=== PATIENT | male | born 1950 | race Caucasian/White ===

== ENCOUNTER 2024-10-22 14:25 | Outpatient (REF) | payer MEDICARE, SELFPAY ==
--- OUTSIDE RECORDS SUMMARY | 2024-10-22 14:36 | XMS_ITS | Clinical Summary ---
Author Organization [facility] Address [address] [place] [address] Care Team Providers Care Cath Lab Radiological Technologist Name Role Phone Sophia Monroe MD Primary Care Provider [phone] Nahum Benavides MD Unavailable Cuba Claire MD Unavailable [phone] Alan Harris MD Unavailable [phone] Jessica Nelson MD Unavailable [phone] Allergies Active Allergy Reactions Criticality Noted Date Comments Bee Venom Anaphylaxis,Swelling High 12/03/2020 FACIAL SWELLING, LOCALIZED SWELLING LOCALIZED Metoprolol Hives Medium 11/14/2020 Medications atenolol (TENORMIN) 25 MG tablet Take 1 tablet (25 mg total) by mouth daily. Active atorvastatin (LIPITOR) 80 MG tablet Take 1 tablet (80 mg total) by mouth nightly. Active Cholecalciferol (Vitamin D) 50 MCG (2000 UT) Cap Take by mouth. Active fenofibrate (TRICOR) 48 MG tablet Take 1 tablet (48 mg total) by mouth. Active fluticasone (FloNASE) 50 mcg/spray nasal spray See Instructions, SPRAY 1 SPRAY INTO BOTH NARES EVERY DAY, # 16 mL, 0 Refills, Maintenance, 03/11/23 15:04:00 EDT, [facility], 60, SPRAY 1 SPRAY INTO BOTH NARES EVERY DAY, 173, cm, 03/11/23 11:11:00 EDT, Height, 112, kg, 02/16/23 17:30:00 EDT, . 3 Active Multiple Vitamin (Multivitamin Adult) Tab Take 1 tablet by mouth daily. Active OMEprazole (PriLOSEC) 20 MG capsule Take 1 capsule (20 mg total) by mouth daily. Active Aubagio 14 MG Tab Take 14 mg by mouth daily. 4 Active EPINEPHrine 0.3 mg/0.3 mL IJ auto-injectionInd ications:Bee sting allergy Inject 0.3 mL (0.3 mg total) into the thigh once as needed for allergic reaction. Then, call 911. 2 each 4 Active aspirin 81 MG chewable tablet Chew 1 tablet (81 mg total) daily. Active benzonatate (TESSALON) 100 MG capsuleIndication s:Acute cough Take 1 capsule (100 mg total) by mouth 3 (three) times a day as needed for cough. 30 capsule 4 Active clotrimazole-beta methasone (LOTRISONE) creamIndications: Rash Apply topically 2 (two) times a day. To left thigh and abdomen for up to 14 days 45 g 4 Active finasteride (PROSCAR) 5 MG tablet Take 1 tablet (5 mg total) by mouth daily. Active oxybutynin (DITROPAN-XL) 10 MG 24 hr tablet Take 1 tablet (10 mg total) by mouth nightly. 4 Active Gemtesa 75 MG tablet Take 1 tablet (75 mg total) by mouth daily. 4 Active FLUoxetine (PROzac) 40 MG capsuleIndication s:Anxiety TAKE 1 CAPSULE BY MOUTH EVERY DAY 90 capsule 2 5 Active SUPPLY DME MISCIndications:O SA (obstructive sleep apnea) ResMed AirSense 11 with modem only (no substitute, brand medically necessary) auto 5-15 cmH2O, EPR 3 multimedia specialist, heated humidification , heated tubing, AirFit N30 or patient preference, FiNC data link to be active for indefinite use, please provide all supplies as eligible based on coverage (or on demand if patient preference), NASIR 99 1 each 5 Active amLODIPine (NORVASC) 10 MG tabletIndications :Primary hypertension TAKE 1 TABLET BY MOUTH EVERY DAY 90 tablet 5 Active Active Problems Problem Noted Date Diagnosed Date Moderate obstructive sleep apnea 07/23/2024 Avascular necrosis of bone of right hip 05/22/20 24 BPH (benign prostatic hyperplasia) 05/22/2024 Cervical spondylosis 05/22/2024 Chronic kidney disease, stage 3 05/22/2024 Chronic sinusitis 05/22/2024 Elevated PSA 05/22/2024 GERD (gastroesophageal reflux disease) Impaired fasting glucose 05/22/2024 Lumbar radiculopathy 05/22/2024 Nocturia 05/22/2024 S/P total hip arthroplasty 05/22/2024 Sigmoid diverticulosis 05/22/2024 Hypertension 01/17/2024 Anxiety 01/17/2024 Depression 01/17/2024 MS (multiple sclerosis) 01/17/2024 Hyperlipidemia 01/17/2024 Class 3 severe obesity with serious comorbidity and body mass index (BMI) of 40.0 to 44.9 in adult 01/17/2024 Coronary arteriosclerosis 10/24/2022 Osteoarthritis of left hip 07/08/2022 Spinal stenosis of lumbar re gion without neurogenic claudication 10/03/2020 Arthritis of right hip 09/25/2020 DDD (degenerative disc disease), lumbar 09/26/19 Lumbar back pain with radicu lopathy affecting right lower extremity 09/25/2020 Chronic right shoulder pain 04/22/2017 Encounters Date Type Department Care Team Description 10/22/2024 Scanned Document [facility] [address] [place] [address] Urology, Scan 08/31/[address] [address] Sophia Monroe MD 08/23/[address] [phone] Sophia Monroe MD Primary hypertension 08/22/2024 Scanned Document [facility]monary [address] [address] Kelsi Bonner MD from Last 3 Months Immunizations Immunization Administration Dates Next Due Pneumococcal Conjugate 13-Valent 07/20/2019 Pneumococcal Polysaccharide 23-Valent 10/09/2020 Family History Medical History Relation Name Comments Heart disease Father Prostate cancer Father 85 or older Breast cancer Sister 1 Aliza Lupus Sister 1 Aliza Multiple sclerosis Sister 2 Rosanna Relation Name Status Comments Father Mother Sister 1 Aliza Alive Sister 2 Rosanna Alive Social History Tobacco Use Types Packs/Day Years Used Date Smoking Tobacco: Never Smokeless Tobacco: Never Tobacco Cessation:Counseling Given: Not Answered Alcohol Use Standard Drinks/Week Comments Not Currently 0 (1 standard drink = 0.6 oz pur e alcohol) PHQ-2 Answer Date Recorded PHQ-2 Total Score 1 01/16/2024 Sex and Gender Information Value Date Recorded Sex Assigned at Male 05/21/2024 11:03 AM EST Legal Sex Male 11:37 AM EDT Gender Identity Choose not to disclose 11:03 AM EST Sexual Orientation Choose not to disclose 2023 11:03 AM EST Last Filed Vital Signs Vital Sign Reading Time Taken Comments Blood Pressure 122/72 07/09/2024 8:12 AM EST Pulse 55 07/09/2024 8:12 AM EST Temperature 36.2 ??C (97.2 ??F) 07/09/2024 8:12 AM ES T Respiratory Rate 17 07/09/2024 8:12 AM EST Oxygen Saturation 99% 07/09/2024 8:12 AM EST Inhaled Oxygen Concentration - - Weight 114 kg (252 lb 6.4 oz) 07/09/2024 8:12 AM EST Height 167.6 cm (5' 6 ) 07/09/2024 8:12 AM EST Body Mass Index 40.74 07/09/2024 8:12 AM EST Plan of Treatment Upcoming Encounters Date Type Department Care Team (Late st Contact Info) Description 11/14/2024 11:30 AM EDT Office Visit [facility] [place] [address] [place] [phone] Kelsi Bonner MD [address] [place], [place] [address] [place], [place] [phone] 01/03/2025 10:00 AM EDT Office Visit [address] [place] [phone] Sophia Monroe MD [address] [place] [address] Health Maintenance Due Date Last Done Comments Hepatitis C Virus Screening 1950 Annual Wellness Visit 1969 Physical 1969 DTaP/Tdap/Td Vaccines (1 - Tdap) 1970 Colonoscopy 1996 Zoster (Shingles) Vaccine (1 of 2) 2001 RSV Vaccine 60 years and older and Patients (1 - Risk 60-74 years 1-dose series) 2011 DXA Bone Density (Females,Ages 65 and older) 2016 COVID-19 Vaccine ( season) 2024 03/31/2023, 02/26/2022, 09/17/2021, Additional history exists Influenza Vaccine 01/11/2025 03/31/2023, , 03/10/2021, Additional history exists Pneumococcal Vaccines 50+ Completed 10/09/2020, 12/2019 Hepatitis B Vaccines Aged Out No long er eligible based on patient's age to complete this topic Insurance MEDICARE PART A & B [facility] Care Teams Cath Lab Radiological Technologist Relationship Specialty Start Date End Date Sophia Monroe MD [address] [place] [address] PCP - General Internal Medicine 01/16/24 Nahum Benavides MD [address] [place] [address] [address] [place] [address] Neurology 01/17/24 Cuba Claire MD 100 [facility] [address] [place] [address] Referring Provider 01/17/24 Alan Harris MD [address] [address] Referring Provider Surgery, Orthopedic 01/17/24 Jessica Nelson MD [address] [facility] [place] [address] Cardiovascular Disease 04/03/24
--- OUTSIDE RECORDS SUMMARY | 2024-10-22 14:36 | XMS_ITS | Data Portability ---
Author Organization [place] [facility] [place] Address [address] [place] [address] Care Team Providers Care Senior Counsel Commercial Name Role Phone [facility] Primary Care Provide r [facility] Referring Provider Assessment No assessment recorded. Plan of Treatment Reminders Order Date Submit Date Provider Last Modified By Organization Details Last Modified Time Details Appointments None record ed. Lab None record ed. Referral None record ed. Procedures None record ed. Surgeries None record ed. Imaging XR, hip, unilat eral, 2 or 3 view 023 09/29/19 [email or web address], [address], [place], [address], 3 17:13:15 Medication Orders None record ed. Patient TargetsNo targets recorded. Patient InstructionsNo instructions recorded. Reason for Referral None Reported. Results Created Date Observation Date Name Description Value Unit Range Abnormal Flag Note LastModifiedBy Organization Detail LastModifiedTime 11/06/19 23 11/05/2022 CT, pelvi s, w/o contr ast No observ ation record ed. [email or web address] ([facility]) [address] , [place], [address], 11/05/2022 15:58:29 Result Notes None recorded. Procedures Surgical History None recorded. Imaging Results Imaging Date Name Status LastModified by Organiz ation Details LastModified Time 11/05/2022 CT, pelvis, w/o contrast completed [email or web address] ([facility]) [address], [place], [address], 11/05/2022 15:58:29 Procedure Notes None recorded. Medical Equipment None Reported. Allergies Allergen ID Allergen Name Allergen Category Reaction Reaction Severity Criticality Documentation Date Start Date Code Code System Note Provider Name and Address Organization Details Recorded Time 1241 metoprolo l Not available Not available Not available Not available 09/10/2022 6918 RxNorm Sotero Wheat null, [place] - [facility] 3 08:36:41 1242 honey bee venom medicatio n Not available Not available Not available 09/10/2022 17734 7 RxNorm Sotero [place] null, [place] - [facility] 3 08:37:29 Medications Name Sig Start Date Stop Date Status Note LastModified by Organization Details LastModified Time fluoxetine 40 mg capsule TAKE 1 CAPSULE BY MOUTH DAILY active Not Available Not Available Not Available amoxicillin 500 mg capsule TAKE 1 CAPSULE EVERY 6 HOURS UNTIL FINISHED active Not Available Not Available No t Available neomycin-abimael ymyxin-hydro judy 3.5 mg/mL-10,000 unit/mL-1 % ear solution INSTILL 5 DROPS INTO THE LEFT EAR TWICE A DAY active Not Available Not Available No t Available atorvastatin 80 mg tablet TAKE 1 TABLET BY MOUTH EVERYDAY AT BEDTIME active Not Available Not Available No t Available oxybutynin chloride ER 10 mg tablet,exten ded release 24 hr TAKE 1 TABLET BY MOUTH EVERY DAY active Not Available Not Available No t Available azithromycin 250 mg tablet TAKE 2 TABLETS BY MOUTH TODAY, THEN TAKE 1 TABLET DAILY FOR 4 DAYS active Not Available Not Available No t Available lisinopril 20 mg tablet TAKE 1 TABLET BY MOUTH EVERY DAY active Not Available Not Available No t Available atenolol 25 mg tablet TAKE 1 TABLET BY MOUTH EVERY DAY active Not Available Not Available No t Available amlodipine 5 mg tablet TAKE 1 TABLET BY MOUTH EVERY DAY active Not Available Not Available No t Available ciprofloxaci n 500 mg tablet TAKE 1 TABLET BY MOUTH EVERY 12 HOURS FOR 7 DAYS active Not Available Not Available N ot Available aspirin 81 mg tablet,delay ed release active Not Available Not Available N ot Available sildenafil 100 mg tablet TAKE 1/2 TO 1 TABLET BY MOUTH 1/2 HOUR BEFORE SEXUAL ACTIVITY. TAKE WITH FOOD active Not Available Not Available No t Available ondansetron 8 mg disintegrati ng tablet active Not Available Not Available No t Available cefadroxil 500 mg capsule active Not Available Not Available Not Available meloxicam 7.5 mg tablet active Not Available Not Available Not Available methocarbamo l 750 mg tablet active Not Available Not Available Not Available benzonatate 100 mg capsule TAKE 1 CAPSULE BY MOUTH THREE TIMES A DAY FOR 5 DAYS active Not Available Not Available N ot Available lisinopril 10 mg tablet TAKE 1 TABLET BY MOUTH DAILY active Not Available Not Available Not Available clotrimazole 1 % topical solution PLACE 2 DROPS IN THE LEFT EAR CANAL 2 TIMES A DAY 14 DAYS active Not Available Not Available No t Available hydrochlorot hiazide 12.5 mg capsule TAKE 1 CAPSULE BY MOUTH EVERY DAY active Not Available Not Available No t Available epinephrine 0.3 mg/0.3 mL injection, auto-injecto r INJECT 1 PEN INTRAMUSCUL REBECA NEEDED FOR LIFE-THREAT ENING ALLERGIC REACTION. REPEAT IF NECESSARY. active Not Available Not Available N ot Available levofloxacin 750 mg tablet TAKE 1 TABLET BY MOUTH EVERY DAY FOR 5 DAYS active Not Available Not Available No t Available methylpredni solone 4 mg tablets in a dose pack TAKE DIRECTED ON PACKAGE FOR 6 DAYS active Not Available Not Available No t Available albuterol sulfate HFA 90 mcg/actuatio n aerosol inhaler INHALE 2 PUFFS EVERY 4 HOURS active Not Available Not Available No t Available cefdinir 300 mg capsule TAKE 1 CAPSULE BY MOUTH TWICE A DAY active Not Available Not Available No t Available fluticasone propionate 50 mcg/actuatio n nasal spray,suspen kirill SPRAY 1 SPRAY INTO BOTH NARES EVERY DAY active Not Available Not Available No t Available amoxicillin 500 mg-potassium clavulanate 125 mg tablet TAKE 1 TABLET BY MOUTH EVERY 8 HOURS FOR 10 DAYS active Not Available Not Available No t Available oxycodone 5 mg tablet PLEASE SEE ATTACHED FOR DETAILED DIRECTIONS active Not Available Not Available N ot Available fenofibrate nanocrystall ized 48 mg tablet TAKE 1 TABLET BY MOUTH EVERY DAY active Not Available Not Available No t Available Aubagio 14 mg tablet active Not Available Not Available No t Available Stimulant Laxative Plus 8.6 mg-50 mg tablet active Not Available Not Available Not Available Paxlovid 300 mg (150 mg x 2)-100 mg tablets in a dose pack ALL 3 TABLETS TAKEN TOGETHER TWICE DAILY FOR 5 DAYS, WITH OR WITHOUT FOOD active Not Available Not Available No t Available Vitals Date Recorded Body height Provider Name an d Address Organization Details Last Updated DateTime 09/28/[address] - [facility] 09/28/2022 16:28:43 Date Recorded Body weight Body mass index (BMI) Body height Provider Name and Address Organization Details Last Updated DateTime 09/10/2022 85991.32 g 32.5 kg/m2 175.[address] - [facility] 09/10/2022 08:37:48 Social History None recorded. Functional Status None recorded. Mental Status None recorded. Family History Nothing Reported. Medical History No medical history recorded. Past Encounters Encounter ID Performer Location Encounter Start Date Encounter Closed Date Diagnosis/Indication Diagnosis SNOMED-CT Code Diagnosis ICD10 Code Diagnosis Note [id number] KOMAL COLBERT PA-C [place] [id number] 09/10/2022 08:20:12 09/10/2022 08:57:43 Postoperative care 571021050 Z48.89 History of total replacement of left hip joint 9745069364 689875 Z96.642 [id number] Louie Benítez MD [address] [phone] 09/28/2022 15:57:28 09/28/2022 17:10:16 History of left hip replacement 8811667608 094357 Z96.642 Dislocatio n of hip joint prosthesis 715480091 Z96.649 [id number] Louie Benítez MD [place] [id number] 11/09/2022 14:42:55 11/09/2022 15:17:26 Dislocation of hip joint prosthesis 079274179 Z96.649 Health Concerns Section Related Observation LastModified by Organization Detai ls LastModified Time None Recorded Concern Status LastModified by Organization Details LastModified Time None Recorded Advance Directives Directive None Recorded Payers Encounter Date Sequence Insurance Name Policy Number Policy Sung Covered Member ID Sung Member ID Guarantor Name 09/10/2022 1 [place]GS Hernesto Toro [id number] Hernesto Toro 09/10/2022 2 [place] [id number] Hernesto Toro [id number] Hernesto Toro 09/28/2022 1 [place]: RANDELL Toro [id number] Hernesto Toro 09/28/2022 2 [place] [facility] [id number] Hernesto Toro [id number] Hernesto Toro 11/09/2022 1 [place]: RANDELL Toro [id number] 4 Hernesto Toro 11/09/2022 2 [place] [facility] [id number] Hernesto Toro [id number] Hernesto Toro Notes Date Note Type Note Provider Name and Address Organization Details Recorded Time 09/10/2022 text/html HPI: Patient is here for a 9 week follow-up from a revision LEELEE. Patient reports no symptoms. He is very pleased with his progress. He is returned back to almost all previous activities. He has realistic expectations. Physical Exam:Patient is well nourished, well- developed, in no acute distress, with appropriate mood and affect. The patient is AAOx3. The patient demonstrates good hip motion and strength. The incision is well healing. Assessment/Plan: The patient is functioning well 9 weeks from total hip arthroplasty. He has a home exercise program and has done well with physical therapy. Return for follow-up in 1 months with x-rays at that time. KOMAL COLBERT PA-C [address], [place], [address], [place] [facility] 09/11/2022 12:19:43 09/28/2022 text/html HPI: Patient is here for follow-up for his left hip. He underwent revision surgery with on July 08, 2022 for recurrent subluxations. His index surgery was in fall [address] Schwartz and then he had a revision surgery by for fracture dislocation.. He was recovering very well from his most recent surgery in June 2022 without any subluxations. Unfortunately over the weekend on September 26, while sleeping he had a anterior dislocation. He went to the [facility] emergency department and this was closed reduced. He was discharged home. He has been using a knee immobilizer. He reports minimal symptoms now. Just some soreness and some IT band tightness. He does not report any change in symptoms prior to the dislocation. Physical Exam:Patient is well nourished, well- developed, in no acute distress, with appropriate mood and affect. The patient is AAOx3. The patient demonstrates good hip motion and strength. The incision is well-healed on the left side. No subluxation with range of motion of the hip. Assessment/Plan: Patient is just under 3 months from left revision total hip replacement for subluxations, now with a dislocation on September 26, that was closed reduced in the emergency department. I discussed with him the potential outcomes. I discussed with him that the most likely time for dislocation is within the first 3 months from surgery. I discussed with him that there is a significant portion of patients, who only have 1 dislocation following surgery. As muscle strengthen and tighten, the chance of dislocation reduces. there is also a chance that he does have another dislocation. If that occurs 1 or 2 more times, we would have to consider revision surgery. We will monitor him. He will maintain anterior hip precautions. I am recommending a course of physical therapy with hip conditioning program. He will follow-up with me in 3 months with x-rays at that time. Louie Benítez MD [address], [place], [address], [place] - [facility] 09/29/2022 05:37:00 11/09/2022 text/html Bill is coming i n for follow-up for his left hip. Unfortunately had another dislocation event which happened mid October. [place]. He was in a sitting position. Radiographs at outside facility showed an anterior dislocation. This was closed reduced in the emergency department. We discussed this over the phone. I decided get a CT scan, given that he had dual mobility components. He got the CT scan last week. It did not show any implant related issues,, including any issues with the mobility components. He feels some pain in the lateral thigh. He feels some discomfort with walking. This was not present in his first 3 months following his revision surgery. I discussed with him that this is likely from his recent dislocations causing muscular pain around it. For now we will continue to watch his recovery, with included anterior hip precautions which we went over again. If we were to go back for revision surgery, options are femoral stem revision surgery versus placement of constrained liner. Femoral revision would be a fairly extensive surgery given his readapt stem. Our preference would likely be constrained liner. He will follow-up with me in 3 months at the latest with reevaluation at that time. Louie Benítez MD [address], [place], [address], [place] [facility] 11/09/2022 17:05:24
--- OUTSIDE RECORDS SUMMARY | 2024-10-22 14:36 | XMS_ITS | Encounter Summary ---
Author Organization [facility] Address [address] [place] [address] Care Team Providers Care Aircraft Ordnance Technician Name Role Phone Sophia Monroe MD Primary Care Provider Nahum Benavides MD Unavailable Cuba Claire MD Unavailable Alan Harris MD Unavailable [phone] Jessica Nelson MD Unavailable [phone] Encounter Details Date Type Department Care Team (Late st Contact Info) Description 03/02/2024 Scanned Document [facility] [address] [place] [address] Urology, Scan Social History Tobacco Use Types Packs/Day Years Used Date Smoking Tobacco: Never Smokeless Tobacco: Never Alcohol Use Standard Drinks/Week Comments Not Currently [...] not to disclose 2023 11:03 AM EST documented as of this encounter Plan of Treatment Upcoming Encounters Date Type Department Care Team (Late st Contact Info) Description 11/14/2024 11:30 AM EDT Office Visit [facility] [address] [place] [address] Kelsi Bonner MD [address] [place] [address] 01/03/2025 10:00 AM EDT Office Visit [facility] [address] [facility] [address] [place] [address] Sophia Monroe MD [address] [facility] [place] [address] documented as of this encounter Visit Diagnoses Not on filedocumented in this encounter Care Teams Aircraft Ordnance Technician Relationship Specialty Start Date End Date Sophia Monroe MD [address] [facility] [place] [address] PCP - General Internal Medicine 01/16/24 Nahum Benavides MD [address] [place] [address] [address] [place] [address] Neurology 01/17/24 Cuba Claire MD 100 [facility] [address] [place] [address] Referring Provider 01/17/24 Alan Harris MD [address] [address] Referring Provider Surgery, Orthopedic 01/17/24 Jessica Nelson MD [address] [place] [address] [address] [place] [address] Cardiovascular Disease 04/03/24 documented as of this encounter
--- OUTSIDE RECORDS SUMMARY | 2024-10-22 14:36 | XMS_ITS | Encounter Summary ---
Author Organization Formerly [facility] Address [address] [place] [id number] Care Team Providers Care Assistant Pastry Chef Name Role Phone Sophia Monroe MD Primary Care Provider Nahum Benavides MD Unavailable [place] Claire MD Unavailable Alan Harris MD Unavailable [phone] Jessica Nelson MD Unavailable [phone] Encounter Details Date Type Department Care Team (Late st Contact Info) Description 10/22/2024 Scanned Document [facility] [address] [place] [address] Urology, Scan Social History Tobacco Use Types [...] Description 11/14/2024 11:30 AM EDT Office Visit [facility] [address] [place] [address] Kelsi Bonner MD [address] [place] [address] 01/03/2025 10:00 AM EDT Office Visit [facility] [place] [address] [facility] [address] [place] [address] Sophia Monroe MD 100 [facility] [place] [address] documented as of this encounter Visit Diagnoses Not on filedocumented in this encounter Care Teams Assistant Pastry Chef Relationship Specialty Start Date End Date Sophia Monroe MD [address] [facility] [place] [address] PCP - General Internal Medicine 01/16/24 Nahum Benavides MD [address] [place] [address] [address] [place] [address] Neurology 01/17/24 Cuba Claire MD 100 [facility] [address] [place] [address] Referring Provider 01/17/24 Alan Harris MD [address] [address] Referring Provider Surgery, Orthopedic 01/17/24 Jessica Nelson MD [address] [place] [address] [place] [address] Cardiovascular Disease 04/03/24 documented as of this encounter
--- OUTSIDE RECORDS SUMMARY | 2024-10-22 14:36 | XMS_ITS | Encounter Summary ---
Author Organization Formerly [facility] Address [address] [place] [address] Care Team Providers Care Candy Mixer Name Role Phone Sophia Monroe MD Primary Care Provider Nahum Benavides MD Unavailable Cuba Claire MD Unavailable [phone] Alan Harris MD Unavailable [phone] Jessica Nelson MD Unavailable [phone] Encounter Details Date Type Department Care Team (Late st Contact Info) Description 05/01/2024 Scanned Document [address] [phone] Primary Care, Scan Social History Tobacco Use Types Packs/Day [...] Description 11/14/2024 11:30 AM EDT Office Visit [facility] [address] [place] [address] Kelsi Bonner MD [address] [place] [address] [place] [address] 01/03/2025 10:00 AM EDT Office Visit [facility] 100 [facility] [address] [place] [address] Sophia Monroe MD [address] [place] [address] documented as of this encounter Visit Diagnoses Not on filedocumented in this encounter Care Teams Candy Mixer Relationship Specialty Start Date End Date Sophia Monroe MD [address] [place] [address] PCP - General Internal Medicine 01/16/24 Nahum Benavides MD [address] [place] [address] [address] [place] [address] Neurology 01/17/24 Cuba Claire MD 100 [facility] [address] [place] [address] Referring Provider 01/17/24 Alan Harris MD [address] [address] Referring Provider Surgery, Orthopedic 01/17/24 Jessica Nelson MD [address] [place] [address] [address] [place] [address] Cardiovascular Disease 04/03/24 documented as of this encounter
--- OUTSIDE RECORDS SUMMARY | 2024-10-22 14:36 | XMS_ITS | Data Portability ---
Author Organization [facility], [facility] - INPATIENT Address [address] [place] [address] Care Team Providers Care Senior Structural Engineer Name Role Phone GIUSEPPE OWUSU Primary Care Provider Assessment Encounter Date Assessment Date Assessment LastModified by Organization Details LastModified Time 04/20/2023 04/20/2023 Imaging: Radiographs obtained in the office on 04/20/2023 including AP pelvis and left frog-leg lateral were reviewed. These demonstrate well-seated bilateral total hip arthroplasties in appropriate alignment without evidence of fracture or lucency. There is no change when compared to films from 03/23/2023. Assessment: 8 weeks status post left revision LEELEE overall doing very well. Plan: The findings were reviewed with the patient and his . Discussed that at this point he can discontinue use of the knee immobilizer. He can also discontinue abductor precautions. Discussed that I would like him to use pain as his guide as he resumes fairly normal day-to-day activity. We will hold off on formal physical therapy at this time as I do not want him to overdo it. We discussed appropriate activity level for the stage of the recovery. We will plan to follow-up in the office in another 4 weeks for reevaluation and possibly referral to outpatient physical therapy. The patient is in agreement with this plan and all questions were answered. [email or web address] Not available 04/20/2023 14:31:19 05/18/2023 05/18/2023 Imaging: Radiographs obtained in the office on 05/18/2023 including AP pelvis and left frog-leg lateral were reviewed. These demonstrate well-seated bilateral total hip arthroplasties in appropriate alignment without evidence of fracture or lucency. There is no change when compared to films from 04/20/2023. Assessment: 12 weeks status post left revision LEELEE overall doing very well. Plan: The findings were reviewed with the patient and his . Discussed that he is overall doing very well. At this point it would be reasonable to move forward with outpatient physical therapy to slowly work on ROM and strengthening, restrictions discussed. We will plan to have him follow up with Dr. Harris in 4-6 weeks for reevaluation. The patient is in agreement with this plan. All questions were answered. [email or web address] Not available 06/14/2023 07:22:14 06/22/2023 06/22/2023 ASSESSMENT: Mr. Toro, a 73-year-old male, is showing signs of improvement four months post-surgery. His balance is returning, and he reports no feelings of instability or pain during therapy. His gait still shows a slight sway, likely due to muscle weakness around the left hip. Radiographs reveal that two out of three anchors are in their correct positions, and the hip joint appears fixed. PLAN: - Continue with current therapy focusing on balance and stability. - Hold off on strengthening exercises such as leg presses for now due to ongoing healing. - Reassess the patient's progress in two to three months. - Encourage the patient to continue physiologic activities like walking. [email or web address] Not available 06/22/2023 12:57:52 09/21/2023 09/21/2023 ASSESSMENT: Mr. Toro, a 73-year-old male, is doing well seven months post-hip surgery. He reports feeling good and is interested in increasing his activity level. He experiences some limitations due to his hip, especially if he overdoes it, but denies any significant weakness. Radiographs of the hip show stable anchors and indicate that the muscle has essentially healed to the bone. He is able to walk without a significant limp and can squat down without any feeling of instability. He occasionally experiences a little bit of instability when trying to balance, especially if he has been busy all day. He is interested in starting to play golf and wants to know if he can start climbing a ladder. He also inquires about stretching exercises he can do. He reports that he dislocated his finger while playing basketball with his grandkids about three to four weeks ago. PLAN: -Patient can start playing golf, starting with the cdl b driver in the car and high number irons with easy swings -Patient can start climbing a ladder -Patient can stretch to loosen up the body, but should take it easy for stretches around the hip -Patient should listen to his body and slow down or back off if he feels tired or if it hurts -Patient should continue to work on his walking, focusing on keeping his head straight -Patient should take amoxicillin one hour before dental work for two years -Follow-up visit scheduled for around two years [email or web address] Not available 09/21/2023 13:37:06 09/26/2024 09/26/2024 ASSESSMENT: - Left hip pain, likely muscular in origin. 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 PLAN: We discussed the importance of shutting down the inflammatory process. Hernesto was prescribed Celebrex, a prescription-stre ngth anti-inflammatory , to be taken consistently for a minimum of two weeks, with a 30-day supply provided. He was advised not to take ibuprofen while on Celebrex. If there is no improvement in two to four weeks, he should contact the office for further evaluation, potentially including a CAT scan to assess bony fragments. Hernesto was advised to find a balance between his previous activity level and his current one, avoiding overexertion. He was encouraged to use a recumbent bike with very low resistance to keep the hip moving without causing additional strain. Ice and heat therapy were recommended, with heat to be used before activities and ice afterward. He was advised to avoid active flexion exercises and to use the lightest resistance bands for any exercises involving the hip abductors. Bodyweight squats were deemed acceptable as long as they did not cause pain. [email or web address] Not available 09/26/2024 12:54:20 Plan of Treatment Reminders Order Date Submit Date Provider Last Modified By Organization Details Last Modified Time Details Appointments None recorded. Lab None recorded. Referral physical therapist referral 2022 023 [facility], [address] [facility], [place], [address], 15:28:53 Procedures None recorded. Surgeries None recorded. Imaging None recorded. Medication Orders celecoxib 200 mg capsule 2024 025 [id number], [address] [place], [address], 5 13:19:24 amoxicillin 500 mg capsule 2023 024 [id number], [address] [place], [address], 4 13:30:35 Patient TargetsNo targets recorded. Patient InstructionsNo instructions recorded. 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, rectus proximal tendon repair and abductor repair Referring Physician: Stephanie Roque, Physician Swimmer, Encounter Date: 05/18/2023 Results Created Date Observation Date Name Description Value Unit Range Abnormal Flag Note LastModifiedBy Organization Detail LastModifiedTime 06/22/19 24 06/22/2023 xr hip left 2-3vw _W or wo pelvi s Fin al Report EXAM#: [id number] PROCED URE: DXR 0174 XR HIP LEFT 2-3vw_ w or wo Pelvis Jun 22 2023 12:27P M CLINIC [facility] INDICA TION: pain in left hip Compar alie: 2022 - FINDIN GS: Left hip total arthro plasty is in standa rd alignm ent withou t hardwa re compli cation s. Contra latera l total hip arthro plasty is presen t. NUMBER OF IMAGES : 3 Report ed by : MARISOL RIOS M.D. On: Jun 22 2023 2:56P Signed by: MARISOL RIOS M.D. On: Jun 22 2023 2:56P [email or web address] [facility] [address] [facility], [place], [address], 06/22/2023 15:35:02 09/21/19 24 09/21/2023 xr hip left 2-3vw _W or wo pelvi s Fin al Report EXAM#: [id number] PROCED URE: DXR 0174 XR HIP LEFT 2-3vw_ w or wo Pelvis Sep 21 2023 1:15PM CLINIC AL INDICA TION: PAIN IN LEFT HIP INDICA TION: PAIN IN LEFT HIP Findin gs: There is a left hip arthro plasty in place. There is no eviden ce of hardwa re compli cation or malali gnment . No change in alignm ent from . Incide ntal right THR.. Sacroi liac joints are within normal limits . No osseou s lesion is identi fied and no soft tissue abnorm ality is seen. NUMBER OF IMAGES : 2 Report ed by : YULIET BAEZA M.D. On: Sep 21 2023 1:37P Signed by: YULIET BAEZA M.D. On: Sep 21 2023 1:37P [email or web address] [facility] [address] [facility], [place], [address], 09/21/2023 15:23:48 09/27/19 25 09/26/2024 xr hip 2-3 vw left Sweta [employer] Pt Name : MASSIEL TORO AM 1 - Date: 1949 Sex: M Locati on : [facility] DXRAD Visit: [id number] Admit Date: 2024 Date of Servic e: 2024 Exam : XR HIP 2-3 VW LEFT Status : Final Order MD : XOCHILT ROQUE Tel#:( [phone] CC Provid er:, ------ ------ ------ ------ ------ ------ ------ ------ ------ ------ ------ ------ ------ - Compar alie: and FINDIN GS: Left hip total arthro plasty is in standa rd alignm ent withou t hardwa re compli cation s. An anchor overly ing the inferi or medial aspect of the greate r trocha nter is locate d in the soft tissue s on the obliqu e view with hetero topic ossifi cation nearby . As before , 2 cercla ge wires encirc le the proxim al femur and anothe r anchor overli es the supero latera l acetab ulum. Contra latera l total hip arthro plasty is presen t. REPORT SIGNED BY: MARISOL RIOS 12:14: 02 Workst ation: [id number] [email or web address] [facility] - Rad [address] [facility], [place], [address], 09/26/2024 15:57:15 Result Notes None recorded. Procedures Surgical History Date Name Laterality Status Provider Name and Address Organization Details Recorded Time 02/23/20 23 Orthopaedic Surgery completed Mina Ramirez MA [facility] 04/20/2023 13:10:46 07/08/19 23 Orthopaedic Surgery completed Mina Ramirez MA [facility] 04/20/2023 13:10:38 04/09/20 21 Orthopaedic Surgery completed Mina Ramirez MA [facility] 04/20/2023 13:10:26 04/02/20 21 Other completed Mina Ramirez [facility] 04/20/2023 13:10:06 12/12/19 21 Orthopaedic Surgery completed Mina Ramirez [facility] 04/20/2023 13:10:52 06/13/19 15 Orthopaedic Surgery completed Marichuy Dye MA [facility] 11/17/2022 12:04:00 06/13/19 14 placement of stent in pulmonary artery completed Marichuy Dye MA [facility] 11/17/2022 12:03:42 cholecystectomy completed Marichuy Dye MA [facility] 11/17/2022 12:04:14 Imaging Results Imaging Date Name Status LastModified by Organiz ation Details LastModified Time 06/22/2023 xr hip left 2-3vw_W or wo pelvis completed [email or web address] [facility] [address] [facility], [place], [address], 06/22/2023 15:35:02 09/21/2023 xr hip left 2-3vw_W or wo pelvis completed [email or web address] [facility] [address] [facility], [place], [address], 09/21/2023 15:23:48 09/26/2024 xr hip 2-3 vw left completed [email or web address] [facility] - Rad [address] [facility], [place], [address], 09/26/2024 15:57:15 Procedure Notes None recorded. Medical Equipment None Reported. Allergies Allergen ID Allergen Name Allergen Category Reaction Reaction Severity Criticality Documentation Date Start Date Code Code System Note Provider Name and Address Organization Details Recorded Time 250345 metoprolo l Not available Not available Not available Not available 11/17/2022 6918 RxNorm Marichuy jaime [facility] 3 12:00:18 505317 honey bee venom medicatio n Not available Not available Not available 11/17/2022 67035 7 RxNorm Marichuy jaime [facility] 3 12:00:24 Medications Name Sig Start Date Stop Date Status Note LastModified by Organization Details LastModified Time celecoxib 200 mg capsule Take 1 capsule every day by oral route. 2024 active Not Available Not Available Not Avai lable amoxicillin 500 mg capsule 4 tablets 1 hour prior to dental work; for 2 years 2023 active Not Available Not Available Not Avai lable atorvastatin 80 mg tablet Take 1 tablet every day by oral route. active Not Available Not Available No t Available atenolol 25 mg tablet Take 1 tablet every day by oral route. active Not Available Not Available No t Available amlodipine 5 mg tablet Take 1 tablet every day by oral route. active Not Available Not Available No t Available omeprazole 20 mg capsule,delaye d release Take 1 capsule every day by oral route. active Not Available Not Available No t Available aspirin 81 mg chewable tablet Chew 1 tablet every day by oral route. active Not Available Not Available No t Available fluoxetine 20 mg capsule Take 1 capsule every day by oral route. active Not Available Not Available No t Available fenofibrate micronized 48 mg tablet Take 1 tablet every day by oral route. active Not Available Not Available No t Available Vitamin D active Not Available Not Sheri ilable Not Available multivitamin active Not Available Not Available Not Available Aubagio 14 mg tablet Take 1 tablet every day by oral route. active Not Available Not Available No t Available Vitals Date Recorded Body height Body mass index (BMI) Body weight Provider Name and Address Organization Details Last Updated DateTime 04/20/2023 170.18 cm 37.6 kg/m2 658594.17 g [facility] 04/20/2023 13:09:38 Date Recorded Body height Body mass index (BMI) Body weight Provider Name and Address Organization Details Last Updated DateTime 05/18/2023 170.18 cm 37.6 kg/m2 533981.17 g [facility] 05/18/2023 13:58:04 Date Recorded Body height Provider Name an d Address Organization Details Last Updated DateTime 06/22/2023 170.18 cm [facility] 06/22/2023 12:29:16 Date Recorded Body height Body mass index (BMI) Body weight Provider Name and Address Organization Details Last Updated DateTime 09/21/2023 170.18 cm 37.6 kg/m2 759596.17 g Harmony Herrera [facility] 09/21/2023 13:08:15 Social History None recorded. Functional Status Question Answer Note LastModified by Organizat ion Details LastModified Time What is your level of alcohol consumption? None [email or web address] Information not available 11/17/2022 Do you or have you ever used smokeless tobacco? Never used smokeless tobacco [email or web address] Information not available 11/17/2022 Are you currently employed? No [email or web address] Information not available 11/17/2022 What is your occupation? Retired Information not available 11/17/2022 Do you or have you ever used e-cigarettes or vape? Never used electronic cigarettes [email or web address] Information not available 11/17/2022 Mental Status None recorded. Family History Relationship Description Onset Age of this Age Resolved Age Notes LastModified by Organization Details LastModified Time Father No current problems or disability [email or web address] Not available 12:02:57 Mother No current problems or disability [email or web address] Not available 12:02:57 Medical History Condition Response Heart Problems Y High Blood Pressure Y Any Other Significant Medical Issues Y Angina, Heart Failure or Attack Y Past Encounters Encounter ID Performer Location Encounter Start Date Encounter Closed Date Diagnosis/Indication Diagnosis SNOMED-CT Code Diagnosis ICD10 Code Diagnosis Note [id number] CHAYO HARRIS MD [facility] am Office [address] [place] [address] 11/17/2022 10:28:04 11/17/2022 12:37:58 Instability of left hip joint 182437327 M25.823 [id number] CHAYO HARRIS MD [facility] am Office [address] [place] [address] 12/01/2022 09:55:04 12/08/2022 12:23:15 [id number] MAYELA OCONNELL [facility] am Office [address] [place] [address] 03/23/2023 09:17:21 03/23/2023 12:31:58 Instability of left hip joint 229905376 M25.926 [id number] MAYELA OCONNELL [facility] am Office [address] [place] [address] 04/20/2023 12:37:15 04/20/2023 14:41:00 Instability of left hip joint 643548829 M25.119 [id number] MAYELA OCONNELL [facility] am Office [address] [place] [address] 05/18/2023 12:30:16 05/20/2023 12:40:06 Instability of left hip joint 518039174 M25.894 [id number] CHAYO HARRIS MD [facility] am Office [address] [place] [address] 06/22/2023 11:29:21 06/22/2023 17:11:46 Recurrent dislocation of hip 778530533 M24.321 [id number] CHAYO HARRIS MD [facility] am Office [address] [place] [address] 09/21/2023 11:45:03 09/21/2023 13:39:54 Instability of left hip joint 834304858 M25.411 [id number] MAYELA Oconnell [place] [facility] [address] [facility],[address] [address] 09/26/2024 11:59:28 09/26/2024 13:53:20 Pain of left hip joint 5161289174 46256 M25.552 Health Concerns Section Related Observation LastModified by Organization Detai ls LastModified Time None Recorded Concern Status LastModified by Organization Details LastModified Time None Recorded Advance Directives Directive None Recorded Payers Insurance Date Sequence Insurance Name Policy Number Policy Sung Covered Member ID Sung Member ID Guarantor Name 09/21/2024 1 [place] [employer] Hernesto Toro [id number] Hernesto Toro 09/21/2024 2 [place] [id number] Hernesto Toro [id number] Hernesto Toro 09/23/2024 [employer] - SPECIALITY CLAIMS (MEDICARE DME REGION A) Hernesto Toro [id number] Hernesto Toro Notes Date Note Type Note Provider Name and Address Organization Details Recorded Time 04/20/2023 text/html Bill presents to day for follow-up regarding his left hip. He is status post left LEELEE revision on 02/22/2023. He is overall doing very well. He has been ambulating at full weightbearing with a walker and knee immobilizer. He was working with in-home PT focusing on knee range of motion. Reports minimal pain. MAYELA OCONNELL [address] [place] [address], [phone], [facility] 04/20/2023 14:47:05 05/18/2023 text/html Bill presents to day for follow-up regarding his left hip. He is status post left LEELEE revision on 02/22/2023. He is overall doing very well. Reports minimal pain. He has ambulating at full WB and modifying his activities. Overall pleased with his progress. MAYELA OCONNELL [address] [place] [address], [phone], [facility] 06/14/2023 07:22:18 06/22/2023 text/html Mr. Toro is a 73-year-old male who presents to the clinic for a follow-up visit after his hip surgery. The patient reports that he has been feeling pretty good and has been using his hip more, attributing any discomfort to muscle soreness. He denies any feelings of instability but mentions that his balance has just started to come back after being off for a while. He also mentions having an inner ear problem that might be contributing to his balance issues. The patient has been in therapy where they have been working on his balance and stability. He reports no pain during therapy sessions. The patient had three surgeries before the current one, and he mentions that he could feel his hip dislocate and then pop back in himself before the current surgery. CHAYO HARRIS MD [address] [place] [address], [phone], [facility] 06/24/2023 13:39:27 09/21/2023 text/html Mr. Toro is a 73-year-old male who presents to the clinic for a follow-up visit. He reports feeling good and does not have any issues. He mentions that he sometimes feels limitations due to his hip, especially if he overdoes it, resulting in soreness. He denies any weakness and is interested in starting to work out to build strength back in his hip. He has been doing the exercises provided by therapy and has not been to the gym. He reports that he can squat down without any feeling of instability. He occasionally experiences a little bit of instability when trying to balance, especially if he has been busy all day. He reports feeling tired but does not feel like he is going to fall over. He is interested in starting to play golf and wants to know if he can start climbing a ladder. He also inquires about stretching exercises he can do. He mentions that he dislocated his finger while playing basketball with his grandkids about three to four weeks ago. CHAYO HARRIS MD [address] [place] [address], [phone], [facility] 09/28/2023 08:24:54 09/26/2024 text/html Hernesto Toro i s a 74-year-old male who presents for a follow-up regarding his left hip. He was doing well after a L LEELEE revision in February 2023 but recently started experiencing significant pain. He initially thought the pain was muscular. He tried riding a recumbent bike, which did not help. The pain is noticeable when walking, especially when turning to the left or right, and when lifting the leg. The pain is located down the front of the thigh. It also hurts when lying in bed and moving the leg in certain ways. Sitting for any length of time and then getting up also causes significant pain. The pain started after he increased his activity level, including doing lawn work, fixing a fence, moving furniture, and moving the recumbent bike up a flight of stairs. He does not have trouble laying on the affected side at night. He sometimes experiences weakness in the leg, particularly when going up and down stairs. He takes ibuprofen, which helps when taken, but he usually only takes it at night. MAYELA Oconnell [address] [place] [address], [phone], [facility] 10/16/2024 13:22:08
--- OUTSIDE RECORDS SUMMARY | 2024-10-22 14:36 | XMS_ITS | Encounter Summary ---
Author Organization [facility] Address [address] [place] [address] Care Team Providers Care Magazine Publisher Name Role Phone Sophia Monroe MD Primary Care Provider Nahum Benavides MD Unavailable Cuba Claire MD Unavailable [phone] Alan Harris MD Unavailable [phone] Jessica Nelson MD Unavailable [phone] Encounter Details Date Type Department Care Team (Late st Contact Info) Description 01/25/[address] [phone] Sophia Monroe MD [address] [place] [address] [id number] Social History Tobacco Use Types Packs/Day Years [...] AM EST documented as of this encounter Miscellaneous Notes * Telephone Encounter - Cherrie Joshi MA - 01/25/2024 3:34 PM EDT Pt aware of chest xray documented in this encounter Plan of Treatment Upcoming Encounters Date Type Department Care Team (Late st Contact Info) Description 11/14/2024 11:30 AM EDT Office Visit [facility] [place] [address] [place] [address] Kelsi Bonner MD [address] [facility] [address] [place] [address] 01/03/2025 10:00 AM EDT Office Visit [facility] [address] [facility] [address] [place] [phone] Sophia Monroe MD [address] [place] [address] documented as of this encounter Visit Diagnoses Not on filedocumented in this encounter Care Teams Magazine Publisher Relationship Specialty Start Date End Date Sophia Monroe MD [address] [place] [address] PCP - General Internal Medicine 01/16/24 Nahum Benavides MD [address] [place] [address] [address] [place] [address] Neurology 01/17/24 Cuba Claire MD [address] [facility] [address] [place] [address] Referring Provider 01/17/24 Alan Harris MD [address] [place] [address] [address] Referring Provider Surgery, Orthopedic 01/17/24 Jessica Nelson MD [address] [place] [address] [place] [address] Cardiovascular Disease 04/03/24 documented as of this encounter
--- OUTSIDE RECORDS SUMMARY | 2024-10-22 14:36 | XMS_ITS ---
Author Name [facility] Organization Unknown Results Test Name/Text Value Interpretation Date Range Source Lipase SerPl-cCnc 80U/L Above high normal [id number] 7 - 60 [facility] Chloride SerPl-sCnc 104mmol/L Normal [id number] 98 - 11 0 [facility] Globulin Ser Calc-mCnc 2g/dL(calc) Normal [id number] 1.9 - 3.7 [facility] Prot SerPl-mCnc 6.3g/dL Normal [id number] 6.1 - 8.1 [facility] Calcium SerPl-mCnc 9.4mg/dL Normal [id number] 8.6 - 10 .3 [facility] BUN SerPl-mCnc 24mg/dL Normal [id number] 7 - 25 [facility] eGFRcr SerPlBld CKD-EPI 2020 52mL/min/1.73m2 Below low normal [id number] - [facility] Creat SerPl-mCnc 1.42mg/dL Above high normal [id number] 0. 7 - 1.28 [facility] Albumin SerPl-mCnc 4.3g/dL Normal [id number] 3.6 - 5. 1 [facility] Sodium SerPl-sCnc 141mmol/L Normal [id number] 135 - 146 [facility] Glucose SerPl-mCnc 83mg/dL Normal [id number] 65 - 139 [facility] ALT SerPl-cCnc 17U/L Normal [id number] 9 - 46 [facility] Bilirub SerPl-mCnc 0.4mg/dL Normal [id number] 0.2 - 1. 2 [facility] ALP SerPl-cCnc 59U/L Normal [id number] 35 - 144 [facility] AST SerPl-cCnc 25U/L Normal [id number] 10 - 35 [facility] CO2 SerPl-sCnc 26mmol/L Normal [id number] 20 - 32 [facility] BUN/Creat SerPl 17(calc) Normal [id number] 6 - 22 Q [facility] Potassium SerPl-sCnc 4.4mmol/L Normal [id number] 3.5 - 5.3 [facility] Albumin/Glob SerPl 2.2(calc) Normal [id number] 1 - 2.5 [facility] Platelet # Bld Auto 229Thousand/uL Normal [id number] 14 0 - 400 [facility] MCHC RBC Auto-mCnc 32.6g/dL Normal [id number] 32 - 36 [facility] RBC # Bld Auto 4.99Million/uL Normal [id number] 4.2 - 5 .8 [facility] MCH RBC Qn Auto 28.1pg Normal [id number] 27 - 33 Q [facility] PMV Bld Alvin-Neto 11.2fL Normal [id number] 7.5 - 12 .5 [facility] RDW RBC Auto-Rto 12.6% Normal [id number] 11 - 15 [facility] WBC # Bld Auto 8.2Thousand/uL Normal [id number] 3.8 - 1 0.8 [facility] Hgb Bld-mCnc 14g/dL Normal [id number] 13.2 - 17.1 QU EST MCV RBC Auto 86.2fL Normal [id number] 80 - 100 [facility] T Hct VFr Bld Auto 43% Normal [id number] 38.5 - 50 [facility] History of Medication Use Medication Directions Dispensed Refills Start Date End Date Stat us SUPPLY DME MISC [employer]Med AirSense 11 with modem only (no substitute, brand medically necessary) auto 5-15 cmH2O, EPR 3 time stamp assembler, heated humidification, heated tubing, AirFit N30 or patient preference, [employer] data link to be active for indefinite use, please provide all supplies as eligible based on coverage (or on 07/23/2024 active FLUoxetine (PROzac) 40 MG capsule TAKE 1 CAPSULE BY MOUTH EVERY DAY 06/19/2024 active Gemtesa 75 MG tablet Take 1 tablet (75 m g total) by mouth daily. 03/23/2024 active amLODIPine (NORVASC) 10 MG tablet Take 1 tablet (10 mg total) by mouth daily. 02/20/2024 active benzonatate (TESSALON) 100 MG capsule Take 1 capsule (100 mg total) by mouth 3 (three) times a day as needed for cough. 02/10/2024 active clotrimazole-betameth asone (LOTRISONE) cream Apply topically 2 (two) times a day. To left thigh and abdomen for up to 14 days 02/10/2024 active Aubagio 14 MG Tab Take 14 mg by mouth daily. 06/22/2023 active fluticasone (FloNASE) 50 mcg/spray nasal spray See Instructions, SPRAY 1 SPRAY INTO BOTH NARES EVERY DAY, # 16 mL, 0 Refills, Maintenance, 03/11/23 15:04:00 EDT, [id number], 60, SPRAY 1 SPRAY INTO BOTH NARES EVERY DAY, 173, cm, 03/11/23 11:11:00 EDT, Height, 112, kg, 02/16/23 17:30:00 EDT, . 03/11/2023 active albuterol sulfate HFA 90 mcg/actuation aerosol inhaler INHALE 2 PUFFS EVERY 4 HOURS active aspirin 81 mg tablet,delayed release active azithromycin 250 mg tablet TAKE 2 TABLETS BY MOUTH TODAY, THEN TAKE 1 TABLET DAILY FOR 4 DAYS active benzonatate 100 mg capsule TAKE 1 CAPSULE BY MOUTH THREE TIMES A DAY FOR 5 DAYS active epinephrine 0.3 mg/0.3 mL injection, auto-injector INJECT 1 PEN INTRAMUSCULARLY NEEDED FOR LIFE-THREATENING ALLERGIC REACTION. REPEAT IF NECESSARY. active lisinopril 20 mg tablet TAKE 1 TABLET BY MOUTH EVERY DAY active ondansetron 8 mg disintegrating tablet act chandrakant oxybutynin chloride ER 10 mg tablet,extended release 24 hr TAKE 1 TABLET BY MOUTH EVERY DAY active oxycodone 5 mg tablet ac tive sildenafil 100 mg tablet TAKE 1/2 TO 1 TABLET BY MOUTH 1/2 HOUR BEFORE SEXUAL ACTIVITY. TAKE WITH FOOD active atorvastatin (LIPITOR) 80 MG tablet Take 1 tablet (80 mg total) by mouth nightly. active Cholecalciferol (Vitamin D) 50 MCG (2000 UT) Cap Take by mouth. active finasteride (PROSCAR) 5 MG tablet Take 1 tablet (5 mg total) by mouth daily. active Allergies Allergen Reaction Severity Comment Documented Date Source Statu s BEE VENOM PROTEIN (HONEY BEE) ENS_AONECT Problems Problem Status Onset Date Problem Type Date of Resoluti on Source MS (multiple sclerosis) active 2024-01-17 [facility] GERD (gastroesophageal reflux disease) active 2024-05-22 [facility]Act [facility] Lumbar radiculopathy active 2024-05-22 [facility] Cervical spondylosis active 2024-05-22 ProblemAct [facility] Spinal stenosis of lumbar region without neurogenic claudication active 2020-10-03 ProblemAct [facility] Hyperlipidemia active 2024-01-[address] Depression active 2024-01-17 [facility]Act [facility] Arthritis of right hip active 2020-09-25 ProblemAct [facility] Osteoarthritis of left hip active 2022-07-08 ProblemAct [facility] Chronic kidney disease, stage 3 active 2024-05-22 [facility]Act [facility] Coronary arteriosclerosis active 2022-10-24 [facility] DDD (degenerative disc disease), lumbar active 2020-09-25 [facility]Act [facility] S/P total hip arthroplasty active 2024-05-22 [facility]Act [facility] Avascular necrosis of bone of right hip active 2024-05-22 [facility] BPH (benign prostatic hyperplasia) active 2024-05-22 [facility] Elevated PSA active 2024-05-22 [facility]Act [facility] Hypertension active 2024-01-17 ProblemAct [facility] Anxiety active 2024-01-17 ProblemAct [facility] Chronic sinusitis active 2024-05-22 ProblemAct [facility] Sigmoid diverticulosis active 2024-05-22 ProblemAct [facility] Class 3 severe obesity with serious comorbidity and body mass index (BMI) of 40.0 to 44.9 in adult active 2024-01-17 [facility]Act [facility] Chronic right shoulder pain active 2017-04-22 ProblemAct [facility] Impaired fasting glucose active 2024-05-22 ProblemAct [facility] Nocturia active 2024-05-22 ProblemAct [facility] Immunizations Vaccine Date Source Lot Number Status Pneumococcal Polysaccharide 23-Valent 10/09/2020 [facility] [id number] completed Pneumococcal Conjugate 13-Valent 07/20/2019 [facility] [id number] completed Encounters Encounter Type Encounter Reason Primary Diagnosis Location Date Ambulatory Obstructive sleep apnea (adult) (pediatric) Obstructive sleep apnea (adult) (pediatric) [facility] 07/09/2024 Ambulatory Essential (primary) hypertension Essential (primary) hypertension [facility] 07/09/2024 Ambulatory Other symptoms and signs involving the nervous system Other symptoms and signs involving the nervous system [facility] 05/22/2024 Ambulatory Essential (primary) hypertension Essential (primary) hypertension [facility] 04/02/2024 Ambulatory Essential (primary) hypertension Essential (primary) hypertension [facility] 02/20/2024 Ambulatory Acute cough Acute cough [facility] 02/10/2024 Ambulatory Acute cough Acute cough [facility] 01/23/2024 Ambulatory Prediabetes Prediabetes [facility] 01/16/2024 Ambulatory [facility] 12/10/2022 [facility] 12/10/2022 [facility] 11/04/2022 Ambulatory [facility] 09/10/2022 Care Team Organization Name Specialty Phone Email Start Date End Da te [facility] 01/17/2024 025 [facility] 01/16/2024 [facility] NO PCP Primary Care 10/17/2023
--- OUTSIDE RECORDS SUMMARY | 2024-10-22 14:36 | XMS_ITS | Encounter Summary ---
Author Organization [facility] Address [address] [place] [address] Care Team Providers Care Floor Framer Name Role Phone Sophia Monroe MD Primary Care Provider Nahum Benavides MD Unavailable Cuba Claire MD Unavailable [phone] Alan Harris MD Unavailable [phone] Jessica Nelson MD Unavailable [phone] Encounter Details Date Type Department Care Team (Late st Contact Info) Description 01/20/2024 Scanned Document [facility] [address] [place] [address] Urology, Scan Social History Tobacco Use Types [...] Description 11/14/2024 11:30 AM EDT Office Visit [facility] [address] [place] [address] Kelsi Bonner MD [address] [place] [address] 01/03/2025 10:00 AM EDT Office Visit [facility] [place] 100 [facility] [address] [place] [address] Sophia Monroe MD 100 [facility] [place] [address] documented as of this encounter Visit Diagnoses Not on filedocumented in this encounter Care Teams Floor Framer Relationship Specialty Start Date End Date Sophia Monroe MD 100 [facility] [place] [address] PCP - General Internal Medicine 01/16/24 Nahum Benavides MD [address] [place] [address] [address] [place] [address] Neurology 01/17/24 Cuba Claire MD 100 [facility] [address] [place] [address] Referring Provider 01/17/24 Alan Harris MD [address] [address] Referring Provider Surgery, Orthopedic 01/17/24 Jessica Nelson MD [address] [place] [address] [address] [place] [address] Cardiovascular Disease 04/03/24 documented as of this encounter
--- OUTSIDE RECORDS SUMMARY | 2024-10-22 14:36 | XMS_ITS | Encounter Summary ---
Author Organization [facility] Address [address] [place] [address] Care Team Providers Care Arc Trimmer Name Role Phone Sophia Monroe MD Primary Care Provider Nahum Benavides MD Unavailable Cuba Claire MD Unavailable [phone] Alan Harris MD Unavailable [phone] Jessica Nelson MD Unavailable [phone] Encounter Details Date Type Department Care Team (Late st Contact Info) Description 07/23/2024 Scanned Document [facility] [place] [address] [phone] Kelsi Bonner MD [address] [address] Social History Tobacco Use Types Packs/Day Years [...] Description 11/14/2024 11:30 AM EDT Office Visit [facility] [place] [address] [place] [address] Kelsi Bonner MD 85 [facility] [place] [facility] [address] [place] [address] 01/03/2025 10:00 AM EDT Office Visit [facility] 100 [facility] 101 [place] [address] Sophia Monroe MD 100 [place] [address] documented as of this encounter Visit Diagnoses Not on filedocumented in this encounter Care Teams Arc Trimmer Relationship Specialty Start Date End Date Sophia Monroe MD 100 [place] [address] PCP - General Internal Medicine 01/16/24 Nahum Benavides MD [address] [place] [address] [address] [place] [address] Neurology 01/17/24 Cuba Claire MD 100 [facility] 120 [place] [address] Referring Provider 01/17/24 Alan Harris MD [address] [place] [address] Referring Provider Surgery, Orthopedic 01/17/24 Jessica Nelson MD [address] [place] [address] [place] [address] Cardiovascular Disease 04/03/24 documented as of this encounter
--- OUTSIDE RECORDS SUMMARY | 2024-10-22 14:36 | XMS_ITS | Encounter Summary ---
Author Organization [facility] Address [address] [place] [address] Care Team Providers Care Trans Router Name Role Phone Sophia Monroe MD Primary Care Provider Nahum Benavides MD Unavailable Cuba Claire MD Unavailable [phone] Alan Harris MD Unavailable [phone] Jessica Nelson MD Unavailable [phone] Encounter Details Date Type Department Care Team (Late st Contact Info) Description 08/22/2024 Scanned Document [facility] [place] [address] [phone] Kelsi Bonner MD [address] [address] Social History Tobacco Use Types Packs/Day Years [...] Description 11/14/2024 11:30 AM EDT Office Visit [facility] [place] [address] [place] [address] Kelsi Bonner MD 85 [facility] 9[address] [place] [address] 01/03/2025 10:00 AM EDT Office Visit [facility] 100 [facility] 101 [place] [address] Sophia Monroe MD 100 [place] [address] documented as of this encounter Visit Diagnoses Not on filedocumented in this encounter Care Teams Trans Router Relationship Specialty Start Date End Date Sophia Monroe MD 100 [place] [address] PCP - General Internal Medicine 01/16/24 Nahum Benavides MD [address] [place] [address] [address] [place] [address] Neurology 01/17/24 Cuba Claire MD 100 [facility] 120 [place] [address] Referring Provider 01/17/24 Alan Harris MD [address] [place] [address] Referring Provider Surgery, Orthopedic 01/17/24 Jessica Nelson MD [address] [place] [address] [address] [place] [address] Cardiovascular Disease 04/03/24 documented as of this encounter
== END 2024-10-22 14:26 | disposition home or self-care (01) ==
LOC: CF 14:25
DX: Z13.89 Encounter for screening for other disorder (principal)

== ENCOUNTER 2024-11-02 08:18 | Outpatient (REF) | payer MEDICARE, SELFPAY ==
--- NOTE | ~2024-11-02 | XR_ITS ---
EXAMINATION: XR ELBOW 3 VIEWS RIGHT HISTORY: M25.529 - Pain in unspecified elbow COMPARISON: Comparison is made with an outside study from [facility] dated 10/19/2024. FINDINGS: Three views of the right elbow are submitted. Osseous mineralization is normal. Again seen is a comminuted depressed fracture of the radial head. No additional fracture is seen. There is no dislocation. Rounded calcifications at the lateral aspect of the distal humerus may be ligamentous in nature. The joint spaces are preserved. There is a persistent joint effusion. XR/XR elbow RT min 3V IMPRESSION: Comminuted depressed fracture of the radial head without significant change. Electronically signed by: Alvarado Jon MD 11/02/2024 09:42 AM EDT
== END 2024-11-02 08:19 | disposition home or self-care (01) ==
LOC: HO.HOSX 08:18
PROVIDERS: Visit Provider Physician Assistant
DX: M25.521 Pain in right elbow (principal); S52.121A Displaced fracture of head of right radius, initial encounter for closed fracture
CPT/HCPCS: 73080; 99202

== ENCOUNTER 2024-11-02 08:43 | Outpatient (AMB) | payer MEDICARE, SELFPAY ==
--- OUTSIDE RECORDS SUMMARY | 2024-11-02 08:57 | XMS_ITS | Encounter Summary ---
Author Organization [facility] Address [address] [place] [address] Care Team Providers Care Teachers' Aide Name Role Phone Sophia Monroe MD Primary Care Provider Nahum Benavides MD Unavailable Cuba Claire MD Unavailable [phone] Alan Harris MD Unavailable [phone] Jessica Nelson MD Unavailable [phone] Encounter Details Date Type Department Care Team (Late st Contact Info) Description 05/01/2024 Scanned Document [address] [phone] Primary Care, Scan Social History Tobacco Use [...] Description 11/14/2024 11:30 AM EDT Office Visit [facility] [address] [place] [address] Kelsi Bonner MD [address] [place] [address] [place] [address] 01/03/2025 10:00 AM EDT Office Visit [facility] 100 [facility] [address] [place] [address] Sophia Monroe MD 100 [place] [address] documented as of this encounter Visit Diagnoses Not on filedocumented in this encounter Care Teams Teachers' Aide Relationship Specialty Start Date End Date Sophia Monroe MD 100 [place] [address] PCP - General Internal Medicine 01/16/24 Nahum Benavides MD [address] [place] [address] [address] [place] [address] Neurology 01/17/24 Cuba Claire MD 100 [facility] [address] [place] [address] Referring Provider 01/17/24 Alan Harris MD [address] [address] Referring Provider Surgery, Orthopedic 01/17/24 Jessica Nelson MD [address] [place] [address] [place] [address] Cardiovascular Disease 04/03/24 documented as of this encounter
--- NOTE | 2024-11-02 09:16 | MHC.OFFVIS ---
Vital Signs 11/02/24 09:27 Height 5 ft 7 in Weight 240 lb BMI 37.6 Handedness Right Intake Visit Reasons: FC- Right radial head fx DOI 10/19/24 Intake Note: Hernesto is a 74 year old right hand dominant male who presents today for a evaluation of his right elbow fx, DOI 10/19/24. Patient reports he tripped over a box in the garage, causing him to fall on to his elbow. He states that his pain is stable in the sling, however with movement his pain increases. Patient states that he has a sensation that his elbow is coming place. He finds is painful when he is pronation and supination. His pain does radiate up to his bicep. Denies numbness and tingling. Patient has tried taking Tylenol with mild relief. Allergies metoprolol Allergy (Verified 11/02/24 09:22) Hives bee sting Allergy (Uncoded 11/02/24 09:22) Swelling HPI HPI FC- Right radial head fx DOI 10/19/24: Details: Mr. Toro is a 74-year-old right-hand dominant male who presents to the office today for evaluation of a right radial head fracture that he sustained on 10/19/2024 when he tripped over a box in his garage. He landed directly onto the elbow over the olecranon. He reported to the emergency department where x-rays were obtained and he was found to have a right radial head fracture. He was placed into a sling and instructed to follow up with orthopedics outpatient for further evaluation and treatment. When the patient presents to the office today he reports that he does have pain with motion especially with pronation and supination of the forearm. He denies any numbness or tingling. He has been taking Tylenol with mild relief. [facility] Social History (Updated 11/02/24 @ 09:27 by Desmond Mcclelland) Alcohol intake: never Patient Tobacco Use Status: Never used Tobacco Current occupational status: retired Current occupation: right hand dominant Review of Systems Const All systems reviewed & are unremarkable except as noted in HPI and below Physical Exam Vital Signs: BMI result Body Mass Index 37.6 Const General: cooperative, healthy appearing and no acute distress Resp Effort & Inspection: normal respiratory effort and able to speak in complete sentences Extrem Other: Right elbow lacking roughly 20 degrees of full extension. Able to perform pronation supination passively with pain and no evidence of mechanical blockage. Sensation intact. Assessment & Plan Assessment & Plan (1) Right radial head fracture: Code(s): S52.121A - Displaced fracture of head of right radius, initial encounter for closed fracture Category: Medical Plan Mr. Toro is a 74-year-old right-hand dominant male who presents to the office today for evaluation of a right radial head fracture that he sustained on 10/19/2024 when he tripped over a box in his garage. He landed directly onto the elbow over the olecranon. He reported to the emergency department where x-rays were obtained and he was found to have a right radial head fracture. He was placed into a sling and instructed to follow up with orthopedics outpatient for further evaluation and treatment. When the patient presents to the office today he reports that he does have pain with motion especially with pronation and supination of the forearm. He denies any numbness or tingling. He has been taking Tylenol with mild relief. On the office today Dr. Acevedo was available to see the patient with me in a collaborative treatment plan was created. The patient was educated that he should not be performing any heavy lifting activities. Bfako-vs-nwgevj exercises were demonstrated to the patient by Dr. Acevedo in the office today for gentle flexion, extension, pronation supination. He should perform these exercises at home. He will follow up in 4 weeks with repeat x-rays, sooner if needed. X-rays of the right elbow which were obtained while in the office today and were reviewed by me, Elayne Marcos PA-C, revealed comminuted depressed radial head fracture. Orders: Orders XR elbow RT min 3V Today M25.529 - Pain in unspecified elbow Coding Level of Care Code New Pt Level 4 (48477) Diagnoses Right radial head fracture S52.121A
[2024-11-02 09:27] VITALS: BMI 37.6
== END 2024-11-02 09:56 | disposition home or self-care (01) ==
LOC: HO.HOS 08:43
PROVIDERS: PCP Internal Medicine; Visit Provider Physician Assistant
DX: S52.121A Displaced fracture of head of right radius, initial encounter for closed fracture (principal)
CPT/HCPCS: 99203

== ENCOUNTER → 2024-11-02 08:49 | Outpatient (BNV) | payer MEDICARE, SELFPAY | PROVIDERS: Visit Provider Radiology Diagnostic Radiology | DX: M84.433A Pathological fracture, right radius, initial encounter for fracture (principal) | CPT/HCPCS: 73080 ==

== ENCOUNTER 2024-11-30 08:37 | Outpatient (REF) | payer MEDICARE, SELFPAY ==
--- NOTE | ~2024-11-30 | XR_ITS ---
EXAMINATION: XR ELBOW, RIGHT CLINICAL INFORMATION: M25.529 - Pain in unspecified elbow COMPARISON: November 02, 2024 demonstrated comminuted radial head fracture. TECHNIQUE: AP, lateral, and oblique views of the right elbow. FINDINGS: Persistent lucency and deformity of the radial aspect of the radial head. No acute cortical disruption. No gross joint effusion. No lytic or blastic lesions. XR/XR elbow RT min 3V IMPRESSION: Nonunion displaced fracture, radial head Electronically signed by: Jorge Traore MD 11/30/2024 10:46 AM EDT
--- OUTSIDE RECORDS SUMMARY | 2024-12-03 08:53 | XMS_ITS | Encounter Summary ---
Author Organization [facility] Address [address] [place] [address] Care Team Providers Care Pit Clerk Name Role Phone Sophia Monroe MD Primary Care Provider Nahum Benavides MD Unavailable uCba Claire MD Unavailable [phone] Alan Harris MD Unavailable [phone] Jessica Nelson MD Unavailable [phone] Sophia Monroe MD Unavailable [phone] Encounter Details Date Type Department Care Team (Late st Contact Info) Description 05/01/2024 Scanned Document [address] [phone] Primary Care, Scan Social History [...] Description 01/03/2025 10:00 AM EDT Office Visit [address] [phone] Sophia Monroe MD [address] [place] [address] documented as of this encounter Visit Diagnoses Not on filedocumented in this encounter Care Teams Pit Clerk Relationship Specialty Start Date End Date Sophia Monroe MD [address] [place] [address] PCP - General Internal Medicine 01/16/24 Sophia Monroe MD [address] [place] [address] PCP - MSSP Attributed 06/13/24 Nahum Benavides MD [address] [place] [address] [address] [place] [address] Neurology 01/17/24 Cuba Claire MD 100 [facility] 120 [place] [address] Referring Provider 01/17/24 Alan Harris MD [address] [address] Referring Provider Surgery, Orthopedic 01/17/24 Jessica Nelson MD [address] [place] [address] Second Floor [facility] [place] [address] Cardiovascular Disease 04/03/24 documented as of this encounter
== END 2024-11-30 08:38 | disposition home or self-care (01) ==
LOC: HO.HOSX 08:37
PROVIDERS: Visit Provider Physician Assistant
DX: S52.121A Displaced fracture of head of right radius, initial encounter for closed fracture (principal)
CPT/HCPCS: 73080; 99212

== ENCOUNTER 2024-11-30 10:32 | Outpatient (AMB) | payer MEDICARE, SELFPAY ==
--- NOTE | 2024-11-30 10:40 | A.OFFVIS_ITS ---
Vital Signs 11/30/24 10:42 Height 5 ft 7 in Weight 240 lb BMI 37.6 Intake Visit Reasons: OV- Right radial head fx DOI 10/19/24-W/XR Intake Note: Hernesto is a 74 year old right hand dominant male who presents today for a follow up of his right radial head fx, DOI 10/19/24. At his last visit range of motion exercises were demonstrated to the patient by Dr. Acevedo in the office for gentle flexion, extension, pronation supination. Patient reports he is feeling better and he did some at home exercies. Allergies metoprolol Allergy (Verified 11/30/24 10:42) Hives bee sting Allergy (Uncoded 11/02/24 09:22) Swelling HPI HPI OV- Right radial head fx DOI 10/19/24-W/XR: Details: Mr. Muna castrejon is a 74-year-old right-hand dominant male who presents to the office today for routine follow-up status post right radial head fracture that occurred on 10/19/2024. Patient states overall he is doing very well. It does appear that he has been perhaps overdoing it with activities. He reports no pain at this time. [facility] Social History Alcohol intake: never Patient Tobacco Use Status: Never used Tobacco Current occupational status: retired Current occupation: right hand dominant Review of Systems Const All systems reviewed & are unremarkable except as noted in HPI and below Physical Exam Vital Signs: BMI result Body Mass Index 37.6 Const General: cooperative, healthy appearing and no acute distress Resp Effort & Inspection: normal respiratory effort and able to speak in complete sentences Extrem Other: Right elbow lacking roughly 10 degrees of full extension. Able to perform pronation supination to end range with no pain and no evidence of mechanical blockage. Sensation intact. Assessment & Plan Assessment & Plan (1) Right radial head fracture: Code(s): S52.121A - Displaced fracture of head of right radius, initial encounter for closed fracture Category: Medical Plan Mr. Muna castrejon is a 74-year-old right-hand dominant male who presents to the office today for routine follow-up status post right radial head fracture that occurred on 10/19/2024. Patient states overall he is doing very well. It does appear that he has been perhaps overdoing it with activities. He reports no pain at this time. While in the office today, I would like to have a bit more healing present on the x-rays. I believe the patient is likely overdoing it with activities slowing the progress of healing. I discussed with the patient no lifting pushing pulling more than a coffee cup or a cell phone. He will continue these restrictions for the next 4 weeks. I would like to see him back in the office with repeat x-rays in 4 weeks, sooner if needed. X-rays of the right elbow which were obtained while in the office today and were reviewed by me, Elayne Marcos PA-C, revealed radial head fracture. Orders: Orders XR elbow RT min 3V Today M25.529 - Pain in unspecified elbow Coding Level of Care Code Global (87942) Diagnoses Right radial head fracture S52.121A
[2024-11-30 10:42] VITALS: BMI 37.6
--- OUTSIDE RECORDS SUMMARY | 2024-11-30 10:56 | XMS_ITS | Encounter Summary ---
Author Organization [facility] Address [address] [place] [address] Care Team Providers Care Signal And Communications Maintainer Name Role Phone Sophia Monroe MD Primary Care Provider Nahum Benavides MD Unavailable Cuba Claire MD Unavailable [phone] Alan Harris MD Unavailable [phone] Jessica Nelson MD Unavailable [phone] Sophia Monroe MD Unavailable [phone] Encounter Details Date Type Department Care Team (Late st Contact Info) Description 05/01/2024 Scanned Document [address] [phone] Primary Care, Scan Social History Tobacco Use [...] Care Team (Late st Contact Info) Description 01/03/2025 10:00 AM EDT Office Visit [address] [phone] Sophia Monroe MD [address] [place] [address] documented as of this encounter Visit Diagnoses Not on filedocumented in this encounter Care Teams Signal And Communications Maintainer Relationship Specialty Start Date End Date Sophia Monroe MD [address] [place] [address] PCP - General Internal Medicine 01/16/24 Sophia Monroe MD [address] [place] [address] PCP - MSSP Attributed 06/13/24 Nahum Benavides MD [address] [place] [address] [address] [place] [address] Neurology 01/17/24 Cuba Claire MD 100 [facility] 120 [place] [address] Referring Provider 01/17/24 Alan Harris MD [address] [address] Referring Provider Surgery, Orthopedic 01/17/24 Jessica Nelson MD [address] [place] [address] Second Floor [facility] [place] [address] Cardiovascular Disease 04/03/24 documented as of this encounter
== END 2024-11-30 10:54 | disposition home or self-care (01) ==
LOC: HO.HOS 10:32
PROVIDERS: PCP Internal Medicine; Visit Provider Physician Assistant
DX: S52.121A Displaced fracture of head of right radius, initial encounter for closed fracture (principal)
CPT/HCPCS: 99213

== ENCOUNTER → 2024-11-30 10:33 | Outpatient (BNV) | payer MEDICARE, SELFPAY | PROVIDERS: Visit Provider Radiology Diagnostic Radiology | DX: S52.121K Displaced fracture of head of right radius, subsequent encounter for closed fracture with nonunion (principal) | CPT/HCPCS: 73080 ==

== ENCOUNTER 2024-12-25 08:31 | Outpatient (AMB) | payer MEDICARE, SELFPAY ==
[2024-12-25 08:36] VITALS: BMI 37.6
--- NOTE | 2024-12-25 08:36 | MHC.OFFVIS ---
Vital Signs 12/25/24 08:36 Height 5 ft 7 in Weight 240 lb BMI 37.6 Intake Visit Reasons: OV- Right radial head fx DOI 10/19/24-W/XR Intake Note: Hernesto is a 74 year old right hand dominant male who presents today for a follow up s/p Right Radial Head Fracture 10/19/24. At his last visit we discussed that he is likely overdoing it with activities and reviewed that he is to do no lifting, pushing, or pulling of anything heavier than a cellphone. Patient reports he is doing well. He states no pain at the moment and it feels better. Allergies metoprolol Allergy (Verified 12/25/24 08:36) Hives bee sting Allergy (Uncoded 12/25/24 08:36) Swelling HPI HPI OV- Right radial head fx DOI 10/19/24-W/XR: Details: Mr. Toro is a 74-year-old right-hand dominant male who presents to the office today for follow-up on a right radial head fracture that he sustained on 10/19/2024. At his last visit the patient was demonstrated exercises to work on range of motion by Dr. Acevedo. He also instructed the patient that he was perhaps performing too much activity. Patient has been performing the home exercises. He denies any pain at today's visit. Occasionally he will feel a small twinge in the area but overall is doing very well. [facility] Social History Alcohol intake: never Patient Tobacco Use Status: Never used Tobacco Current occupational status: retired Current occupation: right hand dominant Review of Systems Const All systems reviewed & are unremarkable except as noted in HPI and below Physical Exam Vital Signs: BMI result Body Mass Index 37.6 Const General: cooperative, healthy appearing and no acute distress Resp Effort & Inspection: normal respiratory effort and able to speak in complete sentences Extrem Other: Right elbow lacking roughly 10 degrees of full extension. Able to perform full flexion. Able to perform pronation supination to end range with no pain and no evidence of mechanical blockage. Sensation intact. Assessment & Plan Assessment & Plan (1) Right radial head fracture: Code(s): S52.121A - Displaced fracture of head of right radius, initial encounter for closed fracture Category: Medical Plan Mr. Toro is a 74-year-old right-hand dominant male who presents to the office today for follow-up on a right radial head fracture that he sustained on 10/19/2024. At his last visit the patient was demonstrated exercises to work on range of motion by Dr. Acevedo. He also instructed the patient that he was perhaps performing too much activity. Patient has been performing the home exercises. He denies any pain at today's visit. Occasionally he will feel a small twinge in the area but overall is doing very well. While in the office today, we discussed that he can start to begin resuming normal activities to tolerance. I did caution the patient that if he should have any pain during activities he needs to stop. I also recommended that the patient begin resuming normal activities slowly and then progressively increase based off of pain. Although the patient is not experiencing any pain on today's visit or difficulties with motion other than the expected lack of 10 degrees extension I did caution the patient on his return to activities as he has overdone it in the past. Should the patient have continued pain or difficulty with right elbow function he will follow up with orthopedics otherwise he will follow up PRN. X-rays of the right elbow which were obtained while in the office today and were reviewed by me, Elayne Marcos PA-C, revealed healed displaced radial head fracture. Orders: Orders XR elbow RT min 3V Today M25.529 - Pain in unspecified elbow Coding Level of Care Code Global (57386) Diagnoses Right radial head fracture S52.121A
--- OUTSIDE RECORDS SUMMARY | 2024-12-25 08:36 | XMS_ITS | Clinical Summary ---
Author Organization [facility] Address [address] [place] [address] Care Team Providers Care Real Estate Professional Name Role Phone Marilu Quesada Primary Care Provider [phone] Surgical History Surgery Date Site/Laterality Comments CHOLECYSTECTOMY PROCEDURE:CHOLECYSTECTOMY SHOULDER SURGERY Right PROCEDURE:SHOULDER SURGERY;COMMENT:2015 CARDIAC CATHETERIZATION 2013 PROCEDURE:CARDIAC CATHETERIZATION COLONOSCOPY PROCEDURE:COLONOSCOPY TOTAL HIP ARTHROPLASTY 12/11/2020 Right PROCEDURE:TOTAL HIP ARTHROPLASTY;COMMENT:Procedur e: REPLACEMENT TOTAL HIP; Surgeon: Gerson Schwartz MD; Location: [facility] ([facility]); Service: Orthopedics; Laterality: Right; TOTAL HIP ARTHROPLASTY 04/02/2021 Left PROCEDURE:TOTAL HIP ARTHROPLASTY;COMMENT:Procedur e: REPLACEMENT TOTAL HIP; Surgeon: Gerson Schwartz MD; Location: [facility] ([facility]); Service: Orthopedics; Laterality: Left; REVISION TOTAL HIP CUP AND/O R STEM 04/11/2021 Left PROCEDURE:REVISION TOTAL HIP CUP AND/OR STEM;COMMENT:Procedure: REVISION TOTAL HIP COMPONENTS - PREIPROSTHETIC FRACTURE; Surgeon: Louie Benítez MD; Location: [facility] ([facility]); Service: Orthopedics; Laterality: Left; TONSILLECTOMY PROCEDURE:TONSILLECTOMY;COMME NT:as a child REVISION TOTAL HIP CUP AND/O R STEM 07/08/2022 Left PROCEDURE:REVISION TOTAL HIP CUP AND/OR STEM;COMMENT:Procedure: REVISION TOTAL HIP COMPONENTS; Surgeon: Louie Benítez MD; Location: [facility] ([facility]); Service: Orthopedics; Laterality: Left; Medical History Medical History Date Comments Arterial stent thrombosis ([facility] V24) 2013 DX:Arterial stent thrombosis (HCC);COMMENT:[facility] no stent thrombosis after this procedure Hypertension DX:Hypertension Lyme disease DX:Lyme disease Coronary artery disease DX:Coron sri artery disease;COMMENT:2013 Multiple sclerosis ([facility] V24, [facility] V28) DX:Multiple sclerosis (HCC) Gastroesophageal reflux dise ase without esophagitis DX:Gastroesophageal reflux d isease without esophagitis Hyperlipidemia DX:Hyperlipidemi a Osteoarthritis DX:Osteoarthriti s BPH (benign prostatic hyperplasia) DX:BPH (benign prostatic hyperplasia) Depression DX:Depression Visual impairment DX:Visual impa irment;COMMENT:reading 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;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 Family History Medical History Relation Name Comments Heart attack Father Heart failure Father Hypertension Father Arthritis Mother Lupus Sister 2 X1 Multiple sclerosis Sister 2 X1 Relation Name Status Comments Father (Age 91) HEART FAIL URE Mother (Age 95) NATURAL- S /P FALL ?STAPH INFECTION Sister 2 Alive Social History Tobacco Use Types Packs/Day Years Used Date Smoking Tobacco: Never Smokeless Tobacco: Never Alcohol Use Standard Drinks/Week Comments No 0 (1 standard drink = 0.6 oz pur e alcohol) Sex and Gender Information Value Date Recorded Sex Assigned at Not on file Legal Sex Male 1:54 AM EST Gender Identity Not on file Sexual Orientation Not on file Obstetrics History Last Filed Vital Signs Vital Sign Reading Time Taken Comments Blood Pressure 170/100 06/16/2022 9:46 AM EST Lef t arm Pulse 66 06/16/2022 9:11 AM EST Temperature - - Respiratory Rate - - Oxygen Saturation - - Inhaled Oxygen Concentration - - Weight 110 kg (242 lb) 06/16/2022 9:11 AM EST Height 168.4 cm (5' 6.3 ) 06/16/2022 9:11 AM EST Body Mass Index 38.71 06/16/2022 9:11 AM EST Plan of Treatment Health Maintenance Due Date Last Done Comments DTaP,Tdap,and Td Vaccines (1 - Tdap) 1970 Pneumococcal Vaccine: 50+ Years (1 of 1 - PCV) 2001 Zoster Vaccines (1 of 2) 2001 RSV Immunization Adult Patients (1 - Risk 60-74 years 1-dose series) 2011 Abdominal Aortic Aneurysm (AAA) Screen 05/16/2022 Cholesterol Screening (Lipid Panel) 05/16/2022 Colorectal Cancer Screening: Colonoscopy 05/16/2022 Depression Screening 05/16/2022 Falls Risk Assessment 05/16/2022 Hepatitis C Screening 05/16/2022 Social Influencers of Health Screening 05/16/2022 COVID-19 Vaccine ( season) 2024 02/26/2022, 09/17/2021, 10/08/2020, Additional history exists Influenza Vaccine (#1) 2025 HIB Vaccines Aged Out No longer eligi ble based on patient's age to complete this topic HPV Vaccines Aged Out No longer eligi ble based on patient's age to complete this topic Hepatitis A Vaccines Aged Out No long er eligible based on patient's age to complete this topic Hepatitis B Vaccines Aged Out No long er eligible based on patient's age to complete this topic IPV Vaccines Aged Out No longer eligi ble based on patient's age to complete this topic MMR Vaccines Aged Out No longer eligi ble based on patient's age to complete this topic Meningococcal ACWY Vaccine Aged Out N o longer eligible based on patient's age to complete this topic Meningococcal B Vaccine Aged Out No l onger eligible based on patient's age to complete this topic RSV Immunization Patients Under 20 months Aged Out No longer eligible based on patient's age to complete this topic Varicella Vaccines Aged Out No longer eligible based on patient's age to complete this topic Medical Devices Implanted Type Area Cutting And Boning Supervisor Device Identifier Shelf Expiration Date Model / Serial / Lot Lp Hex Screw 6.5x30mm Stry-Howm [id number] Implanted:Qty: 1 on 12/11/2020 by Gerson Schwartz MD Right: Hip [employer] 05/27/2025 6606-1743 / / [id number] Tritanium Cluster Hole Shell 58mm Stry-How [id number] Implanted:Qty: 1 on 12/11/2020 by Gerson Schwartz MD Right: Hip [employer] 07/09/2025 702-04-58F / / [id number] Lp Hex Screw 6.5x25mm Stry-How [id number] 58 Implanted:Qty: 1 on 12/11/2020 by Gerson Schwartz MD Right: Hip [employer] 08/29/2025 3517-8611 / / [id number] Lp Hex Screw 6.5x25mm Stry-Howm [id number] 58 Implanted:Qty: 1 on 12/11/2020 by Gerson Schwartz MD Right: Hip [employer] 08/29/2025 9194-1626 / / [id number] Hip Insrt Poly X3 10deg 36mm Stry-Howm [id number] 348 Implanted:Qty: 1 on 12/11/2020 by Gerson Schwartz MD Right: Hip [employer] 03/25/2025 623-10-36F / / [id number] Stem Hip Neck Angle 127 Degree Accolade Ii Sz6 - [id number] Implanted:Qty: 1 on 12/11/2020 by Gerson Schwartz MD Right: Hip [employer] 10/20/20259140-6260 / / [id number] Hip Head Delta Biolox 36mm -5 Stry-Howm [id number] 190 Implanted:Qty: 1 on 12/11/2020 by Gerson Schwartz MD Right: Hip [employer] 09/19/2025 6570-0-036 / / [id number] Lp Hex Screw 6.5x20mm Stry-Howm [id number] 57 Implanted:Qty: 1 on 04/02/2021 by Gerson Schwartz MD Left: Hip [employer] [id number] 10/15/2025 0292-9750 / / [id number] Hip Stem Accolade Ii Sz6 Stry-Howm [id number] 19 Implanted:Qty: 1 on 04/02/2021 by Gerson Schwartz MD Left: Hip [employer] [id number] 01/15/20266311-0584 / / [id number] Tritanium Cluster Hole Shell 56mm Stry-Howm [id number] Implanted:Qty: 1 on 04/02/2021 by Gerson Schwartz MD Left: Hip [employer] [id number] 11/20/2025 702-04-56F / / [id number] Lp Hex Screw 6.5x30mm Stry-How [id number] 78 Implanted:Qty: 1 on 04/02/2021 by Gerson Schwartz MD Left: Hip [employer] [id number] 11/03/2025 3686-2926 / / [id number] Hip Cabl Coblt Chrm 2mm W Clmp Smn-Orth 03 Implanted:Qty: 1 on 04/11/2021 by Louie Benítez MD Left: Hip [employer] 09/30/20306520-9118 / / [id number] Hip Cabl Coblt Chrm 2mm W Clmp Smn-Orth 03 Implanted:Qty: 1 on 04/11/2021 by Louie Benítez MD Left: Hip [employer] 05/15/2030 3596-4929 / / [id number] Hip Cabl Coblt Chrm 2mm W Clmp Smn-Orth 03 Implanted:Qty: 1 on 04/11/2021 by Louie Benítez MD Left: Hip [employer] 01/03/20314443-0812 / / [id number] Hip Cabl Coblt Chrm 2mm W Clmp Smn-Orth 03 Implanted:Qty: 1 on 04/11/2021 by Louie Benítez MD Left: Hip [employer] 01/03/20315836-0540 / / [id number] Slvls Monolithic Rev Awee250cw Smn-Orth [id number] 9 Implanted:Qty: 1 on 04/11/2021 by Louie Benítez MD Left: Hip [employer] 08/27/2028 [id number] / / [id number] Hip Hd Fem 12 14 36mm +4mm Smn-Orth [id number] 55 Implanted:Qty: 1 on 04/11/2021 by Louie Benítez MD Left: Hip [employer] 02/07/2031 7230-1107 / / [id number] Hip Hd Fem 12 14 Tapr 28mm +8 Smn-Orth [id number] 37 Implanted:Qty: 1 on 07/08/2022 by Louie Benítez MD Left: Hip [employer] 07/27/2031 5774-2401 / / [id number] 28mm Id, 46mm Od Dual Mobility Insert Xlpe Implanted:Qty: 1 on 07/08/2022 Left: Hip [employer] 11/25/2030 [id number] / / [id number] Hip Insrt Mod Dl Mobility 46mm [facility] [id number] Implanted:Qty: 1 on 07/08/2022 by Louie Benítez MD [employer] 626-00-46F / / Care Teams Real Estate Professional Relationship Specialty Start Date End Date Marilu Quesada PA [address] [place] [address] PCP - General 07/08/22
--- OUTSIDE RECORDS SUMMARY | 2024-12-25 08:36 | XMS_ITS | Encounter Summary ---
Author Organization [facility] Address [address] [place] [address] Care Team Providers Care Acute Care Registered Nurse Name Role Phone Sophia Monroe MD Primary Care Provider Nahum Benavides MD Unavailable Cuba Claire MD Unavailable [phone] Alan Harris MD Unavailable [phone] Jessica Nelson MD Unavailable [phone] Sophia Monroe MD Unavailable [phone] Encounter Details Date Type Department Care Team (Late st Contact Info) Description 05/01/2024 Scanned Document [address] [phone] Primary Care, Scan Social History [...] Description 01/03/2025 10:00 AM EDT Office Visit [address] [phone] Sophia Monroe MD [address] [place] [address] documented as of this encounter Visit Diagnoses Not on filedocumented in this encounter Care Teams Acute Care Registered Nurse Relationship Specialty Start Date End Date Sophia Monroe MD [address] [place] [address] PCP - General Internal Medicine 01/16/24 Sophia Monroe MD [address] [place] [address] PCP - MSSP Attributed 06/13/24 Nahum Benavides MD [address] [place] [address] [address] [place] [address] Neurology 01/17/24 Cuba Claire MD 100 [facility] 120 [place] [address] Referring Provider 01/17/24 Alan Harris MD [address] [address] Referring Provider Surgery, Orthopedic 01/17/24 Jessica Nelson MD [address] [place] [address] Second Floor [facility] [place] [place] [address] Cardiovascular Disease 04/03/24 documented as of this encounter
--- OUTSIDE RECORDS SUMMARY | 2024-12-25 08:37 | XMS_ITS | Data Portability ---
Author Organization [place] - [facility], [facility] - INPATIENT Address [address] [place] [address] Care Team Providers Care Radiology Technologist Name Role Phone GIUSEPPE OWUSU Primary Care [...] with this plan. All questions were answered. [email or web address] Not available 06/14/2023 07:22:14 06/22/2023 06/22/2023 ASSESSMENT: Mr. Morejon, a 73-year-old male, is showing signs of [...] available 06/22/2023 12:57:52 09/21/2023 09/21/2023 ASSESSMENT: Mr. Morejon, a 73-year-old male, is doing well seven [...] can start playing golf, starting with the otr driver in the car and high number [...] Organization Details Last Modified Time Details Appointments Hip Annual Post-Op 30 min 2024 01:00P Tres HARRIS MD Not available Not available Not available Lab None recorded. Referral physical therapist referral 2022 023 [facility], [address] [facility], [place], [address], 05/24/2023 15:28:53 Procedures None recorded. Surgeries None recorded. Imaging None recorded. Medication Orders celecoxib 200 mg capsule 2024 025 [email or web address] [id number], [address] [place], [address], 10/16/2024 13:19:24 amoxicill in 500 mg capsule 2023 024 SCOTT [id number], [address] [place], [address], 09/21/2023 13:30:35 Patient TargetsNo targets recorded. Patient InstructionsNo instructions recorded. 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 On: Jun 22 2023 2:56P [email or web address] [facility] [address] [place], [address], 06/22/2023 15:35:02 09/21/19 24 09/21/2023 xr hip left 2-3vw _W or wo pelvi s Fin al Report EXAM#: [id number] PROCED URE: DXR 0174 XR HIP LEFT 2-3vw_ w or wo Pelvis Sep 21 2023 1:15PM CLINIC AL INDICA TION: PAIN IN LEFT HIP INDICA TION: PAIN IN LEFT HIP Findin gs: There is a left hip arthro plasty in place. There is no eviden ce of hardwa re compli cation or malali gnment . No change in alignm ent from 024. Incide ntal right THR.. Sacroi liac joints are within normal limits . No osseou s lesion is identi fied and no soft tissue abnorm ality is seen. NUMBER OF IMAGES : 2 Report ed by : YULIET BAEZA M.D. On: Sep 21 2023 1:37P Signed by: YULIET BAEZA M.D. On: Sep 21 2023 1:37P [email or web address] [facility] [address] [facility], [place], [address], 09/21/2023 15:23:48 09/27/19 25 09/26/2024 xr hip 2-3 vw left Sweta Hubbub Pt Name : MASSIEL MOREJON AM 1 - Date: 1949 Sex: M Locati on : [facility] DXR[facility] Visit: [id number] Admit Date: 2024 Date of Servic e: 2024 Exam : XR HIP 2-3 VW LEFT Status : Final Order MD : XOCHILT ROQUE Tel#:( [phone] CC Provid er:, ------ ------ ------ ------ ------ ------ ------ ------ ------ ------ ------ ------ ------ - Compar alie: 024 and 024 FINDIN GS: Left hip total arthro plasty [...] RIOS 12:14: 02 Workst ation: [id number] KH2 [email or web address] [facility] [address] [facility] [address], [place], [address], 09/26/2024 15:57:15 Result Notes None recorded. Procedures Surgical History Date Name Laterality Status Provider Name and Address Organization Details Recorded Time 02/23/20 23 Orthopaedic Surgery completed Mina Ramirez MA [facility] 04/20/2023 13:10:46 07/08/19 23 Orthopaedic Surgery completed Mina Ramirez [facility] 04/20/2023 13:10:38 04/09/20 21 Orthopaedic Surgery completed Mina Ramirez [facility] 04/20/2023 13:10:26 04/02/20 21 Other completed Mina Ramirez [facility] 04/20/2023 13:10:06 12/12/19 21 Orthopaedic Surgery completed Mina Ramirez [facility] 04/20/2023 13:10:52 06/13/19 15 Orthopaedic Surgery completed Marichuy Dye MA [facility] 11/17/2022 12:04:00 06/13/19 14 placement of stent in pulmonary artery completed Marichuy Dye MA [facility] 11/17/2022 12:03:42 cholecystectomy completed Marichuy Dye MA [facility] 11/17/2022 12:04:14 Imaging Results None recorded. Procedure Notes None recorded. Medical Equipment None Reported. Allergies Allergen ID Allergen Name Allergen Category Reaction Reaction Severity Criticality Documentation Date Start Date Code Code System Note Provider Name and Address Organization Details Recorded Time 121279 metoprolo l Not available Not available Not available Not available 11/17/2022 6918 RxNorm Marichuy jaime [facility] 3 12:00:18 971264 honey bee venom medicatio n Not available Not available Not available 11/17/2022 95036 7 RxNorm Marichuy jaime [facility] 3 12:00:24 Medications Name Sig Start Date Stop Date Status Note LastModified by Organization Details LastModified Time celecoxib 200 mg capsule TAKE 1 CAPSULE BY MOUTH EVERY DAY active Not Available Not Available No t Available amoxicillin 500 mg capsule 4 tablets 1 [...] Details Last Updated DateTime 06/22/2023 170.18 cm Paulaernestine Brennerrenard [facility] 06/22/2023 12:29:16 Date Recorded Body height Body mass index (BMI) Body weight Provider Name and Address Organization Details Last Updated DateTime 09/21/2023 170.18 cm 37.6 kg/m2 651144.17 g Harmony Herrera [facility] 09/21/2023 13:08:15 Date Recorded Body height Body mass index (BMI) Body weight Provider Name and Address Organization Details Last Updated DateTime 04/20/2023 170.18 cm 37.6 kg/m2 995594.17 g Mina Ramirez [facility] 04/20/2023 13:09:38 Date Recorded Body height Body mass index (BMI) Body weight Provider Name and Address Organization Details Last Updated DateTime 05/18/2023 170.18 cm 37.6 kg/m2 024026.17 g Mina Ramirez [facility] 05/18/2023 13:58:04 Social History None recorded. Functional Status Question Answer Note LastModified by Organizat ion Details LastModified Time What is your level of alcohol consumption? None [email or web address] Information not available 11/17/2022 Do you or have you ever used smokeless tobacco? Never used smokeless tobacco [email or web address] Information not available 11/17/2022 Are you currently employed? No [email or web address] Information not available 11/17/2022 What is your occupation? Retired [email or web address] Information not available 11/17/2022 Do you or have you ever used e-cigarettes or vape? Never used electronic cigarettes [email or web address] Information not available 11/17/2022 Mental Status None recorded. Family History Relationship Description Onset Age of this Age Resolved Age Notes LastModified by Organization Details LastModified Time Father No current problems or disability [email or web address] Not available 12:02:57 Mother No current problems or disability [email or web address] Not available 12:02:57 Medical History Condition Response Heart Problems Y High Blood Pressure Y Any Other Significant Medical Issues Y Angina, Heart Failure or Attack Y Past Encounters Encounter ID Performer Location Encounter Start Date Encounter Closed Date Diagnosis/Indication Diagnosis SNOMED-CT Code Diagnosis ICD10 Code Diagnosis Note [id number] CHAYO HARRIS MD [facility] am Office [address] [facility] [place] [address] 11/17/2022 10:28:04 11/17/2022 12:37:58 Instability of left hip joint 609915494 M25.430 [id number] CHAYO HARRIS MD [facility] am Office [address] [facility] [place] [address] 12/01/2022 09:55:04 12/08/2022 12:23:15 [id number] MAYELA OCONNELL [facility] am Office [address] [place] [address] 03/23/2023 09:17:21 03/23/2023 12:31:58 Instability of left hip joint 371930985 M25.161 [id number] MAYELA OCONNELL [facility] am Office [address] [place] [address] 04/20/2023 12:37:15 04/20/2023 14:41:00 Instability of left hip joint 743136159 M25.220 [id number] MAYELA OCONNELL [facility] am Office [address] [place] [address] 05/18/2023 12:30:16 05/20/2023 12:40:06 Instability of left hip joint 417653648 M25.650 [id number] CHAYO HARRIS MD [facility] am Office [address] [place] [address] 06/22/2023 11:29:21 06/22/2023 17:11:46 Recurrent dislocation of hip 865201519 M24.206 [id number] CHAYO HARRIS MD [facility] am Office [address] [place] [address] 09/21/2023 11:45:03 09/21/2023 13:39:54 Instability of left hip joint 799740420 M25.326 [id number] MAYELA Oconnell [facility] [address] [place] [address] 09/26/2024 11:59:28 09/26/2024 13:53:20 Pain of left hip joint 0452004278 29482 M25.552 Health Concerns Section Related Observation LastModified by Organization Detai ls LastModified Time None Recorded Concern Status LastModified by Organization Details LastModified Time None Recorded Advance Directives Directive None Recorded Payers Insurance Date Sequence Insurance Name Policy Number Policy Sung Covered Member ID Sung Member ID Guarantor Name 09/21/2024 1 [place] [employer] Hernesto Morejon [id number] Hernesto Morejon 10/30/2024 2 [place] [id number] Hernesto Morejon [id number] Hernesto Morejon 09/23/2024 [employer] - SPECIALITY CLAIMS (MEDICARE DME REGION A) Hernesto Morejon [id number] Hernesto Morejon Notes Date Note Type Note Provider Name and Address Organization Details Recorded Time 04/20/2023 text/html William presents to [facility] for follow-up regarding his left hip. He is status post left LEELEE revision on 02/22/2023. He is overall doing very well. He has been ambulating at full weightbearing with a walker and knee immobilizer. He was working with in-home PT focusing on knee range of motion. Reports minimal pain. MAYELA OCONNELL [address] [place] [address], [phone], [facility] 04/20/2023 14:47:05 05/18/2023 text/html William presents to [facility] for follow-up regarding his left hip. He is status post left LEELEE revision on 02/22/2023. He is overall doing very well. Reports minimal pain. He has ambulating at full WB and modifying his activities. Overall pleased with his progress. MAYELA OCONNELL [address] [place] [address], [phone], [facility] 06/14/2023 07:22:18 06/22/2023 text/html Mr. Morejon is a 73-year-old male who presents to [...] before the current surgery. CHAYO HARRIS MD [address] [place] [address], [phone], [facility] 06/24/2023 13:39:27 09/21/2023 text/html Mr. Morejon is a 73-year-old male who presents to [...] to four weeks ago. CHAYO HARRIS MD [address] [place], [address], [facility] 09/28/2023 08:24:54 09/26/2024 text/html Hernesto Morejon i s a 74-year-old male who presents [...] only takes it at night. MAYELA Oconnell [address] [place] [address], [phone], [facility] 10/16/2024 13:22:08
--- OUTSIDE RECORDS SUMMARY | 2024-12-25 08:37 | XMS_ITS | Clinical Summary ---
Author Organization [facility] Address [address] [place] [address] Care Team Providers Care Stereotype Molder Name Role Phone Marilu Quesada PA-C Primary Care Provider Allergies Active Allergy Reactions Criticality Noted Date Comments Bee Sting Other (See Comments) High 07/28/2021 FACIAL SWELLING, LOCALIZED SWELLING Bee Venom Swelling Medium 12/03/2020 LOCALIZED Metoprolol Hives Low 11/14/2020 Medications Medication Sig Dispensed Refills Start Date End Date Status atenolol (TENORMIN) tablet 25 mg Take 1 tablet (25 mg total) by mouth daily. 5 04/07/2017 Active fenofibrate (TRICOR) tablet 48 mg Take 1 tablet (48 mg total) by mouth daily. 0 04/10/2017 Active FLUoxetine (PROZAC) 10 MG tablet Take 2 tablets (20 mg total) by mouth daily. 5 04/07/2017 Active Aubagio 14 MG TABS Take 14 mg by mouth every evening. 0 08/25/2020 Active Multiple Vitamin (Multivitamin Adult) TABS Take 1 tablet by mouth daily. 0 Active Cholecalciferol (Vitamin D) 50 MCG (2000 UT) CAPS Take 1 caplet by mouth 2 (two) times a day. 0 Active atorvastatin (LIPITOR) tablet 80 mg Take 1 tablet (80 mg total) by mouth daily. 0 Active omeprazole (PriLOSEC) 20 MG capsule Take 1 capsule (20 mg total) by mouth daily. 0 Active acetaminophen (TYLENOL) 500 MG tablet Take 2 tablets (1,000 mg total) by mouth every 8 (eight) hours as needed. 30 tablet 0 04/03/2021 Active amoxicillin (AMOXIL) 500 MG capsule Take 4 tablets one hour prior to dental procedure 4 capsule 0 08/27/2021 Active albuterol 108 (90 Base) MCG/ACT inhaler 2 puffs every 4 (four) hours as needed for wheezing. 0 05/15/2022 Active amLODIPine (NORVASC) tablet 10 mgIndications:Hyperten kirill Take 1 tablet (10 mg total) by mouth daily. 0 07/01/2022 Active meloxicam (MOBIC) 7.5 MG tablet Take 1 tablet (7.5 mg total) by mouth daily. 15 tablet 0 07/09/2022 Active methocarbamol (ROBAXIN) 750 MG tablet Take 1 tablet (750 mg total) by mouth every 6 (six) hours as needed. 30 tablet 0 07/09/2022 Active oxyCODONE (ROXICODONE) 5 MG immediate release tablet Take 1-2 tablets (5-10 mg total) by mouth every 4 (four) hours as needed. 30 tablet 0 07/09/2022 Active senna-docusate (PERICOLACE) 8.6-50 MG Take 1 tablet by mouth 2 (two) times a day. 30 tablet 0 07/09/2022 Active ondansetron (ZOFRAN-ODT) 8 MG disintegrating tablet Take 1 tablet (8 mg total) by mouth every 8 (eight) hours as needed for nausea. 10 tablet 0 07/09/2022 Active Active Problems Problem Noted Date Diagnosed Date Osteoarthritis of left hip, unspecified osteoart hritis type 07/08/2022 Fracture 04/10/2021 Spinal stenosis of lumbar re gion without neurogenic claudication 10/03/2020 It band syndrome, right 10/03/2020 Arthritis of right hip 09/25/2020 Lumbar back pain with radicu lopathy affecting right lower extremity 09/25/2020 DDD (degenerative disc disease), lumbar 09/26/19 Postop check 10/07/2017 Chronic right shoulder pain 04/22/2017 Immunizations Name Administration Dates Next Due Covid-19 (Pfizer) Dilution Required 02/11,09/17/2021,10/08/2020,08/29/19 21,08/07/2020 Family History Medical History Relation Name Comments [...] Not Answered Alcohol Use Standard Drinks/Week Comments No 0 (1 standard drink = 0.6 oz pur e alcohol) Sex and Gender Information Value Date Recorded Sex Assigned at Male 11/28/2020 9:25 AM EDT Gender Identity Male 11/28/2020 9:25 AM EDT Sexual Orientation Straight 11/28/2020 9: 25 AM EDT Job Start Date Occupation Industry Not on file Not on file Not on file Last Filed Vital Signs Vital Sign Reading Time Taken Comments Blood Pressure 161/74 07/09/2022 8:17 AM EST Pulse 62 07/09/2022 8:17 AM EST Temperature 37 C (98.6 F) 07/09/2022 8:17 AM EST Respiratory Rate 18 07/09/2022 8:17 AM EST Oxygen Saturation 98% 07/09/2022 8:17 AM EST Inhaled Oxygen Concentration - - Weight 99.8 kg (220 lb) 07/08/2022 8:17 AM EST Height 167.6 cm (5' 6 ) 07/08/2022 8:17 AM EST Body Mass Index 35.51 07/08/2022 8:17 AM EST Plan of Treatment Health Maintenance Due Date Last Done Comments Hepatitis C Screening 1951 Depression Screening 1963 BMI Counseling 1969 Preventative Health Evaluation 1969 DTap / Tdap / Td (1 - Tdap) 1970 Colon Cancer Screening (Colonoscopy) 1996 Shingrix-Zoster Vaccine (1 of 2) 2001 Fall Risk Assessment 2016 COVID-19 Vaccine ( season) 2024 02/26/2022, 09/17/2021, 03/10/2021, Additional history exists Influenza Vaccine (#1) 2025 , 04/02/2020, 05/22/2019 RSV Adult > 60+ Yrs or (1 - 1-dose 75+ series) 2026 Pneumococcal Vaccine Completed 10/09/2020, 07/20/19 20 Hepatitis B Vaccines Aged Out No long er eligible based on patient's age to complete this topic RSV Ped < 20 months Aged Out No longe r eligible based on patient's age to complete this topic Medical Devices Implanted Type Area Insulation Professional Device Identifier Shelf Expiration Date Model / Serial / Lot Lp Hex Screw 6.5x30mm Stry-Howm [id number] 78 - [id number] Implanted:Qty: 1 on 12/11/2020 by Gerson [facility] Right: Hip [employer] [facility] 05/27/2025 7570-4666 / / [id number] Tritanium Cluster Hole Shell 58mm Stry-Howm [id number]-[id number] 475 - [id number] Implanted:Qty: 1 on 12/11/2020 by Gerson Schwartz MD at [facility] Right: Hip [employer] 07/09/2025 702-04-58F / / [id number] Lp Hex Screw 6.5x25mm Stry-Howm 3559-1601-3375 58 - [id number] Implanted:Qty: 1 on 12/11/2020 by Gerson Schwartz MD at [facility] Right: Hip [facility] 08/29/2025 2818-9807 / / [id number] Lp Hex Screw 6.5x25mm Stry-Howm 9941-5112-1105 58 - [id number] Implanted:Qty: 1 on 12/11/2020 by Gerson Schwartz MD at [facility] Right: Hip [employer] 08/29/2025 4867-2907 / / [id number] Hip Insrt Poly X3 10deg 36mm Stry-Howm 183-62-32o-[id number] 348 - [id number] Implanted:Qty: 1 on 12/11/2020 by Gerson Schwartz MD at [facility] Right: Hip [facility] 03/25/2025 623-10-36F / / [id number] Stem Hip Neck Angle 127 Degree Accolade Ii Sz6 - [id number] - [id number] Implanted:Qty: 1 on 12/11/2020 by Gerson Schwartz MD at [facility] Right: Hip [facility] 10/20/20254448-6632 / / [id number] Hip Head Delta Biolox 36mm -5 Stry-Howm 9245-3-368-549 190 - [id number] Implanted:Qty: 1 on 12/11/2020 by Gerson Schwartz MD at [facility] Right: Hip [facility] 09/19/2025 6570-0-036 / / [id number] Lp Hex Screw 6.5x20mm Stry-Howm 9015-8988-4135 57 - [id number] Implanted:Qty: 1 on 04/02/2021 by Gerson Schwartz MD at [facility] Left: Hip [facility] [id number] 10/15/2025 7951-9417 / / [id number] Hip Stem Accolade Ii Sz6 Stry-Howm 3230-1141-3946 19 - [id number] Implanted:Qty: 1 on 04/02/2021 by Gerson Schwartz MD at [facility] Left: Hip [employer] [facility] [id number] 01/15/202667203735-5299 / / [id number] Tritanium Cluster Hole Shell 56mm Stry-Howm 562-45-96l-770 474 - [id number] Implanted:Qty: 1 on 04/02/2021 by Gerson Schwartz MD at [facility] Left: Hip [employer] [facility] [id number] 11/20/2025 702-04-56F / / [id number] Lp Hex Screw 6.5x30mm Stry-Howm 7733-8461-8090 78 - [id number] Implanted:Qty: 1 on 04/02/2021 by Gerson Schwartz MD at [facility] Left: Hip [facility] [id number] 11/03/2025 4181-4581 / / [id number] Hip Cabl Coblt Chrm [facility] - [id number] Implanted:Qty: 1 on 04/11/2021 by Louie Benítez MD at [facility] Left: Hip [employer] [facility] 09/30/20307996-6023 / / [id number] Hip Cabl Coblt Chrm 2mm W Clmp [facility] 03 - [id number] Implanted:Qty: 1 on 04/11/2021 by Louie Benítez MD at [facility] Left: Hip [employer] [facility] 05/15/2030 9778-4208 / / [id number] Hip Cabl Coblt Chrm 2mm W Clmp [facility] 03 - [id number] Implanted:Qty: 1 on 04/11/2021 by Louie Benítez MD at [facility] Left: Hip [employer] [facility] 01/03/20312901-3542 / / [id number] Hip Cabl Coblt Chrm 2mm W Clmp [facility] 03 - [id number] Implanted:Qty: 1 on 04/11/2021 by Louie Benítez MD at [facility] Left: Hip [employer] [facility] 01/03/20313961-8910 / / [id number] Slvls Monolithic Rev [id number] [facility] 55621685-22616 9 - [id number] Implanted:Qty: 1 on 04/11/2021 by Louie Benítez MD at [facility] Left: Hip [employer] [facility] 08/27/2028 [id number] / / [id number] Hip Hd Fem 12 14 36mm +4mm [facility] 6337-5220-4612 55 - [id number] Implanted:Qty: 1 on 04/11/2021 by Louie Benítez MD at [facility] Left: Hip [employer] [facility] 02/07/2031 5274-5240 / / [id number] Hip Hd Fem 12 14 Tapr 28mm +8 [facility] 7120-6142-0891 37 - [id number] Implanted:Qty: 1 on 07/08/2022 by Louie Benítez MD at [facility] Left: Hip [employer] [facility] 07/27/2031 7099-6639 / / [id number] 28mm Id, 46mm Od Dual Mobility Insert Xlpe Implanted:Qty: 1 on 07/08/2022 at [facility] Left: Hip [employer] [facility] 11/25/2030 [id number] / / [id number] Hip Insrt Mod Dl Mobility 46mm Stry-Howm 284-78-11q-551 384 - [id number] Implanted:Qty: 1 on 07/08/2022 by Louie Benítez MD at [facility] [employer] [facility] 626-00-46F / / Explanted Type Area Insulation Professional Device Identifier Shelf Expiration Date Model / Serial / Lot Hip Insrt Poly X3 10deg 36mm Stry-Howm 083-51-62f-[id number] 348 - [id number] Implanted:Qty: 1 on 04/02/2021 by Gerson Schwartz MD at [facility] Explanted:Qty: 1 on 07/08/2022 at [facility] Left: Hip [facility] [id number] 08/11/2024 623-10-36F / / [id number] Hip Head Delta Biolox 36mm -5 Stry-Howm 2136-6-520-549 190 - [id number] Implanted:Qty: 1 on 04/02/2021 by Gerson Schwartz MD at [facility] Med Explanted:Qty: 1 on 07/08/2022 at [facility] Left: Hip [facility] [id number] 02/01/2026 6570-0-036 / / [id number] 6.5mm Low Profile Hex Screw Explanted:Qty: 1 on 07/08/2022 at [facility] 05/03/2027 9955-3270 / / [id number] Description:Not implanted, u sed to remove previous implanted liner Advance Directives For more information, please contact: [phone] Latest Code Status on File Code Status Date Activated Date Inactivated Comments Full Code 07/08/2022 1:35 PM 07/09/2022 7:17 PM This code status was ascertained in the following way: discussion with patient . Code Status History Code Status Date Activated Date Inactivated Comments Full Code 07/08/2022 8:06 AM 07/08/2022 1:35 PM This code status was ascertained in the following way: discussion with patient . Full Code 04/10/2021 5:47 PM 04/13/2021 7:32 PM This code status was ascertained in the following way: discussion with patient . Full Code 04/02/2021 10:19 AM 04/03/2021 7:52 PM Th is code status was ascertained in the following way: discussion with patient . Full Code 04/02/2021 5:38 AM 04/02/2021 10:19 AM Th is code status was ascertained in the following way: discussion with patient . Care Teams Stereotype Molder Relationship Specialty Start Date End Date Marilu Quesada PA-C PCP - General Medical Services 07/08/22
== END 2024-12-25 09:01 | disposition home or self-care (01) ==
LOC: HO.HOS 08:32
PROVIDERS: Visit Provider Physician Assistant
DX: S52.121A Displaced fracture of head of right radius, initial encounter for closed fracture (principal)
CPT/HCPCS: 99213

== ENCOUNTER → 2024-12-25 08:33 | Outpatient (BNV) | payer MEDICARE, SELFPAY | PROVIDERS: Visit Provider Radiology Diagnostic Radiology | DX: S52.121K Displaced fracture of head of right radius, subsequent encounter for closed fracture with nonunion (principal) | CPT/HCPCS: 73080 ==

== ENCOUNTER 2024-12-25 10:39 | Outpatient (REF) | payer MEDICARE, SELFPAY ==
--- NOTE | ~2024-12-25 | XR_ITS ---
EXAMINATION: XR ELBOW, RIGHT CLINICAL INFORMATION: M25.529 - Pain in unspecified elbow COMPARISON: November 30, 2024. TECHNIQUE: AP, lateral, and oblique views of the right elbow. FINDINGS: There is no callus formation in the comminuted displaced fracture of the radial aspect radial head. XR/XR elbow RT min 3V IMPRESSION: Nonunion displaced radial head fracture, right elbow Electronically signed by: Jorge Traore MD 12/25/2024 08:43 AM EDT
--- OUTSIDE RECORDS SUMMARY | 2024-12-26 11:19 | XMS_ITS | Clinical Summary ---
Author Organization [facility] Address [address] [place] [address] Care Team Providers Care Senior Operator Name Role Phone Marilu Quesada PA-C Primary [...] this topic Medical Devices Implanted Type Area Trucksmith Device Identifier Shelf Expiration Date Model / Serial / Lot Lp Hex Screw 6.5x30mm Stry-Howm 0010-9011-8354 78 - [id number] Implanted:Qty: 1 on 12/11/2020 by Gerson Schwartz MD at [facility] Right: Hip [employer] 05/27/2025 8367-1386 / / [id number] Tritanium Cluster Hole Shell 58mm Stry-Howm 158-78-36f-770 475 - [id number] Implanted:Qty: 1 on 12/11/2020 by Gerson Schwartz MD at [facility] Right: Hip [employer] 07/09/2025 702-04-58F / / [id number] Lp Hex Screw 6.5x25mm Stry-Howm 0125-1846-7625 58 - [id number] Implanted:Qty: 1 on 12/11/2020 by Gerson Schwartz MD at [facility] Right: Hip [employer] [facility] 08/29/2025 7055-6736 / / [id number] Lp Hex Screw 6.5x25mm Stry-Howm 5875-2080-6787 58 - [id number] Implanted:Qty: 1 on 12/11/2020 by Gerson Schwartz MD at [facility] Right: Hip [employer] 08/29/2025 5868-4511 / / [id number] Hip Insrt Poly X3 10deg 36mm Stry-Howm 793-43-58h-287 348 - [id number] Implanted:Qty: 1 on 12/11/2020 by Gerson Schwartz MD at [facility] Right: Hip [employer] [facility] 03/25/2025 623-10-36F / / [id number] Stem Hip Neck Angle 127 Degree Accolade Ii Sz6 - [id number] - [id number] Implanted:Qty: 1 on 12/11/2020 by Gerson Schwartz MD at [facility] Right: Hip [employer] [facility] 10/20/20251638-2007 / / [id number] Hip Head Delta Biolox 36mm -5 Stry-Howm 4975-0-465-549 190 - [id number] Implanted:Qty: 1 on 12/11/2020 by Gerson Schwartz MD at [facility] Right: Hip [employer] [facility] 09/19/2025 6570-0-036 / / [id number] Lp Hex Screw 6.5x20mm Stry-Howm 5578-1662-0019 57 - [id number] Implanted:Qty: 1 on 04/02/2021 by Gerson Schwartz MD at [facility] Left: Hip [employer] [id number] 10/15/2025 3500-9371 / / [id number] Hip Stem Accolade Ii Sz6 Stry-Howm 6098-5485-5717 19 - [id number] Implanted:Qty: 1 on 04/02/2021 by Gerson Schwartz MD at [facility] Left: Hip [employer] [id number] 01/15/202667208802-7612 / / [id number] Tritanium Cluster Hole Shell 56mm Stry-Howm 873-76-24n-770 474 - [id number] Implanted:Qty: 1 on 04/02/2021 by Gerson Schwartz MD at [facility] Left: Hip [employer] [id number] 11/20/2025 702-04-56F / / [id number] Lp Hex Screw 6.5x30mm Stry-Howm 9447-5060-9278 78 - [id number] Implanted:Qty: 1 on 04/02/2021 by Gerson Schwartz MD at [facility] Left: Hip [employer] [id number] 11/03/2025 3389-9670 / / [id number] Hip Cabl Coblt Chrm [facility] 03 - [id number] Implanted:Qty: 1 on 04/11/2021 by Louie Benítez MD at [facility] Left: Hip [employer] [facility] 09/30/20303938-5544 / / [id number] Hip Cabl Coblt Chrm 2mm W Clmp [facility]-Orth 03 - [id number] Implanted:Qty: 1 on 04/11/2021 by Louie Benítez MD at [facility] Left: Hip [employer] [facility] 05/15/2030 5394-5264 / / [id number] Hip Cabl Coblt Chrm 2mm W Clmp [facility]Or[facility] 03 - [id number] Implanted:Qty: 1 on 04/11/2021 by Louie Benítez MD at [facility] Left: Hip [employer] [facility] 01/03/20313872-1120 / / [id number] Hip Cabl Coblt Chrm 2mm W Clmp [facility]Or[facility] 03 - [id number] Implanted:Qty: 1 on 04/11/2021 by Louie Benítez MD at [facility] Left: Hip [employer] [facility] 01/03/20314023-5929 / / [id number] Slvls Monolithic Rev Gowl295tr [facility]n-Orth 86036343-62721 9 - [id number] Implanted:Qty: 1 on 04/11/2021 by Louie Benítez MD at [facility] Left: Hip [employer] [facility] 08/27/2028 [id number] / / [id number] Hip Hd Fem 12 14 36mm +4mm [facility]n-Orth 8941-4837-7239 55 - [id number] Implanted:Qty: 1 on 04/11/2021 by Louie Benítez MD at [facility] Left: Hip [employer] [facility] 02/07/2031 0776-6251 / / [id number] Hip Hd Fem 12 14 Tapr 28mm +8 [facility]Or[facility] 6979-6612-1699 37 - [id number] Implanted:Qty: 1 on 07/08/2022 by Louie Benítez MD at [facility] Left: Hip [employer] 07/27/2031 5297-1893 / / [id number] 28mm Id, 46mm Od Dual Mobility Insert Xlpe Implanted:Qty: 1 on 07/08/2022 at [facility] Left: Hip [employer] 11/25/2030 [id number] / / [id number] Hip Insrt Mod Dl Mobility 46mm Stry-Howm 947-76-03q-551 384 - [id number] Implanted:Qty: 1 on 07/08/2022 by Louie Benítez MD at [facility] [employer] [facility] 626-00-46F / / Explanted Type Area Trucksmith Device Identifier Shelf Expiration Date Model / Serial / Lot Hip Insrt Poly X3 10deg 36mm Stry-Howm 095-21-66a-287 348 - [id number] Implanted:Qty: 1 on 04/02/2021 by Gerson Schwartz MD at [facility] Explanted:Qty: 1 on 07/08/2022 at [facility] Left: Hip [employer] [id number] 08/11/2024 623-10-36F / / [id number] Hip Head Delta Biolox 36mm -5 Stry-Howm 9393-1-644-549 190 - [id number] Implanted:Qty: 1 on 04/02/2021 by Gerson Schwartz MD at [facility] Explanted:Qty: 1 on 07/08/2022 at [facility] Left: Hip [employer] [facility] [id number] 02/01/2026 6570-0-036 / / [id number] 6.5mm Low Profile Hex Screw Explanted:Qty: 1 on 07/08/2022 at [facility] [employer] [facility] 05/03/2027 3564-1314 / / [id number] Description:Not implanted, u sed to remove previous implanted liner Advance Directives For more information, please contact: [phone] Latest Code Status on File Code Status [...] way: discussion with patient . Care Teams Senior Operator Relationship Specialty Start Date End Date Marilu Quesada PA-C PCP - General Medical Services 07/08/22
--- OUTSIDE RECORDS SUMMARY | 2024-12-26 11:19 | XMS_ITS ---
Author Name [facility] Organization Unknown Results Test Name/Text Value Interpretation Date Range Source E coli O157H7 Stl Ql Cult SEE NOTE 12/05/2024 [facility] E coli SXT Stl Ql IA SEE NOTE 12/05/2024 [facility] Salm + Shig Stl Cult SEE NOTE 12/05/2024 [facility] C jejuni+C coli Ag Stl Ql SEE NOTE 12/05/2024 [facility] G lamblia Ag Stl Ql IA SEE NOTE 12/05/2024 [facility] O+P Stl Tri Stn SEE NOTE 12/05/[address] [facility] C diff Tox gens Stl Ql SHELBY+probe NOT DETECTED Normal 12/05/2024 - [facility] CO2 SerPl-sCnc 26.0 mmol/L Normal 11/21/2024 20 - 32 QU EST Bilirub SerPl-mCnc 0.4 mg/dL Normal 11/21/2024 0.2 - 1.2 [facility] Albumin/Glob SerPl 1.7 (calc) Normal 11/21/2024 1 - 2.5 [facility] Potassium SerPl-sCnc 4.2 mmol/L Normal 11/21/2024 3.5 - 5 .3 [facility] Sodium SerPl-sCnc 139.0 mmol/L Normal 11/21/2024 135 - 14 6 [facility] ALP SerPl-cCnc 64.0 U/L Normal 11/21/2024 35 - 144 [facility] Creat SerPl-mCnc 1.33 mg/dL Above high normal 11/21/2024 0.7 - 1.28 [facility] Albumin SerPl-mCnc 4.0 g/dL Normal 11/21/2024 3.6 - 5.1 [facility] BUN SerPl-mCnc 28.0 mg/dL Above high normal 11/21/2024 7 - 2 5 [facility] AST SerPl-cCnc 40.0 U/L Above high normal 11/21/2024 10 - 3 5 [facility] Globulin Ser Calc-mCnc 2.3 g/dL (calc) Normal 11/21/2024 1.9 - 3.7 [facility] eGFRcr SerPlBld CKD-EPI 2020 56.0 mL/min/1.73m2 Below low normal 11/21/2024 - [facility] Glucose SerPl-mCnc 82.0 mg/dL Normal 11/21/2024 65 - 99 [facility] Chloride SerPl-sCnc 106.0 mmol/L Normal 11/21/2024 98 - 1 10 [facility] ALT SerPl-cCnc 30.0 U/L Normal 11/21/2024 9 - 46 [facility] Calcium SerPl-mCnc 9.0 mg/dL Normal 11/21/2024 8.6 - 10.3 [facility] BUN/Creat SerPl 21.0 (calc) Normal 11/21/2024 6 - 22 Q [facility] Prot SerPl-mCnc 6.3 g/dL Normal 11/21/2024 6.1 - 8.[address] [facility] MCHC RBC Auto-EntMCnc 30.7 g/dL Below low normal 11/21/2024 32 - 36 [facility] RBC Auto 89.7 fL Normal 11/21/2024 80 - 100 [facility] WBC # Bld Auto 6.2 Thousand/uL Normal 11/21/2024 3.8 - 10 .8 [facility] Basophils # Bld Auto 31.0 cells/uL Normal 11/21/2024 0 - 200 [facility] Eosinophil NFr Bld Auto 2.3 % Normal 11/21/2024 [facility] Eosinophil # Bld Auto 143.0 cells/uL Normal 11/21/2024 15 - 500 [facility] Platelet # Bld Auto 258.0 Thousand/uL Normal 11/21/2024 1 40 - 400 [facility] Monocytes # Bld Auto 657.0 cells/uL Normal 11/21/2024 200 - 950 [facility] MCH RBC Qn Auto 27.6 pg Normal 11/21/2024 27 - [address] [facility] RDW RBC Auto 12.5 % Normal 11/21/2024 11 - 15 [facility] RBC # Bld Auto 4.86 Million/uL Normal 11/21/2024 4.2 - 5. 8 [facility] Hgb Bld-mCnc 13.4 g/dL Normal 11/21/2024 13.2 - 17.1 [facility] Hct VFr Bld Auto 43.6 % Normal 11/21/2024 38.5 - 50 QU EST Lymphocytes NFr Bld Auto 22.8 % Normal 11/21/2024 [facility] Neutrophils NFr Bld Auto 63.8 % Normal 11/21/2024 [facility] Basophils NFr Bld Auto 0.5 % Normal 11/21/2024 [facility] Monocytes NFr Bld Auto 10.6 % Normal 11/21/2024 [facility] Neutrophils # Bld Auto 3956.0 cells/uL Normal 11/21/2024 1500 - 7800 [facility] PMV Bld Alvin-Neto 10.6 fL Normal 11/21/2024 7.5 - 12.5 [facility] Lymphocytes # Bld Auto 1414.0 cells/uL Normal 11/21/2024 850 - 3900 [facility] Lipase SerPl-cCnc 80.0 U/L Above high normal 07/13/2024 7 - 60 [facility] Chloride SerPl-sCnc 104.0 mmol/L Normal 07/13/2024 98 - 1 10 [facility] Globulin Ser Calc-mCnc 2.0 g/dL (calc) Normal 07/13/2024 1.9 - 3.7 [facility] Prot SerPl-mCnc 6.3 g/dL Normal 07/13/2024 6.1 - 8.[address] [facility] Calcium SerPl-mCnc 9.4 mg/dL Normal 07/13/2024 8.6 - 10.3 [facility] BUN SerPl-mCnc 24.0 mg/dL Normal 07/13/2024 7 - [address] eGFRcr SerPlBld CKD-EPI 2020 52.0 mL/min/1.73m2 Below low normal 07/13/2024 - [facility] Creat SerPl-mCnc 1.42 mg/dL Above high normal 07/13/2024 0.7 - 1.28 [facility] Albumin SerPl-mCnc 4.3 g/dL Normal 07/13/2024 3.6 - 5.1 [facility] Sodium SerPl-sCnc 141.0 mmol/L Normal 07/13/2024 135 - 14 6 [facility] Glucose SerPl-mCnc 83.0 mg/dL Normal 07/13/2024 65 - 139 [facility] ALT SerPl-cCnc 17.0 U/L Normal 07/13/2024 9 - 46 [facility] Bilirub SerPl-mCnc 0.4 mg/dL Normal 07/13/2024 0.2 - 1.2 [facility] ALP SerPl-cCnc 59.0 U/L Normal 07/13/2024 35 - 144 [facility] AST SerPl-cCnc 25.0 U/L Normal 07/13/2024 10 - 35 [facility] CO2 SerPl-sCnc 26.0 mmol/L Normal 07/13/2024 20 - 32 QU EST BUN/Creat SerPl 17.0 (calc) Normal 07/13/2024 6 - 22 Q [facility] Potassium SerPl-sCnc 4.4 mmol/L Normal 07/13/2024 3.5 - 5 .3 [facility] Albumin/Glob SerPl 2.2 (calc) Normal 07/13/2024 1 - 2.5 [facility] Platelet # Bld Auto 229.0 Thousand/uL Normal 07/13/2024 1 40 - 400 [facility] MCHC RBC Auto-mCnc 32.6 g/dL Normal 07/13/2024 32 - 36 [facility] RBC # Bld Auto 4.99 Million/uL Normal 07/13/2024 4.2 - 5. 8 [facility] MCH RBC Qn Auto 28.1 pg Normal 07/13/2024 27 - [address] PMV Bld Alvin-Neto 11.2 fL Normal 07/13/2024 7.5 - 12.5 [facility] RDW RBC Auto-Rto 12.6 % Normal 07/13/2024 11 - 15 QU EST WBC # Bld Auto 8.2 Thousand/uL Normal 07/13/2024 3.8 - 10 .8 [facility] Hgb Bld-mCnc 14.0 g/dL Normal 07/13/2024 13.2 - 17.1 [facility] MCV RBC Auto 86.2 fL Normal 07/13/2024 80 - 100 [facility] Hct VFr Bld Auto 43.0 % Normal 07/13/2024 38.5 - 50 QU EST History of Medication Use Medication Directions Dispensed Refills Start Date End Date Stat us SUPPLY DME MISC [employer]Med AirSense 11 with modem only (no substitute, brand medically necessary) auto 5-15 cmH2O, EPR 3 timekeeper supervisor, heated humidification, heated tubing, AirFit N30 or patient preference, Conecte Link data link to be active for indefinite [...] mL, 0 Refills, Maintenance, 03/11/23 15:04:00 EDT, [facility] STORE [facility], 60, SPRAY 1 SPRAY INTO BOTH NARES [...] nightly. active Cholecalciferol (Vitamin D) 50 MCG (1999) Cap Take by mouth. active finasteride (PROSCAR) 5 MG tablet Take 1 tablet (5 mg total) by mouth daily. active Allergies Allergen Reaction Severity Comment Documented Date Source Statu s BEE VENOM SWELLING LOCALIZED,FACIA L SWELLING, LOCALIZED SWELLING 12/03/2020 [facility] active METOPROLOL HIVES 11/14/2020 [facility] active BEE VENOM PROTEIN (HONEY BEE) ENS_AONECT Problems [...] 2024-05-22 [facility]Act [facility] Nocturia active 2024-05-22 ProblemAct [facility] Immunizations Vaccine Date Source Lot Number Status Pneumococcal Polysaccharide 23-Valent 10/09/2020 [facility] [id number] completed Pneumococcal Conjugate 13-Valent 07/20/2019 [facility] [id number] completed Encounters Encounter Type Encounter Reason Primary Diagnosis Location Date Ambulatory Diarrhea, unspecified Diarrhea, unspecified [facility] 11/20/2024 Ambulatory Obstructive sleep apnea (adult) (pediatric) Obstructive sleep apnea (adult) (pediatric) [facility] 07/09/2024 Ambulatory Essential (primary) hypertension Essential (primary) hypertension [facility] 07/09/2024 Ambulatory Other symptoms and signs involving the nervous system Other symptoms and signs involving the nervous system [facility] 05/22/2024 Ambulatory Essential (primary) hypertension Essential (primary) hypertension [facility] 04/02/2024 Ambulatory Essential (primary) hypertension Essential (primary) hypertension [facility] 02/20/2024 Ambulatory Acute cough Acute cough [facility] 02/10/2024 Ambulatory Acute cough Acute cough [facility] 01/23/2024 Ambulatory Prediabetes Prediabetes [facility] 01/16/2024 Ambulatory [facility] 12/10/2022 Ambulatory [facility] 12/10/2022 Ambulatory [facility] 11/04/2022 Ambulatory [facility] 09/10/2022 Care Team Organization Name Specialty Phone Email Start Date End Da te [facility] 01/17/2024 025 [facility] 01/16/2024 [facility] NO PCP Primary Care 10/17/2023
--- OUTSIDE RECORDS SUMMARY | 2024-12-26 11:19 | XMS_ITS | Clinical Summary ---
Author Organization [facility] Address [address] [place] [address] Care Team Providers Care Apprenticeship Consultant Name Role Phone Marilu Quesada Primary Care Provider [phone] Surgical History Surgery Date Site/Laterality Comments CHOLECYSTECTOMY PROCEDURE:CHOLECYSTECTOMY SHOULDER SURGERY Right PROCEDURE:SHOULDER SURGERY;COMMENT:2015 CARDIAC CATHETERIZATION 2013 PROCEDURE:CARDIAC CATHETERIZATION COLONOSCOPY PROCEDURE:COLONOSCOPY TOTAL HIP ARTHROPLASTY 12/11/2020 Right PROCEDURE:TOTAL HIP ARTHROPLASTY;COMMENT:Procedur e: REPLACEMENT TOTAL HIP; Surgeon: Gerson Schwartz MD; Location: [facility] Service: Orthopedics; Laterality: Right; TOTAL HIP ARTHROPLASTY 04/02/2021 Left PROCEDURE:TOTAL HIP ARTHROPLASTY;COMMENT:Procedur e: REPLACEMENT TOTAL HIP; Surgeon: Gerson Schwartz MD; Location: [facility] ([facility]); Service: Orthopedics; Laterality: Left; REVISION TOTAL HIP CUP AND/O R STEM 04/11/2021 Left PROCEDURE:REVISION TOTAL HIP CUP AND/OR STEM;COMMENT:Procedure: REVISION TOTAL HIP COMPONENTS - PREIPROSTHETIC FRACTURE; Surgeon: Louie Benítez MD; Location: [facility] ([facility]); Service: Orthopedics; Laterality: Left; TONSILLECTOMY PROCEDURE:TONSILLECTOMY;COMME NT:as a child REVISION TOTAL HIP CUP AND/O R STEM 07/08/2022 Left PROCEDURE:REVISION TOTAL HIP CUP AND/OR STEM;COMMENT:Procedure: REVISION TOTAL HIP COMPONENTS; Surgeon: Louie Benítez MD; Location: [facility] (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 CUBA LAD no stent thrombosis after this procedure Hypertension DX:Hypertension Lyme disease DX:Lyme disease Coronary artery disease DX:Coron sri artery disease;COMMENT:2013 Multiple sclerosis ([facility] V24, [facility] V28) DX:Multiple sclerosis (HCC) Gastroesophageal reflux [...] this topic Medical Devices Implanted Type Area Claims Analyst Device Identifier Shelf Expiration Date Model / Serial / Lot Lp Hex Screw 6.5x30mm Stry-Howm [id number] 78 Implanted:Qty: 1 on 12/11/2020 by Gerson Schwartz MD Right: Hip [employer] 05/27/2025 5683-9401 / / [id number] Tritanium Cluster Hole Shell 58mm Stry-How 343-67-13r-770 475 Implanted:Qty: 1 on 12/11/2020 by Gerson Schwartz MD Right: Hip [employer] 07/09/2025 702-04-58F / / [id number] Lp Hex Screw 6.5x25mm Stry-How 8469-2019-5526 58 Implanted:Qty: 1 on 12/11/2020 by Gerson Schwartz MD Right: Hip [employer] 08/29/2025 5445-7916 / / [id number] Lp Hex Screw 6.5x25mm Stry-Howm 3750-0579-2483 58 Implanted:Qty: 1 on 12/11/2020 by Gerson Schwartz MD Right: Hip [employer] 08/29/2025 9510-7281 / / [id number] Hip Insrt Poly X3 10deg 36mm Stry-Howm 159-22-77y-287 348 Implanted:Qty: 1 on 12/11/2020 by Gerson Schwartz MD Right: Hip [employer] 03/25/2025 623-10-36F / / [id number] Stem Hip Neck Angle 127 Degree Accolade Ii Sz6 - [id number] Implanted:Qty: 1 on 12/11/2020 by Gerson Schwartz MD Right: Hip [employer] 10/20/20253776-1306 / / [id number] Hip Head Delta Biolox 36mm -5 Stry-Howm 3915-2-760-549 190 Implanted:Qty: 1 on 12/11/2020 by Gerson Schwartz MD Right: Hip [employer] 09/19/2025 6570-0-036 / / [id number] Lp Hex Screw 6.5x20mm Stry-Howm 1854-2601-8784 57 Implanted:Qty: 1 on 04/02/2021 by Gerson Schwartz MD Left: Hip [employer] [id number] 10/15/2025 1899-5824 / / YNK Hip Stem Accolade Ii Sz6 Stry-Howm 8353-9165-3304 19 Implanted:Qty: 1 on 04/02/2021 by Gerson Schwartz MD Left: Hip [employer] [id number] 01/15/20268234-3340 / / [id number] Tritanium Cluster Hole Shell 56mm Stry-Howm 022-96-38c-770 474 Implanted:Qty: 1 on 04/02/2021 by Gerson Schwartz MD Left: Hip [employer] [id number] 11/20/2025 702-04-56F / / [id number] Lp Hex Screw 6.5x30mm Stry-How 3551-9333-1133 78 Implanted:Qty: 1 on 04/02/2021 by Gerson Schwartz MD Left: Hip [employer] [id number] 11/03/2025 0204-2444 / / [id number] Hip Cabl Coblt Chrm 2mm W Clmp Smn-Orth 03 Implanted:Qty: 1 on 04/11/2021 by Louie Benítez MD Left: Hip [employer] [facility] 09/30/20303789-4678 / / [id number] Hip Cabl Coblt Chrm 2mm W Clmp Smn-Orth 03 Implanted:Qty: 1 on 04/11/2021 by Louie Benítez MD Left: Hip [employer] 05/15/2030 3194-0675 / / [id number] Hip Cabl Coblt Chrm 2mm W Clmp Smn-Orth 03 Implanted:Qty: 1 on 04/11/2021 by Louie Benítez MD Left: Hip [employer] [facility] 01/03/20314871-2507 / / [id number] Hip Cabl Coblt Chrm 2mm W Clmp Smn-Orth 03 Implanted:Qty: 1 on 04/11/2021 by Louie Benítez MD Left: Hip [employer] [facility] 01/03/20318906-9620 / / [id number] Slvls Monolithic Rev [id number] Smn-Orth [id number] 9 Implanted:Qty: 1 on 04/11/2021 by Louie Benítez MD Left: Hip [employer] [facility] 08/27/2028 [id number] / / [id number] Hip Hd Fem 12 14 36mm +4mm Smn-Orth 7294-7869-0112 55 Implanted:Qty: 1 on 04/11/2021 by Louie Benítez MD Left: Hip [employer] 02/07/2031 7081-9583 / / [id number] Hip Hd Fem 12 14 Tapr 28mm +8 Smn-Orth 2369-7760-6563 37 Implanted:Qty: 1 on 07/08/2022 by Louie Benítez MD Left: Hip [employer] 07/27/2031 3815-9346 / / [id number] 28mm Id, 46mm Od Dual Mobility Insert Xlpe Implanted:Qty: 1 on 07/08/2022 Left: Hip [employer] 11/25/2030 [id number] / / [id number] Hip Insrt Mod Dl Mobility 46mm [facility] 475-84-48i-551 384 Implanted:Qty: 1 on 07/08/2022 by Louie Benítez MD [employer] 626-00-46F / / Care Teams Apprenticeship Consultant Relationship Specialty Start Date End Date Marilu Quesada PA [address] [place] [address] PCP - General 07/08/22
--- OUTSIDE RECORDS SUMMARY | 2024-12-26 11:19 | XMS_ITS | Encounter Summary ---
Author Organization [facility] Address [address] [place] [address] Care Team Providers Care Business Office Technician Name Role Phone Sophia Monroe MD Primary Care Provider [phone] Nahum Benavides MD Unavailable Cuba Claire MD Unavailable [phone] Alan Harris MD Unavailable [phone] Jessica Nelson MD Unavailable [phone] Sophia Monroe MD Unavailable [phone] Encounter Details Date Type Department Care Team (Late st Contact Info) Description 05/01/2024 Scanned Document [address] [phone] Primary Care, Scan Social History [...] Description 01/03/2025 10:00 AM EDT Office Visit [address] [phone] Sophia Monroe MD [address] [place] [address] documented as of this encounter Visit Diagnoses Not on filedocumented in this encounter Care Teams Business Office Technician Relationship Specialty Start Date End Date Sophia Monroe MD [address] [place] [address] PCP - General Internal Medicine 01/16/24 Sophia Monroe MD [address] [place] [address] PCP - MSSP Attributed 06/13/24 Nahum Benavides MD [address] [place] [address] [address] [place] [address] Neurology 01/17/24 Cuba Claire MD [address] [facility] [address] [place] [address] Referring Provider 01/17/24 Alan Harris MD [address] [address] Referring Provider Surgery, Orthopedic 01/17/24 Jessica Nelson MD [address] [place] [address] [address] [place] [address] Cardiovascular Disease 04/03/24 documented as of this encounter
--- OUTSIDE RECORDS SUMMARY | 2024-12-26 11:20 | XMS_ITS | Data Portability ---
Author Organization [place] [facility], [facility] - INPATIENT Address [address] [place] [address] Care Team Providers Care Warm In Worker Name Role Phone GIUSEPPE OWUSU Primary Care [...] with this plan. All questions were answered. [email or web address] Not available 06/14/2023 07:22:14 06/22/2023 06/22/2023 ASSESSMENT: [...] can start playing golf, starting with the courtesy driver in the car and high number [...] 2022 023 SC[facility], [address], [place], [address], 05/24/2023 15:28:53 Procedures None recorded. Surgeries None recorded. Imaging None recorded. Medication Orders celecoxib 200 mg capsule 2024 025 [email or web address] [id number], [address] [place], [address], 10/16/2024 13:19:24 amoxicill in 500 mg capsule 2023 024 SCOTT [id number], [address] [place], [address], 09/21/2023 13:30:35 Patient TargetsNo targets recorded. Patient InstructionsNo instructions recorded. 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 On: Jun 22 2023 2:56P [email or web address] [facility] [address] [place], [address], 06/22/2023 15:35:02 09/21/19 24 09/21/2023 xr hip left 2-3vw _W or wo pelvi s Fin al Report EXAM#: [id number] PROCED URE: DXR 0174 XR HIP [...] M.D. On: Sep 21 2023 1:37P [email or web address] [facility] [address] [facility], [place], [address], 09/21/2023 15:23:48 09/27/19 25 09/26/2024 xr hip 2-3 vw left [employer] Pt Name : MASSIEL MOREJON AM 1 - Date: 1949 Sex: M Locati on : [facility] DXRAD Visit: [id number] Admit Date: 2024 Date of Servic e: 2024 Exam : XR HIP 2-3 VW LEFT Status : Final Order MD : XOCHILT ROQUE Tel#:[phone] CC Provid er:, ------ ------ ------ ------ [...] RIOS 12:14: 02 Workst ation: [id number] KH2 [email or web address] [facility] [address] [facility], [place], [address], 09/26/2024 15:57:15 Result Notes None recorded. Procedures Surgical History Date Name Laterality Status Provider Name and Address Organization Details Recorded Time 02/23/20 23 Orthopaedic Surgery completed Mina Ramirez MA [facility] 04/20/2023 13:10:46 07/08/19 23 Orthopaedic Surgery completed Mina Ramirez [facility] 04/20/2023 13:10:38 04/09/20 21 Orthopaedic Surgery completed Mina Ramirez [facility] 04/20/2023 13:10:26 04/02/20 21 Other completed Mina Ramriez [facility] 04/20/2023 13:10:06 12/12/19 21 Orthopaedic Surgery completed Mina Ramirez [facility] 04/20/2023 13:10:52 06/13/19 15 Orthopaedic Surgery completed Marichuy Dye MA [facility] 11/17/2022 12:04:00 06/13/19 14 placement of stent in pulmonary artery completed Marichuy Dye MA [facility] 11/17/2022 12:03:42 cholecystectomy completed Marichuy Dye MA [facility] 11/17/2022 12:04:14 Imaging Results None recorded. Procedure Notes None recorded. Medical Equipment None Reported. Allergies Allergen ID Allergen Name Allergen Category Reaction Reaction Severity Criticality Documentation Date Start Date Code Code System Note Provider Name and Address Organization Details Recorded Time 632036 metoprolo l Not available Not available Not available Not available 11/17/2022 6918 RxNorm Marichuy jaime [facility] 3 12:00:18 123267 honey bee venom medicatio n Not available Not available Not available 11/17/2022 23433 7 RxNorm Marichuy jaime [facility] 3 12:00:24 Medications Name Sig Start Date [...] Updated DateTime 06/22/2023 170.18 cm Paulaernestine Brennerrenard [facility] 06/22/2023 12:29:16 Date Recorded Body height Body mass index (BMI) Body weight Provider Name and Address Organization Details Last Updated DateTime 09/21/2023 170.18 cm 37.6 kg/m2 836989.17 g Harmony Herrera [facility] 09/21/2023 13:08:15 Date Recorded Body height Body mass index (BMI) Body weight Provider Name and Address Organization Details Last Updated DateTime 04/20/2023 170.18 cm 37.6 kg/m2 710776.17 g Mina Ramirez [facility] 04/20/2023 13:09:38 Date Recorded Body height Body mass index (BMI) Body weight Provider Name and Address Organization Details Last Updated DateTime 05/18/2023 170.18 cm 37.6 kg/m2 588707.17 g Mina Ramirez [facility] 05/18/2023 13:58:04 Social History None recorded. Functional Status Question Answer Note LastModified by Organizat ion Details LastModified Time What is your level of alcohol consumption? None [email or web address] Information not available 11/17/2022 Do you or have you ever used smokeless tobacco? Never used smokeless tobacco [email or web address] Information not available 11/17/2022 Are you currently employed? No [email or web address] Information not available 11/17/2022 What is your occupation? Retired [email or web address] Information not available 11/17/2022 Do you or have you ever used e-cigarettes or vape? Never used electronic cigarettes [email or web address] Information not available 11/17/2022 Mental Status None recorded. Family History Relationship Description Onset Age of this Age Resolved Age Notes LastModified by Organization Details LastModified Time Father No current problems or disability [email or web address] Not available 12:02:57 Mother No current problems or disability [email or web address] Not available 12:02:57 Medical History Condition Response Heart Problems Y High Blood Pressure Y Any Other Significant Medical Issues Y Angina, Heart Failure or Attack Y Past Encounters Encounter ID Performer Location Encounter Start Date Encounter Closed Date Diagnosis/Indication Diagnosis SNOMED-CT Code Diagnosis ICD10 Code Diagnosis Note [id number] CHAYO HARRIS MD [facility] am Office [address] [place] [place] [address] 11/17/2022 10:28:04 11/17/2022 12:37:58 Instability of left hip joint 035152581 M25.025 [id number] CHAYO HARRIS MD [facility] am Office [address] [place] [place] [address] 12/01/2022 09:55:04 12/08/2022 12:23:15 [id number] MAYELA OCONNELL [facility] am Office [address] [place] [address] 03/23/2023 09:17:21 03/23/2023 12:31:58 Instability of left hip joint 967289333 M25.576 [id number] MAYELA OCONNELL [facility] am Office [address] [place] [address] 04/20/2023 12:37:15 04/20/2023 14:41:00 Instability of left hip joint 010797953 M25.032 [id number] MAYELA OCONNELL [facility] am Office [address] [place] [address] 05/18/2023 12:30:16 05/20/2023 12:40:06 Instability of left hip joint 755702508 M25.079 [id number] CHAYO HARRIS MD [facility] am Office [address] [place] [address] 06/22/2023 11:29:21 06/22/2023 17:11:46 Recurrent dislocation of hip 981807299 M24.936 [id number] CHAYO HARRIS MD [facility] am Office [address] [place] [address] 09/21/2023 11:45:03 09/21/2023 13:39:54 Instability of left hip joint 032115825 M25.284 [id number] MAYELA Oconnell [place] Office [address] [place] [address] 09/26/2024 11:59:28 09/26/2024 13:53:20 Pain of left hip joint 0756288683 51010 M25.552 Health Concerns Section Related Observation LastModified by Organization Detai ls LastModified Time None Recorded Concern Status LastModified by Organization Details LastModified Time None Recorded Advance Directives Directive None Recorded Payers Insurance Date Sequence Insurance Name Policy Number Policy Sung Covered Member ID Sung Member ID Guarantor Name 09/21/2024 1 [place] [employer] Hernesto Morejon [id number] Hernesto Morejon 10/30/2024 2 [place] [id number] Hernesto Morejon [id number] Hernesto Morejon 09/23/2024 [employer] - SPECIALITY CLAIMS (MEDICARE DME REGION A) Hernesto Morejon [id number] Hernesto Morejon Notes Date Note Type Note Provider Name and Address Organization Details Recorded Time 04/20/2023 text/html William presents to [facility] for follow-up regarding his left hip. He is status post left LEELEE revision on 02/22/2023. He is overall doing very well. He has been ambulating at full weightbearing with a walker and knee immobilizer. He was working with in-home PT focusing on knee range of motion. Reports minimal pain. MAYELA OCONNELL [address] [place] [address], [phone], [facility] 04/20/2023 14:47:05 05/18/2023 text/html William presents to [facility] for follow-up regarding his left hip. He is status post left LEELEE revision on 02/22/2023. He is overall doing very well. Reports minimal pain. He has ambulating at full WB and modifying his activities. Overall pleased with his progress. MAYELA OCONNELL [address] [place] [address], [phone], [facility] 06/14/2023 07:22:18 06/22/2023 text/html Mr. Morejon is [...] before the current surgery. CHAYO HARRIS MD [address] [place] [address], [phone], [facility] 06/24/2023 13:39:27 09/21/2023 text/html Mr. Morejon is [...] four weeks ago. CHAYO HARRIS MD [address] [place], [address], [facility] 09/28/2023 08:24:54 09/26/2024 text/html Hernesto Morejon i [...] only takes it at night. MAYELA Oconnell [address] [place] [address], [phone], [facility] 10/16/2024 13:22:08
== END 2024-12-25 10:40 | disposition home or self-care (01) ==
LOC: HO.HOSX 10:39
PROVIDERS: Visit Provider Physician Assistant
DX: M25.521 Pain in right elbow (principal); Z87.81 Personal history of (healed) traumatic fracture
CPT/HCPCS: 73080; 99212

== ENCOUNTER 2025-02-07 08:07 | Outpatient (REF) | payer MEDICARE, SELFPAY ==
--- NOTE | ~2025-02-07 | XR_ITS ---
EXAMINATION: XR ELBOW, RIGHT CLINICAL INFORMATION: M25.529 - Pain in unspecified elbow COMPARISON: Dating back to 11/02/2024, most recently 12/25/2024. TECHNIQUE: AP, lateral, and oblique views of the right elbow. FINDINGS: Redemonstration of mildly comminuted intra-articular fracture of the lateral aspect of the radial head. No change in alignment. Displacement is similar with approximately 2 mm of intra-articular depression. Grossly no bridging bone callus identified although fracture margins are sclerotic. No gross change in the appearance. No additional fracture or dislocation. Mild narrowing of the radiocapitellar and ulnar trochlear joints. Mild spurring of the coronoid process. Prominent enthesopathic spurring of the lateral epicondyle. Mild spurring of the medial epicondyle. No significant joint effusion present. XR/XR elbow RT min 3V IMPRESSION: Comminuted intra-articular lateral radial head fracture, unchanged in appearance from 12/25/2024. Findings may be consistent with delayed union. Electronically signed by: Td Grande MD 02/07/2025 02:33 PM EDT
--- OUTSIDE RECORDS SUMMARY | 2025-02-08 08:40 | XMS_ITS | Clinical Summary ---
Author Organization [facility] Address [address] [place] [address] Care Team Providers Care Meal Miller Name Role Phone Marilu Quesada PA-C Primary [...] this topic Medical Devices Implanted Type Area Peanut Sheller Device Identifier Shelf Expiration Date Model / Serial / Lot Lp Hex Screw 6.5x30mm Stry-Howm 6491-8946-8579 78 - [id number] Implanted:Qty: 1 on 12/11/2020 by Gerson Schwartz MD at [facility] Right: Hip [facility] 05/27/2025 0151-2643 / / [id number] Tritanium Cluster Hole Shell 58mm Stry-Howm 834-70-94q-770 475 - [id number] Implanted:Qty: 1 on 12/11/2020 by Gerson Schwartz MD at [facility] Right: Hip [employer] 07/09/2025 702-04-58F / / [id number] Lp Hex Screw 6.5x25mm Stry-Howm 6889-5834-0001 58 - [id number] Implanted:Qty: 1 on 12/11/2020 by Gerson Schwartz MD at [facility] Right: Hip [employer] [facility] 08/29/2025 0357-8596 / / [id number] Lp Hex Screw 6.5x25mm Stry-Howm 8464-0298-8023 58 - [id number] Implanted:Qty: 1 on 12/11/2020 by Gerson Schwartz MD at [facility] Right: Hip [facility] 08/29/2025 9317-6856 / / [id number] Hip Insrt Poly X3 10deg 36mm Stry-Howm 492-85-85o-287 348 - [id number] Implanted:Qty: 1 on 12/11/2020 by Gerson Schwartz MD at [facility] Right: Hip [employer] [facility] 03/25/2025 623-10-36F / / [id number] [id number] Hip Neck Angle 127 Degree Accolade Ii Sz6 - [id number] - [id number] Implanted:Qty: 1 on 12/11/2020 by Gerson Schwartz MD at [facility] Right: Hip [facility] 10/20/20254872-5249 / / [id number] Hip Head Delta Biolox 36mm -5 Stry-Howm 8028-8-640-549 190 - [id number] Implanted:Qty: 1 on 12/11/2020 by Gerson Schwartz MD at [facility] Right: Hip [employer] [facility] 09/19/2025 6570-0-036 / / [id number] Lp Hex Screw 6.5x20mm Stry-Howm 9885-4772-1452 57 - [id number] Implanted:Qty: 1 on 04/02/2021 by Gerson Schwartz MD at [facility] Left: Hip [facility] [id number] 10/15/2025 7217-7342 / / [id number] Hip Stem Accolade Ii Sz6 Stry-Howm 8242-8765-8625 19 - [id number] Implanted:Qty: 1 on 04/02/2021 by Gerson Schwartz MD at [facility] Left: Hip [employer] [facility] [id number] 01/15/202667207022-9125 / / [id number] Tritanium Cluster Hole Shell 56mm Stry-Howm 024-62-32l-770 474 - [id number] Implanted:Qty: 1 on 04/02/2021 by Gerson Schwartz MD at [facility] Left: Hip [facility] [id number] 11/20/2025 702-04-56F / / [id number] Lp Hex Screw 6.5x30mm Stry-Howm 5326-3985-8856 78 - [id number] Implanted:Qty: 1 on 04/02/2021 by Gerson Schwartz MD at [facility] Left: Hip [employer] [facility] [id number] 11/03/2025 7106-9393 / / [id number] Hip Cabl Coblt Chrm [facility] 03 - [id number] Implanted:Qty: 1 on 04/11/2021 by Louie Benítez MD at [facility] Left: Hip [employer] [facility] 09/30/20307252-6153 / / [id number] Hip Cabl Coblt Chrm 2mm W Clmp [facility]Or[facility] 03 - [id number] Implanted:Qty: 1 on 04/11/2021 by Louie Benítez MD at [facility] Left: Hip [employer] [facility] 05/15/2030 2329-0095 / / [id number] Hip Cabl Coblt Chrm 2mm W Clmp [facility] 03 - [id number] Implanted:Qty: 1 on 04/11/2021 by Louie Benítez MD at [facility] Left: Hip [employer] [facility] 01/03/20312282-9594 / / [id number] Hip Cabl Coblt Chrm 2mm W Clmp [facility] 03 - [id number] Implanted:Qty: 1 on 04/11/2021 by Louie Benítez MD at [facility] Left: Hip [employer] [facility] 01/03/20314739-3254 / / [id number] Slvls Monolithic Rev Axab792dz [facility]-Orth 63804573-32237 9 - [id number] Implanted:Qty: 1 on 04/11/2021 by Louie Benítez MD at [facility] Left: Hip [employer] [facility] 08/27/2028 [id number] / / [id number] Hip Hd Fem 12 14 36mm +4mm [facility]Or[facility] 4216-4256-0563 55 - [id number] Implanted:Qty: 1 on 04/11/2021 by Louie Benítez MD at [facility] Left: Hip [employer] [facility] 02/07/2031 3665-5433 / / [id number] Hip Hd Fem 12 14 Tapr 28mm +8 [facility]Or[facility] 3880-6685-3589 37 - [id number] Implanted:Qty: 1 on 07/08/2022 by Louie Benítez MD at [facility] Left: Hip [employer] [facility] 07/27/2031 3453-1906 / / [id number] 28mm Id, 46mm Od Dual Mobility Insert Xlpe Implanted:Qty: 1 on 07/08/2022 at [facility] Left: Hip [employer] [facility] 11/25/2030 [id number] / / [id number] Hip Insrt Mod Dl Mobility 46mm Stry-Howm 426-66-13w-551 384 - [id number] Implanted:Qty: 1 on 07/08/2022 by Louie Benítez MD at [facility] 626-00-46F / / Explanted Type Area Peanut Sheller Device Identifier Shelf Expiration Date Model / Serial / Lot Hip Insrt Poly X3 10deg 36mm Stry-Howm 537-38-31o-287 348 - [id number] Implanted:Qty: 1 on 04/02/2021 by Gerson Schwartz MD at [facility] Explanted:Qty: 1 on 07/08/2022 at [facility] Left: Hip [facility] [id number] 08/11/2024 623-10-36F / / [id number] Hip Head Delta Biolox 36mm -5 Stry-Howm 6705-7-152-549 190 - [id number] Implanted:Qty: 1 on 04/02/2021 by Gerson Schwartz MD at [facility] Explanted:Qty: 1 on 07/08/2022 at [facility] Left: Hip [facility] [id number] 02/01/2026 6570-0-036 / / [id number] 6.5mm Low Profile Hex Screw Explanted:Qty: 1 on 07/08/2022 at [facility] 05/03/2027 9183-9938 / / [id number] Description:Not implanted, u sed to remove previous implanted liner Advance Directives For more information, please contact: [phone] Latest Code Status on File Code Status [...] way: discussion with patient . Care Teams Meal Miller Relationship Specialty Start Date End Date Marilu Quesada PA-C PCP - General Medical Services 07/08/22
--- OUTSIDE RECORDS SUMMARY | 2025-02-08 08:40 | XMS_ITS | Encounter Summary ---
Author Organization [facility] Address [address] [place] [address] Care Team Providers Care Echocardiographer Name Role Phone Sophia Monroe MD Primary Care Provider [phone] Nahum Benavides MD Unavailable Cuba Claire MD Unavailable [phone] Alan Harris MD Unavailable [phone] Jessica Nelson MD Unavailable Sophia Monroe MD Unavailable [phone] Encounter Details Date Type Department Care Team (Late st Contact Info) Description 05/01/2024 Scanned Document [address] [address] Primary Care, Scan Social History [...] Description 07/05/2025 8:00 AM EST Office Visit [address] [address] Sophia Monroe MD [address] [place] [address] documented as of this encounter Visit Diagnoses Not on filedocumented in this encounter Care Teams Echocardiographer Relationship Specialty Start Date End Date Sophia Monroe MD [address] [place] [address] PCP - General Internal Medicine 01/16/24 Sophia Monroe MD [address] [place] [address] PCP - MSSP Attributed 06/13/24 Nahum Benavides MD [address] [place] [address] [address] [place] [address] Neurology 01/17/24 Cuba Claire MD 100 [facility] [address] [place] [address] Referring Provider 01/17/24 Alan Harris MD [address] [address] Referring Provider Surgery, Orthopedic 01/17/24 Jessica Nelson MD [address] [place] [address] [address] [place] [address] Cardiovascular Disease 04/03/24 documented as of this encounter
--- OUTSIDE RECORDS SUMMARY | 2025-02-08 08:40 | XMS_ITS | Clinical Summary ---
[facility] Organization [facility] Address [address] [place] [address] Care Team Providers Care Medical Engineer Name Role Phone Marilu Quesada Primary Care Provider [phone] Surgical History Surgery Date Site/Laterality Comments CHOLECYSTECTOMY PROCEDURE:CHOLECYSTECTOMY SHOULDER SURGERY Right PROCEDURE:SHOULDER SURGERY;COMMENT:2015 CARDIAC CATHETERIZATION 2013 PROCEDURE:CARDIAC CATHETERIZATION COLONOSCOPY PROCEDURE:COLONOSCOPY TOTAL HIP ARTHROPLASTY 12/11/2020 Right PROCEDURE:TOTAL HIP ARTHROPLASTY;COMMENT:Procedur e: REPLACEMENT TOTAL HIP; Surgeon: Gerson Schwartz MD; Location: [facility] Service: Orthopedics; Laterality: Right; TOTAL HIP ARTHROPLASTY 04/02/2021 Left PROCEDURE:TOTAL HIP ARTHROPLASTY;COMMENT:Procedur e: REPLACEMENT TOTAL HIP; Surgeon: Gerson Schwartz MD; Location: [facility]); Service: Orthopedics; Laterality: Left; REVISION TOTAL HIP CUP AND/O R STEM 04/11/2021 Left PROCEDURE:REVISION TOTAL HIP CUP AND/OR STEM;COMMENT:Procedure: REVISION TOTAL HIP COMPONENTS - PREIPROSTHETIC FRACTURE; Surgeon: Louie Benítez MD; Location: [facility]); Service: Orthopedics; Laterality: Left; TONSILLECTOMY PROCEDURE:TONSILLECTOMY;COMME NT:as a child REVISION TOTAL HIP CUP AND/O R STEM 07/08/2022 Left PROCEDURE:REVISION TOTAL HIP CUP AND/OR STEM;COMMENT:Procedure: REVISION TOTAL HIP COMPONENTS; Surgeon: Louie Benítez MD; Location: [facility]); Service: Orthopedics; Laterality: Left; Medical History Medical History Date Comments 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 [place] no stent thrombosis after this procedure Hypertension DX:Hypertension Lyme disease DX:Lyme disease Coronary artery disease DX:Coron sri artery disease;COMMENT:2013 Multiple sclerosis ([facility] V24, [facility] V28) DX:Multiple sclerosis (HCC) Gastroesophageal reflux dise [...] this topic Medical Devices Implanted Type Area Sales Account Associate Device Identifier Shelf Expiration Date Model / Serial / Lot Lp Hex Screw 6.5x30mm Stry-Howm 4780-2156-6311 78 Implanted:Qty: 1 on 12/11/2020 by Gerson Schwartz MD Right: Hip [employer] 05/27/2025 3486-2029 / / [id number] Tritanium Cluster Hole Shell 58mm Stry-How 225-57-98g-770 475 Implanted:Qty: 1 on 12/11/2020 by Gerson Schwartz MD Right: Hip [employer] 07/09/2025 702-04-58F / / [id number] Lp Hex Screw 6.5x25mm Stry-How 6980-1170-3149 58 Implanted:Qty: 1 on 12/11/2020 by Gerson Schwartz MD Right: Hip [employer] [facility] 08/29/2025 5580-7122 / / [id number] Lp Hex Screw 6.5x25mm Stry-Howm 0145-7339-2378 58 Implanted:Qty: 1 on 12/11/2020 by Gerson Schwartz MD Right: Hip [employer] [facility] 08/29/2025 9532-8893 / / [id number] Hip Insrt Poly X3 10deg 36mm Stry-Howm 030-04-77c-287 348 Implanted:Qty: 1 on 12/11/2020 by Gerson Schwartz MD Right: Hip [employer] [facility] 03/25/2025 623-10-36F / / [id number] Stem Hip Neck Angle 127 Degree Accolade Ii Sz6 - [id number] Implanted:Qty: 1 on 12/11/2020 by Gerson Schwartz MD Right: Hip [employer] [facility] 10/20/20251627-4778 / / [id number] Hip Head Delta Biolox 36mm -5 Stry-Howm 6390-1-647-549 190 Implanted:Qty: 1 on 12/11/2020 by Gerson Schwartz MD Right: Hip [employer] [facility] 09/19/2025 6570-0-036 / / [id number] Lp Hex Screw 6.5x20mm Stry-Howm 4222-6924-3729 57 Implanted:Qty: 1 on 04/02/2021 by Gerson Schwartz MD Left: Hip [employer] [facility] [id number] 10/15/2025 5487-1256 / / [id number] Hip Stem Accolade Ii Sz6 Stry-Howm 0019-6804-2792 19 Implanted:Qty: 1 on 04/02/2021 by Gerson Schwartz MD Left: Hip [employer] [id number] 01/15/20262122-1455 / / [id number] Tritanium Cluster Hole Shell 56mm Stry-Howm 428-61-37h-770 474 Implanted:Qty: 1 on 04/02/2021 by Gerson Schwartz MD Left: Hip [employer] [facility] [id number] 11/20/2025 702-04-56F / / [id number] Lp Hex Screw 6.5x30mm Stry-How 8100-1562-8816 78 Implanted:Qty: 1 on 04/02/2021 by Gerson Schwartz MD Left: Hip [employer] [facility] [id number] 11/03/2025 6450-8199 / / [id number] Hip Cabl Coblt Chrm 2mm W Clmp [facility]Or[facility] 03 Implanted:Qty: 1 on 04/11/2021 by Louie Benítez MD Left: Hip [employer] [facility] 09/30/20306924-6978 / / [id number] Hip Cabl Coblt Chrm 2mm W Clmp [facility]-Orth 03 Implanted:Qty: 1 on 04/11/2021 by Louie Benítez MD Left: Hip [employer] [facility] 05/15/2030 9014-9684 / / [id number] Hip Cabl Coblt Chrm 2mm W Clmp [facility]-Or[facility] 03 Implanted:Qty: 1 on 04/11/2021 by Louie Benítez MD Left: Hip [employer] [facility] 01/03/20310948-0745 / / [id number] Hip Cabl Coblt Chrm 2mm W Clmp [facility]-Or[facility] 03 Implanted:Qty: 1 on 04/11/2021 by Louie Benítez MD Left: Hip [employer] [facility] 01/03/20318212-3974 / / [id number] Slvls Monolithic Rev Flnx315oy Smn-Orth 23887032-70262 9 Implanted:Qty: 1 on 04/11/2021 by Louie Benítez MD Left: Hip [employer] [facility] 08/27/2028 [id number] / / [id number] Hip Hd Fem 12 14 36mm +4mm [facility]-Orth 2372-6004-8633 55 Implanted:Qty: 1 on 04/11/2021 by Louie Benítez MD Left: Hip [employer] [facility] 02/07/2031 4452-5312 / / [id number] Hip Hd Fem 12 14 Tapr 28mm +8 [facility]-Orth 7878-5300-3101 37 Implanted:Qty: 1 on 07/08/2022 by Louie Benítez MD Left: Hip [employer] [facility] 07/27/2031 1602-8471 / / [id number] 28mm Id, 46mm Od Dual Mobility Insert Xlpe Implanted:Qty: 1 on 07/08/2022 Left: Hip [employer] [facility] 11/25/2030 [id number] / / [id number] Hip Insrt Mod Dl Mobility 46mm [facility] 883-24-18t-551 384 Implanted:Qty: 1 on 07/08/2022 by Louie Benítez MD [employer] [facility] 626-00-46F / / Care Teams Medical Engineer Relationship Specialty Start Date End Date Marilu Quesada PA [address] [place] [address] PCP - General 07/08/22
--- OUTSIDE RECORDS SUMMARY | 2025-02-08 08:40 | XMS_ITS | Encounter Summary ---
Author Organization [facility] Address [address] [place] [address] Care Team Providers Care Supervisor Assembly And Packing Name Role Phone Sophia Monroe MD Primary Care Provider [phone] Nahum Benavides MD Unavailable Cuba Claire MD Unavailable [phone] Alan Harris MD Unavailable [phone] Jessica Nelson MD Unavailable [phone] Sophia Monroe MD Unavailable [phone] Encounter Details Date Type Department Care Team (Late st Contact Info) Description 03/02/2024 Scanned Document [facility] [address] [place] [address] Urology, Scan Social History Tobacco Use Types [...] Description 07/05/2025 8:00 AM EST Office Visit [address] [place] [address] Sophia Monroe MD [address] [place], [place] [address] documented as of this encounter Visit Diagnoses Not on filedocumented in this encounter Care Teams Supervisor Assembly And Packing Relationship Specialty Start Date End Date Sophia Monroe MD [address] [place], [place] [address] PCP - General Internal Medicine 01/16/24 Sophia Monroe MD [address] [place] [address] PCP - MSSP Attributed 06/13/24 Nahum Benavides MD [address] [place] [address] [address] [place] [address] Neurology 01/17/24 Cuba Claire MD 100 [facility] [address] [place] [address] Referring Provider 01/17/24 Alan Harris MD 125 [facility] [place] [address] Referring Provider Surgery, Orthopedic 01/17/24 Jessica Nelson MD [address] [place] [address] [place] [address] Cardiovascular Disease 04/03/24 documented as of this encounter
--- OUTSIDE RECORDS SUMMARY | 2025-02-08 08:41 | XMS_ITS | Encounter Summary ---
Author Organization [facility] Address [address] [place] [address] Care Team Providers Care Co Teacher Name Role Phone Sophia Monroe MD Primary Care Provider [phone] Nahum Benavides MD Unavailable Cuba Claire MD Unavailable [phone] Alan Harris MD Unavailable [phone] Jessica Nelson MD Unavailable [phone] Sophia Monroe MD Unavailable [phone] Encounter Details Date Type Department Care Team (Late st Contact Info) Description 01/20/2024 Scanned Document [facility] [address] [place] [address] Urology, Scan Social History Tobacco Use Types [...] Description 07/05/2025 8:00 AM EST Office Visit [address] [place] [address] Sophia Monroe MD [address] [place], [place] [address] documented as of this encounter Visit Diagnoses Not on filedocumented in this encounter Care Teams Co Teacher Relationship Specialty Start Date End Date Sophia Monroe MD [address] [place], [place] [address] PCP - General Internal Medicine 01/16/24 Sophia Monroe MD [address] [place] [address] PCP - MSSP Attributed 06/13/24 Nahum Benavides MD [address] [place] [address] [address] [place] [address] Neurology 01/17/24 Cuba Claire MD 100 [facility] 120 [place] [address] Referring Provider 01/17/24 Alan Harris MD [address] [facility] [address] [address] Referring Provider Surgery, Orthopedic 01/17/24 Jessica Nelson MD [address] [place] [address] [address] [place] [address] Cardiovascular Disease 04/03/24 documented as of this encounter
--- OUTSIDE RECORDS SUMMARY | 2025-02-08 08:41 | XMS_ITS | Clinical Summary ---
Author Organization [facility] Address [address] [place] [address] Care Team Providers Care Detective Bureau Chief Name Role Phone Sophia Monroe MD Primary Care Provider [phone] Nahum Benavides MD Unavailable Cuba Claire MD Unavailable [phone] Alan Harris MD Unavailable Jessica Nelson MD Unavailable [phone] Sophia Monroe MD Unavailable [phone] Allergies Active Allergy Reactions Criticality Noted [...] mL, 0 Refills, Maintenance, 03/11/23 15:04:00 EDT, [facility] [id number], 60, SPRAY 1 SPRAY INTO BOTH NARES [...] necessary) auto 5-15 cmH2O, EPR 3 multimedia assistant, heated humidification, heated tubing, AirFit N30 or patient preference, AiruMentioned data link to be active for indefinite [...] Date Type Department Care Team Description 01/30/[address] [address] Sophia Monroe MD Anxiety 01/03/2025 10:00 AM EDT Office Visit [address] [address] Sophia Monroe MD Routine medical exam (Primary Dx) 01/03/2025 Travel 11/20/2024 7:45 AM EDT Office Visit [address] [address] Merari Aly MD Diarrhea, unspecified type (Primary Dx) 11/20/2024 Travel 11/18/[address] [address] Sophia Monroe MD Primary hypertension from Last [...] drink = 0.6 oz pur e alcohol) Marginizeities Answer Date Recorded In the past 12 months has [employer], gas, oil, or water [employer] threatened to shut off services in your home? No 01/03/2025 Social Connection and Isolation Panel [NHANES] A nswer Date Recorded In a typical week, how many times do you talk on the phone with family, friends, or neighbors? Three times a week 01/03/2025 Frequency of Social Gatherin gs with Friends and Family Not on file 01/03/2025 Attends Evangelical Services Not on file 01/03 Active Member [...] any time in the past 12 m [facility], were you homeless or living in a halfway (including now)? No 01/03/2025 Education Answer Date [...] Description 07/05/2025 8:00 AM EST Office Visit [facility] [address] [place] [address] Sophia Monroe MD [address] [place] [address] Health Maintenance Due Date Last Done Comments Advance Care Planning 1950 Hepatitis C Virus Screening 1950 Annual Wellness [...] AM EDT) CAMPYLOBACTER SPP. AG,EIA SEE NOTE [facility] Comment: CAMPYLOBACTER SPP. AG,EIA Micro Number: [id number] Test Status: Final Specimen Source: Stool Specimen Quality: Adequate Campy Ag Result: Not Detected Reference Range: Not Detected E. coli Shiga Toxins SEE NOTE [facility] Comment: SHIGA TOXINS, EIA W/RFL TO E.COLI O157 CULTURE Micro Number: [id number] Test Status: Final Specimen Source: Stool Specimen Quality: Adequate Shiga Toxin: Not Detected Reference Range: Not Detected Salmonella/Shigel la Culture SEE NOTE [facility] Comment: SALMONELLA AND SHIGELLA, CULTURE Micro Number: [id number] Test Status: Final Specimen Source: Stool Specimen Quality: Adequate Result: No Salmonella or Shigella isolated 11/23/2024 9:30 AM EDT 11/23/2024 10:35 AM EDT Narrative [facility] - 12/05/2024 3:07 PM EDT SPLIT 11/20/2024 FROM [id number] FASTING:NO FASTING: NO Merari Aly MD LAB AMB FLUID/STOOL ORDERA BLES Final Result [facility] [address] [place] [phone] * C. Difficile Toxin B, QL Real Time PCR (11/23/2024 9:30 AM EDT) C. Difficile Toxin B, QL Real Time PCR NOT DETECTED NOT DETECTED [facility] Comment: This test is for use only with liquid or soft stools; performance characteristics of other clinical specimen types have not been established. This assay was performed by [employer] Gene[employer]pert(R) PCR. The performance characteristics of this assay have been determined by [employer]. Performance characteristics refer to the analytical performance of the test. For additional information, please refer to http://[employer]/faq/WEN365 (This link is being provided for informational/educational purposes only.) 11/23/2024 9:30 AM EDT 11/23/2024 10:35 AM EDT Narrative [facility] - 12/05/2024 3:07 PM EDT SPLIT 11/20/2024 FROM [id number] FASTING:NO FASTING: NO Merari Aly MD LAB AMB MICRO ORDERABLES F inal Result [facility] [address] [place] [phone] * O & P w/Giardia Antigen (11/23/2024 9:30 AM EDT) Giardia Ag, Stl SEE NOTE [facility] Comment: GIARDIA AG, EIA, STOOL Micro Number: [id number] Test Status: Final Specimen Source: Stool Specimen Quality: Adequate Giardia Result 1: Not Detected Reference Range: Not Detected NOTE: Due to intermittent shedding, one negative sample does not necessarily rule out the presence of a parasitic infection. Trichrome (1) SEE NOTE [facility] Comment: OVA AND PARASITES, CONC AND PERM SMEAR Micro Number: [id number] Test Status: Final Specimen Source: Stool Specimen [...] infection. For additional information, please refer to https://[employer]/faq/VVF331 (This link is being provided for informational/ educational purposes only.) Stool 11/23/2024 9:30 AM EDT 11/23/2024 10:35 AM EDT Narrative [facility] - 12/05/2024 3:07 PM EDT SPLIT 11/20/2024 FROM [id number] FASTING:NO FASTING: NO Merari Aly MD LAB AMB MICRO ORDERABLES F inal Result Performing Organization Address [facility] de Phone Number [facility] [address] [place] [phone] * Stool Culture, R/O E. coli 0157 (11/23/2024 9:30 AM EDT) Pathologist [facility] Culture, Ecoli 0157:H7 SEE NOTE [facility] Comment: ESCHERICHIA COLI O157, CULTURE Micro Number: [id number] Test Status: Final Specimen Source: Stool Specimen Quality: Adequate Result: No Escherichia coli O157 isolated NOTE: E. coli other than O157 may produce Shiga toxin. 11/23/2024 9:30 AM EDT 11/23/2024 10:35 AM EDT Narrative [facility] - 12/05/2024 3:07 PM EDT SPLIT 11/20/2024 FROM [id number] FASTING:NO FASTING: NO Merari Aly MD LAB AMB MICRO ORDERABLES F inal Result Performing Organization Address [facility] de Phone Number [facility] [address] [place] [phone] * (ABNORMAL) Complete Blood Count, with Differential (11/20/2024 12:43 PM EDT) White Blood Cell Count 6.2 3.8 - 10.8 Thousand/ uL [facility] [employer] Red Blood Cell Count 4.86 4.20 - 5.80 Million/u L [facility] [employer] Hemoglobin 13.4 13.2 - 17.1 g/dL [facility] Hematocrit 43.6 38.5 - 50.0 % [facility] [employer] MCV 89.7 80.0 - 100.0 fL [facility] [employer] MCH 27.6 27.0 - 33.0 pg [facility] MCHC 30.7(L) 32.0 - 36.0 g/dL [facility] Comment: For adults, a slight decrease in the calculated MCHC value (in the range of 30 to 32 g/dL) is most likely not clinically significant; however, it should be interpreted with caution in correlation with other red cell parameters and the patient's clinical condition. RDW 12.5 11.0 - 15.0 % [facility] Platelet Count 258 140 - 400 Thousand/ uL [facility] MPV 10.6 7.5 - 12.5 fL [facility] Abs Neutrophils Auto 3,956 1,500 - 7,800 cells/uL [facility] Abs Lymphocytes Auto 1,414 850 - 3,900 cells/uL [facility] Abs Monocytes Auto 657 200 - 950 cells/uL [facility] Abs Eosinophils Auto 143 15 - 500 cells/uL [facility] Abs Basophils Auto 31 0 - 200 cells/uL [facility] Neutrophils Auto 63.8 % [facility] Lymphocytes Auto 22.8 % [facility] Monocytes Auto 10.6 % [facility] Eosinophils Auto 2.3 % [facility] Basophils Auto 0.5 % [facility] Blood specimen / Unknown 11/20/2024 12:43 PM EDT 11/20/2024 12:50 PM EDT Narrative [facility] - 11/21/2024 9:52 AM EDT FASTING:NO COLLECTION KIT GIVEN TO PATIENT. PATIENT ADVISED TO RETURN. FASTING: NO us Merari Aly MD LAB BLOOD ORDERABLES Final Result [facility] [address] [place] [phone] * (ABNORMAL) Comprehensive Metabolic Panel (11/20/2024 12:43 PM EDT) [facility] Glucose 82 65 - 99 mg/dL [facility] Comment: Fasting reference interval Blood Urea Nitrogen (BUN) 28(H) 7 - 25 mg/dL [facility] Creatinine 1.33(H) 0.70 - 1.28 mg/dL [facility] Creatinine w/ eGFR 56(L) > OR = 60 mL/min/1. 73m2 [facility] BUN/Creatinine Ratio 21 6 - 22 (calc) [facility] Sodium 139 135 - 146 mmol/L [facility] Potassium 4.2 3.5 - 5.3 mmol/L [facility] Chloride 106 98 - 110 mmol/L [facility] CO2 26 20 - 32 mmol/L [facility] Calcium 9.0 8.6 - 10.3 mg/dL [facility] Protein, Total 6.3 6.1 - 8.1 g/dL [facility] Albumin 4.0 3.6 - 5.1 g/dL [facility] Globulin 2.3 1.9 - 3.7 g/dL (calc) [facility] Albumin/Globulin Ratio 1.7 1.0 - 2.5 (calc) [facility] Bilirubin, Total 0.4 0.2 - 1.2 mg/dL [facility] Alkaline Phosphatase 64 35 - 144 U/L [facility] Aspartate Aminotrans (AST) 40(H) 10 - 35 U/L [facility] Alanine Aminotrans (ALT) 30 9 - 46 U/L [facility] Blood Blood specimen / Unknown 11/20/2024 12:43 PM EDT 11/20/2024 12:50 PM EDT Narrative [facility] - 11/21/2024 9:52 AM EDT FASTING:NO COLLECTION KIT GIVEN TO PATIENT. PATIENT ADVISED TO RETURN. FASTING: NO us Merari Aly MD LAB BLOOD ORDERABLES Final Result [facility] [address] [place] [phone] from Last 3 Months Insurance MEDICARE PART A & B BLUE [place] OUT [facility] Care Teams Detective Bureau Chief Relationship Specialty Start Date End Date Sophia Monroe MD [address] [place] [address] PCP - General Internal Medicine 01/16/24 Sophia Monroe MD [address] [place] [address] PCP - MSSP Attributed 06/13/24 Nahum Benavides MD [address] [place] [address] [address] [place] [address] Neurology 01/17/24 Cuba Claire MD [address] [place] [address] [address] [place] [address] Referring Provider 01/17/24 Alan Harris MD [address] [place] [address] Referring Provider Surgery, Orthopedic 01/17/24 Jessiac Nelson MD [address] [place] [address] Cardiovascular Disease 04/03/24
--- OUTSIDE RECORDS SUMMARY | 2025-02-08 08:41 | XMS_ITS | Encounter Summary ---
Author Organization [facility] Address [address] [place] [address] Care Team Providers Care Medical Receptionist Assistant Name Role Phone Sophia Monroe MD Primary Care Provider [phone] Nahum Benavides MD Unavailable Cuba Claire MD Unavailable [phone] Alan Harris MD Unavailable [phone] Jessica Nelson MD Unavailable [phone] Sophia Monroe MD Unavailable [phone] Encounter Details Date Type Department Care Team (Late st Contact Info) Description 10/22/2024 Scanned Document [facility] [address] [place] [address] Urology, Scan Social History Tobacco Use Types [...] Description 07/05/2025 8:00 AM EST Office Visit [address] [place] [phone] Sophia Monroe MD [address] [place], [place] [address] documented as of this encounter Visit Diagnoses Not on filedocumented in this encounter Care Teams Medical Receptionist Assistant Relationship Specialty Start Date End Date Sophia Monroe MD [address] [place], [place] [address] PCP - General Internal Medicine 01/16/24 Sophia Monroe MD [address] [place] [address] PCP - MSSP Attributed 06/13/24 Nahum Benavides MD [address] [place] [address] [address] [place] [address] Neurology 01/17/24 Cuba Claire MD 100 [facility] [address] [place] [address] Referring Provider 01/17/24 Alan Harris MD [address] [facility] [address] [address] Referring Provider Surgery, Orthopedic 01/17/24 Jessica Nelson MD [address] [place] [address] [place] [address] Cardiovascular Disease 04/03/24 documented as of this encounter
--- OUTSIDE RECORDS SUMMARY | 2025-02-08 08:41 | XMS_ITS | Encounter Summary ---
Author Organization [facility] Address [address] [place] [address] Care Team Providers Care Senior Financial Name Role Phone Sophia Monroe MD Primary Care Provider Nahum Benavides MD Unavailable Cuba lCaire MD Unavailable Alan Harris MD Unavailable [phone] Jessica Nelson MD Unavailable [phone] Sophia Monroe MD Unavailable [phone] Encounter Details Date Type Department Care Team (Late st Contact Info) Description 01/25/[address] [address] Sophia Monroe MD [address] [place], [place] [id number] Social History Tobacco Use Types Packs/Day Years [...] Description 07/05/2025 8:00 AM EST Office Visit [facility] 100 [facility] [address] [place] [address] Sophia Monroe MD [address] [place] [address] documented as of this encounter Visit Diagnoses Not on filedocumented in this encounter Care Teams Senior Financial Relationship Specialty Start Date End Date Sophia Monroe MD [address] [place] [address] PCP - General Internal Medicine 01/16/24 Sophia Monroe MD [address] [place] [address] PCP - MSSP Attributed 06/13/24 Nahum Benavides MD [address] [place] [address] [address] [place] [address] Neurology 01/17/24 Cuba Claire MD 100 [facility] 120 [place] [address] Referring Provider 01/17/24 Alan Harris MD [address] [place] [address] [address] Referring Provider Surgery, Orthopedic 01/17/24 Jessica Nelson MD [address] [place] [address] [place] [address] Cardiovascular Disease 04/03/24 documented as of this encounter
--- OUTSIDE RECORDS SUMMARY | 2025-02-08 08:41 | XMS_ITS | Encounter Summary ---
Author Organization [facility] Address [address] [place] [address] Care Team Providers Care Storage Battery Inspector Name Role Phone Sophia Monroe MD Primary Care Provider Nahum Benavides MD Unavailable Cuba Claire MD Unavailable Alan Harris MD Unavailable [phone] Jessica Nelson MD Unavailable [phone] Sophia Monroe MD Unavailable [phone] Encounter Details Date Type Department Care Team (Late st Contact Info) Description 08/22/2024 Scanned Document [address] [phone] Kelsi Bonner MD [address] [place] [id number] Social History Tobacco Use Types Packs/Day [...] Description 07/05/2025 8:00 AM EST Office Visit [facility] 100 [facility] [address] [place] [address] Sophia Monroe MD [address] [place] [address] documented as of this encounter Visit Diagnoses Not on filedocumented in this encounter Care Teams Storage Battery Inspector Relationship Specialty Start Date End Date Sophia Monroe MD [address] [place] [address] PCP - General Internal Medicine 01/16/24 Sophia Monroe MD [address] [place] [address] PCP - MSSP Attributed 06/13/24 Nahum Benavides MD [address] [place] [address] [address] [place] [address] Neurology 01/17/24 Cuba Claire MD 100 [facility] 120 [place] [address] Referring Provider 01/17/24 Alan Harris MD [address] [place] [address] Referring Provider Surgery, Orthopedic 01/17/24 Jessica Nelson MD [address] [place] [address] [place] [address] Cardiovascular Disease 04/03/24 documented as of this encounter
--- OUTSIDE RECORDS SUMMARY | 2025-02-08 08:41 | XMS_ITS | Encounter Summary ---
Author Organization [facility] Address [address] [place] [address] Care Team Providers Care Foam Dispenser Name Role Phone Sophia Monroe MD Primary Care Provider Nahum Benavides MD Unavailable Cuba Claire MD Unavailable [phone] Alan Harris MD Unavailable [phone] Jessica Nelson MD Unavailable [phone] Sophia Monroe MD Unavailable [phone] Encounter Details Date Type Department Care Team (Late st Contact Info) Description 07/23/2024 Scanned Document [address] [phone] Kelsi Bonner MD [address] [place] [address] Social History Tobacco Use Types Packs/Day [...] Description 07/05/2025 8:00 AM EST Office Visit [facility] 100 [facility] [address] [place] [address] Sophia Monroe MD [address] [place] [address] documented as of this encounter Visit Diagnoses Not on filedocumented in this encounter Care Teams Foam Dispenser Relationship Specialty Start Date End Date Sophia Monroe MD [address] [place] [address] PCP - General Internal Medicine 01/16/24 Sophia Monroe MD [address] [place] [address] PCP - MSSP Attributed 06/13/24 Nahum Benavides MD [address] [place] [address] 503 [place] [address] Neurology 01/17/24 Cuba Claire MD 100 [facility] 120 [place] [address] Referring Provider 01/17/24 Alan Harris MD [address] [place] [address] Referring Provider Surgery, Orthopedic 01/17/24 Jessica Nelson MD [address] [place] [address] [place] [address] Cardiovascular Disease 04/03/24 documented as of this encounter
--- OUTSIDE RECORDS SUMMARY | 2025-02-08 08:41 | XMS_ITS | Clinical Summary ---
Author Organization [facility] [place] [address] Care Team Providers Care Inside Sales Account Manager Name Role Phone None Primary Care Provider Unavailabl e Allergies Active Allergy Reactions Criticality Noted Date Comments Metoprolol Hives 10/24/2022 Unclassified Drug 10/24/2022 Bee stings Medications No known medications Active Problems Problem Noted Date Diagnosed Date Coronary arteriosclerosis 10/24/2022 Depressive disorder 10/24/2022 Hyperlipidemia 10/24/2022 Hypertensive disorder 10/24/2022 Social History Tobacco Use Types Packs/Day Years Used Date Smoking Tobacco: Never Assessed Tobacco Cessation:Counseling Given: Not Answered DH IPV Inpatient Questions Answer Date Recorded Does Anyone Try to Keep You From Having Contact with Others or Doing Things Outside Your Home? no 10/24/2022 Feels Threatened by Someone no 10/11 Feels Unsafe at Home or Work/School no 10/24/2022 Physical Signs of Abuse Present no 10/24/2022 Sex and Gender Information Value Date Recorded Sex Assigned at Not on file Legal Sex Male 2:54 PM EDT Gender Identity Not on file Sexual Orientation Not on file Last Filed Vital Signs Vital Sign Reading Time Taken Comments Blood Pressure 161/81 10/24/2022 6:45 PM EDT Pulse 50 10/24/2022 6:45 PM EDT Temperature 36.3 C (97.3 F) 10/24/2022 3:03 PM EDT Respiratory Rate 19 10/24/2022 6:45 PM EDT Oxygen Saturation 97% 10/24/2022 6:45 PM EDT Inhaled Oxygen Concentration - - Weight 106.6 kg (235 lb) 10/24/2022 3:03 PM EDT Height 170.2 cm (5' 7 ) 10/24/2022 3:03 PM EDT Body Mass Index 36.81 10/24/2022 3:03 PM EDT Plan of Treatment Health Maintenance Due Date Last Done Comments CT Colonography 1950 Colonoscopy 1950 Colorectal Cancer Screening 1950 FIT DNA 1950 FIT 1950 Sigmoidoscopy (10 year) with FIT yearly 1950 Sigmoidoscopy 1950 Hepatitis C Screening 1969 Lipid Screening 1969 Pneumoccocal Vaccine: 50+ (1 of 2 - PCV) 1970 Tetanus/Diphtheria/Pertussis Vaccines (1 - Tdap) 06/09 Zoster vaccine (1 of 2) 2001 Advance Directive 2006 RSV Vaccine (1 - Risk 60-74 years 1-dose series) 06/09 Covid-19 Vaccine (1 - 2023- season) 2024 Influenza (Flu) vaccine (1 o f 1 - Influenza standard series) 02/11/2025 Insurance [facility] MEDICARE Care Teams Inside Sales Account Manager Relationship Specialty Start Date End Date None None PCP - General 10/24/22
== END 2025-02-07 08:08 | disposition home or self-care (01) ==
LOC: HO.HOSX 08:07
PROVIDERS: Visit Provider Physician Assistant
DX: S52.121A Displaced fracture of head of right radius, initial encounter for closed fracture (principal); W01.0XXA Fall on same level from slipping, tripping and stumbling without subsequent striking against object, initial encounter; Y93.E5 Activity, floor mopping and cleaning; Y92.094 Garage of other non-institutional residence as the place of occurrence of the external cause
CPT/HCPCS: 73080; 99212

== ENCOUNTER 2025-02-07 14:17 | Outpatient (AMB) | payer MEDICARE, SELFPAY ==
--- NOTE | 2025-02-07 14:41 | A.OFFVIS_ITS ---
Vital Signs 02/07/25 14:42 Height 5 ft 7 in Weight 240 lb BMI 37.6 Intake Visit Reasons: OV Right radial head fx DOI 10/19/24 Intake Note: Hernesto is a 74 year old right hand dominant male who presents today for a follow up s/p Right Radial Head Fracture, DOI 10/19/24.Patient states injury occurred while he was cleaning in the garage and tripped over an item on the evert or and landed on his elbow. Patient is having an increase in pain and ROM is limited he has tried tylenol for pain and it provided minimal relief. Allergies metoprolol Allergy (Verified 12/25/24 08:36) Hives bee sting Allergy (Uncoded 12/25/24 08:36) Swelling HPI HPI OV Right radial head fx DOI 10/19/24: Details: Mr. Toro 74-year-old right-hand dominant male who presents to the office today status post right radial head fracture that he sustained on 10/19/2024. Mechanism of injury was falling directly onto the elbow after a mechanical fall tripping over a box in his garage. Since his date of injury the goal has been to manage this nonoperatively. However early on the patient was perhaps a bit overactive hindering the healing process. He reports that he continues to have discomfort with certain motions. He is unable to definitively described what motions increase his pain. He states that it could be with pronation supination but also a flexion and extension at times. [facility], [facility] Social History Alcohol intake: never Patient Tobacco Use Status: Never used Tobacco Current occupational status: retired Current occupation: right hand dominant Review of Systems Const All systems reviewed & are unremarkable except as noted in HPI and below Physical Exam Vital Signs: BMI result Body Mass Index 37.6 Const General: cooperative, healthy appearing and no acute distress Resp Effort & Inspection: normal respiratory effort and able to speak in complete sentences Extrem Other: Right elbow lacking roughly 10 degrees of full extension. Able to perform full flexion. Slight tenderness to palpation over the radial head. Able to perform pronation supination to end range with no pain and no evidence of mechanical blockage or subluxation. Sensation intact. Assessment & Plan Assessment & Plan (1) Right radial head fracture: Code(s): S52.121A - Displaced fracture of head of right radius, initial encounter for closed fracture Category: Medical Plan Mr. Toro 74-year-old right-hand dominant male who presents to the office today status post right radial head fracture that he sustained on 10/19/2024. Mechanism of injury was falling directly onto the elbow after a mechanical fall tripping over a box in his garage. Since his date of injury the goal has been to manage this nonoperatively. However early on the patient was perhaps a bit overactive hindering the healing process. He reports that he continues to have discomfort with certain motions. He is unable to definitively described what motions increase his pain. He states that it could be with pronation supination but also a flexion and extension at times. While in the office today, Dr. Acevedo was available but did not see the patient with me. We discussed a collaborative treatment plan moving forward for this patient as he continues to have pain and difficulty with range of motion at times. A CT scan has been ordered to further evaluate the integrity of the right elbow and surrounding structures. The patient will follow up with Dr. Acevedo after the CT scan is obtained, sooner if needed. X-rays of the right elbow which were obtained while in the office today and were reviewed by me, Elayne Marcos PA-C, revealed continued demonstration of comminuted intra-articular lateral radial head fracture. Orders: Orders CT elbow RT wo IV con Today S52.121A - Displaced fracture of head of right radius, initial encounter for closed fracture XR elbow RT min 3V Today M25.529 - Pain in unspecified elbow Coding Level of Care Code Est Pt Level 3 (09034) Diagnoses Right radial head fracture S52.121A
[2025-02-07 14:42] VITALS: BMI 37.6
--- OUTSIDE RECORDS SUMMARY | 2025-02-07 15:06 | XMS_ITS | Clinical Summary ---
Author Organization [facility] Address [address] [place] [address] Care Team Providers Care Director Child Name Role Phone Marilu Quesada PA-C Primary Care Provider [phone] Allergies Active Allergy Reactions Criticality Noted Date [...] this topic Medical Devices Implanted Type Area Sample Prep Technician Device Identifier Shelf Expiration Date Model / Serial / Lot Lp Hex Screw 6.5x30mm Stry-Howm [id number] 78 - [id number] Implanted:Qty: 1 on 12/11/2020 by Gerson Schwartz MD at [facility] Right: Hip [employer] 05/27/2025 2911-2468 / / [id number] Tritanium Cluster Hole Shell 58mm Stry-Howm 059-84-27b-770 475 - [id number] Implanted:Qty: 1 on 12/11/2020 by Gerson Schwartz MD at [facility] and Med Right: Hip [employer] 07/09/2025 702-04-58F / / [id number] Lp Hex Screw 6.5x25mm Stry-Howm 0631-8384-2887 58 - [id number] Implanted:Qty: 1 on 12/11/2020 by Gerson Schwartz MD at [facility] and Med Right: Hip [employer] 08/29/2025 3894-7237 / / [id number] Lp Hex Screw 6.5x25mm Stry-Howm 0128-9359-1718 58 - [id number] Implanted:Qty: 1 on 12/11/2020 by Gerson Schwartz MD at [facility] and Med Right: Hip [employer] 08/29/2025 3544-1555 / / [id number] Hip Insrt Poly X3 10deg 36mm Stry-Howm 447-62-36z-287 348 - [id number] Implanted:Qty: 1 on 12/11/2020 by Gerson Schwartz MD at [facility] and Med Right: Hip [employer] 03/25/2025 623-10-36F / / [id number] Stem Hip Neck Angle 127 Degree Accolade Ii Sz6 - [id number] - [id number] Implanted:Qty: 1 on 12/11/2020 by Gerson Schwartz MD at [facility] and Med Right: Hip [employer] [facility] 10/20/20257172-2295 / / [id number] Hip Head Delta [employer]ox 36mm -5 Stry-Howm 8569-5-709-549 190 - [id number] Implanted:Qty: 1 on 12/11/2020 by Gerson Schwartz MD at [facility] and Med Right: Hip [employer] 09/19/2025 6570-0-036 / / [id number] Lp Hex Screw 6.5x20mm Stry-Howm 2322-5530-8098 57 - [id number] Implanted:Qty: 1 on 04/02/2021 by Gerson Schwartz MD at [facility] and Med Left: Hip [employer] [facility] [id number] 10/15/2025 2346-5778 / / [id number] Hip Stem Accolade Ii Sz6 Stry-Howm 7277-4740-8102 19 - [id number] Implanted:Qty: 1 on 04/02/2021 by Gerson Schwartz MD at [facility] and Med Left: Hip [employer] [id number] 01/15/202667208437-9511 / / [id number] Tritanium Cluster Hole Shell 56mm Stry-Howm 895-72-15h-770 474 - [id number] Implanted:Qty: 1 on 04/02/2021 by Gerson Schwartz MD at [facility] and Med Left: Hip [employer] [facility] [id number] 11/20/2025 702-04-56F / / [id number] Lp Hex Screw 6.5x30mm Stry-Howm 2291-7932-2427 78 - [id number] Implanted:Qty: 1 on 04/02/2021 by Gerson Schwartz MD at [facility] and Med Left: Hip [employer] [id number] 11/03/2025 2904-9875 / / [id number] Hip Cabl Coblt Chrm [facility] 03 - [id number] Implanted:Qty: 1 on 04/11/2021 by Louie Benítez MD at [facility] Left: Hip [employer] [facility] 09/30/20305384-3641 / / [id number] Hip Cabl Coblt Chrm 2mm W Clmp [facility]-Or[facility] 03 - [id number] Implanted:Qty: 1 on 04/11/2021 by Louie Benítez MD at [facility] Left: Hip [employer] [facility] 05/15/2030 9359-5435 / / [id number] Hip Cabl Coblt Chrm 2mm W Clmp [facility] 03 - [id number] Implanted:Qty: 1 on 04/11/2021 by Louie Benítez MD at [facility] Left: Hip [employer] 01/03/20316314-5915 / / [id number] Hip Cabl Coblt Chrm 2mm W Clmp [facility] 03 - [id number] Implanted:Qty: 1 on 04/11/2021 by Louie Benítez MD at [facility] Left: Hip [employer] 01/03/20312655-2370 / / [id number] Slvls Monolithic Rev [id number] Smn-Orth 65579875-30149 9 - [id number] Implanted:Qty: 1 on 04/11/2021 by Louie Benítez MD at [facility] Left: Hip [employer] 08/27/2028 [id number] / / [id number] Hip Hd Fem 12 14 36mm +4mm [facility]-Or[facility] 3053-1282-9299 55 - [id number] Implanted:Qty: 1 on 04/11/2021 by Louie Benítez MD at [facility] Left: Hip [employer] 02/07/2031 2055-0947 / / [id number] Hip Hd Fem 12 14 Tapr 28mm +8 [facility]-Orth 2252-3772-2848 37 - [id number] Implanted:Qty: 1 on 07/08/2022 by Louie Benítez MD at [facility] Left: Hip [employer] 07/27/2031 9323-0014 / / [id number] 28mm Id, 46mm Od Dual Mobility Insert Xlpe Implanted:Qty: 1 on 07/08/2022 at [facility] Left: Hip [employer] 11/25/2030 [id number] / / [id number] Hip Insrt Mod Dl Mobility 46mm Stry-Howm 018-28-80c-551 384 - [id number] Implanted:Qty: 1 on 07/08/2022 by Louie Benítez MD at [facility] [employer] [facility] 626-00-46F / / Explanted Type Area Sample Prep Technician Device Identifier Shelf Expiration Date Model / Serial / Lot Hip Insrt Poly X3 10deg 36mm Stry-Howm 166-57-97g-[id number] 348 - [id number] Implanted:Qty: 1 on 04/02/2021 by Gerson Schwartz MD at [facility] and Med Explanted:Qty: 1 on 07/08/2022 at [facility] Left: Hip [employer] [id number] 08/11/2024 623-10-36F / / [id number] Hip Head Delta Biolox 36mm -5 Stry-Howm 2718-1-258-549 190 - [id number] Implanted:Qty: 1 on 04/02/2021 by Gerson Schwartz MD at [facility] and Med Explanted:Qty: 1 on 07/08/2022 at [facility] Left: Hip [employer] [id number] 02/01/2026 6570-0-036 / / [id number] 6.5mm Low Profile Hex Screw Explanted:Qty: 1 on 07/08/2022 at [facility] and [facility] [employer] 05/03/2027 5181-4497 / / [id number] Description:Not implanted, u sed to remove previous implanted liner Advance Directives For more information, please contact: [phone] Latest Code Status on File Code Status [...] way: discussion with patient . Care Teams Director Child Relationship Specialty Start Date End Date Marilu Quesada PA-C PCP - General Medical Services 07/08/22
--- OUTSIDE RECORDS SUMMARY | 2025-02-07 15:06 | XMS_ITS | Encounter Summary ---
Author Organization [facility] Address [address] [place] [address] Care Team Providers Care Piggery Worker Name Role Phone Sophia Monroe MD Primary Care Provider [phone] Nahum Benavides MD Unavailable Cuba Claire MD Unavailable [phone] Alan Harris MD Unavailable [phone] Jessica Nelson MD Unavailable [phone] Sophia Monroe MD Unavailable [phone] Encounter Details Date Type Department Care Team (Late st Contact Info) Description 05/01/2024 Scanned Document [address] [address] Primary Care, Scan Social History [...] Care Team (Late st Contact Info) Description 07/05/2025 8:00 AM EST Office Visit [address] [address] Sophia Monroe MD [address] [place] [address] documented as of this encounter Visit Diagnoses Not on filedocumented in this encounter Care Teams Piggery Worker Relationship Specialty Start Date End Date Sophia Monroe MD [address] [place] [address] PCP - General Internal Medicine 01/16/24 Sophia Monroe MD [address] [place] [address] PCP - MSSP Attributed 06/13/24 Nahum Benavides MD [address] [place] [address] [address] [place] [address] Neurology 01/17/24 Cuba Claire MD 100 [facility] [address] [place] [address] Referring Provider 01/17/24 Alan Harris MD [address] [address] Referring Provider Surgery, Orthopedic 01/17/24 Jessica Nelson MD [address] [place] [address] [address] [place] [address] Cardiovascular Disease 04/03/24 documented as of this encounter
--- OUTSIDE RECORDS SUMMARY | 2025-02-07 15:06 | XMS_ITS | Encounter Summary ---
Author Organization [facility] Address [address] [place] [address] Care Team Providers Care Warper Tender Name Role Phone Sophia Monroe MD Primary Care Provider [phone] Nahum Benavides MD Unavailable Cuba Claire MD Unavailable [phone] Alan Harris MD Unavailable [phone] Jessica Nelson MD Unavailable [phone] Sophia Monroe MD Unavailable [phone] Encounter Details Date Type Department Care Team (Late st Contact Info) Description 03/02/2024 Scanned Document [facility] [address] [place] [address] Urology, Scan Social History Tobacco Use Types [...] Description 07/05/2025 8:00 AM EST Office Visit [address] [place] [address] Sophia Monroe MD [address] [place], [place] [address] documented as of this encounter Visit Diagnoses Not on filedocumented in this encounter Care Teams Warper Tender Relationship Specialty Start Date End Date Sophia Monroe MD [address] [place], [place] [address] PCP - General Internal Medicine 01/16/24 Sophia Monroe MD [address] [place] [address] PCP - MSSP Attributed 06/13/24 Nahum Benavides MD [address] [place] [address] [address] [place] [address] Neurology 01/17/24 Cuba Claire MD 100 [facility] [address] [place] [address] Referring Provider 01/17/24 Alan Harris MD [facility] [place] [address] Referring Provider Surgery, Orthopedic 01/17/24 Jessica Nelson MD [address] [place] [address] [address] [place] [address] Cardiovascular Disease 04/03/24 documented as of this encounter
--- OUTSIDE RECORDS SUMMARY | 2025-02-07 15:06 | XMS_ITS | Clinical Summary ---
Author Organization [facility] Address [address] [place] [address] Care Team Providers Care District Captain Name Role Phone Marilu Quesada Primary Care Provider [phone] Surgical History Surgery Date Site/Laterality Comments CHOLECYSTECTOMY PROCEDURE:CHOLECYSTECTOMY SHOULDER SURGERY Right PROCEDURE:SHOULDER SURGERY;COMMENT:2015 CARDIAC CATHETERIZATION 2013 PROCEDURE:CARDIAC CATHETERIZATION COLONOSCOPY PROCEDURE:COLONOSCOPY TOTAL HIP ARTHROPLASTY 12/11/2020 Right PROCEDURE:TOTAL HIP ARTHROPLASTY;COMMENT:Procedur e: REPLACEMENT TOTAL HIP; Surgeon: Gerson Schwartz MD; Location: [facility] ([facility] Service: Orthopedics; Laterality: Right; TOTAL HIP ARTHROPLASTY 04/02/2021 Left PROCEDURE:TOTAL HIP ARTHROPLASTY;COMMENT:Procedur e: REPLACEMENT TOTAL HIP; Surgeon: Gerson Schwartz MD; Location: [facility] [place] ([facility]); Service: Orthopedics; Laterality: Left; REVISION TOTAL HIP CUP AND/O R STEM 04/11/2021 Left PROCEDURE:REVISION TOTAL HIP CUP AND/OR STEM;COMMENT:Procedure: REVISION TOTAL HIP COMPONENTS - PREIPROSTHETIC FRACTURE; Surgeon: Louie Benítez MD; Location: [facility] [place] ([facility]); Service: Orthopedics; Laterality: Left; TONSILLECTOMY PROCEDURE:TONSILLECTOMY;COMME NT:as a child REVISION TOTAL HIP CUP AND/O R STEM 07/08/2022 Left PROCEDURE:REVISION TOTAL HIP CUP AND/OR STEM;COMMENT:Procedure: REVISION TOTAL HIP COMPONENTS; Surgeon: Louie Benítez MD; Location: 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 [employer] no stent thrombosis after this procedure Hypertension DX:Hypertension Lyme disease DX:Lyme disease Coronary artery disease DX:Coron sri artery disease;COMMENT:2013 Multiple sclerosis ([facility] V24, [facility] V28) DX:Multiple sclerosis (HCC) [...] Panel) 05/16/2022 Colorectal Cancer Screening: Colonoscopy 05/16/2022 Falls Risk Assessment 05/16/2022 Hepatitis C Screening 05/16/2022 Social Influencers of Health Screening 05/16/2022 COVID-19 Vaccine ( season) 2024 02/26/2022, 09/17/2021, 10/08/2020, Additional history exists Depression Screening 06/13/2024 Influenza Vaccine (#1) 2025 HIB Vaccines Aged [...] this topic Medical Devices Implanted Type Area Healthcare Science Specialist Device Identifier Shelf Expiration Date Model / Serial / Lot Lp Hex Screw 6.5x30mm Stry-Howm [id number] Implanted:Qty: 1 on 12/11/2020 by Gerson Schwartz MD Right: Hip [employer] 05/27/2025 5801-7432 / / [id number] Tritanium Cluster Hole Shell 58mm Stry-How [id number] 475 Implanted:Qty: 1 on 12/11/2020 by Gerson Schwartz MD Right: Hip [employer] 07/09/2025 702-04-58F / / [id number] Lp Hex Screw 6.5x25mm Stry-How [id number] 58 Implanted:Qty: 1 on 12/11/2020 by Gerson Schwartz MD Right: Hip [employer] 08/29/2025 1897-9330 / / [id number] Lp Hex Screw 6.5x25mm Stry-Howm [id number] 58 Implanted:Qty: 1 on 12/11/2020 by Gerson Schwartz MD Right: Hip [employer] 08/29/2025 5626-9095 / / [id number] Hip Insrt Poly X3 10deg 36mm Stry-Howm [id number]-[id number] 348 Implanted:Qty: 1 on 12/11/2020 by Gerson Schwartz MD Right: Hip [employer] 03/25/2025 623-10-36F / / [id number] Stem Hip Neck Angle 127 Degree Accolade Ii Sz6 - [id number] Implanted:Qty: 1 on 12/11/2020 by Gerson Schwartz MD Right: Hip [employer] 10/20/20253651-9863 / / [id number] Hip Head Delta Biolox 36mm -5 Stry-Howm 6840-7-226-549 190 Implanted:Qty: 1 on 12/11/2020 by Gerson Schwartz MD Right: Hip [employer] 09/19/2025 6570-0-036 / / [id number] Lp Hex Screw 6.5x20mm Stry-Howm [id number] 57 Implanted:Qty: 1 on 04/02/2021 by Gerson Schwartz MD Left: Hip [employer] [id number] 10/15/2025 6737-9703 / / [id number] Hip Stem Accolade Ii Sz6 Stry-Howm 7498-7949-7081 19 Implanted:Qty: 1 on 04/02/2021 by Gerson Schwartz MD Left: Hip [employer] [id number] 01/15/20266183-3717 / / [id number] Tritanium Cluster Hole Shell 56mm Stry-Howm [id number]-770 474 Implanted:Qty: 1 on 04/02/2021 by Gerson Schwartz MD Left: Hip [employer] [id number] 11/20/2025 702-04-56F / / [id number] Lp Hex Screw 6.5x30mm Stry-How 1388-7192-3962 78 Implanted:Qty: 1 on 04/02/2021 by Gerson Schwartz MD Left: Hip [employer] [id number] 11/03/2025 8184-3837 / / [id number] Hip Cabl Coblt Chrm 2mm W Clmp Smn-Orth 03 Implanted:Qty: 1 on 04/11/2021 by Louie Benítez MD Left: Hip [employer] 09/30/20305388-5171 / / [id number] Hip Cabl Coblt Chrm 2mm W Clmp Smn-Orth 03 Implanted:Qty: 1 on 04/11/2021 by Louie Benítez MD Left: Hip [employer] 05/15/2030 6211-2843 / / [id number] Hip Cabl Coblt Chrm 2mm W Clmp Smn-Orth 03 Implanted:Qty: 1 on 04/11/2021 by Louie Benítez MD Left: Hip [employer] 01/03/20312761-7436 / / [id number] Hip Cabl Coblt Chrm 2mm W Clmp Smn-Orth 03 Implanted:Qty: 1 on 04/11/2021 by Louie Benítez MD Left: Hip [employer] 01/03/20317444-0162 / / [id number] Slvls Monolithic Rev Ppis826ex Smn-Orth [id number] 9 Implanted:Qty: 1 on 04/11/2021 by Louie Benítez MD Left: Hip [employer] 08/27/2028 [id number] / / [id number] Hip Hd Fem 12 14 36mm +4mm Smn-Orth 4803-7691-3767 55 Implanted:Qty: 1 on 04/11/2021 by Louie Benítez MD Left: Hip [employer] 02/07/2031 2521-3304 / / [id number] Hip Hd Fem 12 14 Tapr 28mm +8 Smn-Orth 3689-4851-1709 37 Implanted:Qty: 1 on 07/08/2022 by Louie Benítez MD Left: Hip [employer] 07/27/2031 2468-9606 / / [id number] 28mm Id, 46mm Od Dual Mobility Insert Xlpe Implanted:Qty: 1 on 07/08/2022 Left: Hip [employer] 11/25/2030 [id number] / / [id number] Hip Insrt Mod Dl Mobility 46mm [facility] 147-31-87p-[id number] 384 Implanted:Qty: 1 on 07/08/2022 by Louie Benítez MD [employer] 626-00-46F / / Care Teams District Captain Relationship Specialty Start Date End Date Marilu Quesada PA [address] [place] [address] PCP - General 07/08/22
--- OUTSIDE RECORDS SUMMARY | 2025-02-07 15:06 | XMS_ITS | Encounter Summary ---
Author Organization [facility] Address [address] [place] [address] Care Team Providers Care Photo Offset Printer Name Role Phone Sophia Monroe MD Primary Care Provider [phone] Nahum Benavides MD Unavailable Cuba Claire MD Unavailable [phone] Alan Harris MD Unavailable [phone] Jessica Nelson MD Unavailable [phone] Sophia Monroe MD Unavailable [phone] Encounter Details Date Type Department Care Team (Late st Contact Info) Description 10/22/2024 Scanned Document [facility] [address] [place] [address] Urology, Scan Social History Tobacco Use Types [...] Description 07/05/2025 8:00 AM EST Office Visit [address] [place] [phone] Sophia Monroe MD [address] [place], [place] [address] documented as of this encounter Visit Diagnoses Not on filedocumented in this encounter Care Teams Photo Offset Printer Relationship Specialty Start Date End Date Sophia Monroe MD [address] [place], [place] [address] PCP - General Internal Medicine 01/16/24 Sophia Monroe MD [address] [place] [address] PCP - MSSP Attributed 06/13/24 Nahum Benavides MD [address] [place] [address] [address] [place] [address] Neurology 01/17/24 Cuba Claire MD 100 [facility] [address] [place] [address] Referring Provider 01/17/24 Alan Harris MD [address] [facility] [place] [address] Referring Provider Surgery, Orthopedic 01/17/24 Jessica Nelson MD [address] [place] [address] [place] [address] Cardiovascular Disease 04/03/24 documented as of this encounter
--- OUTSIDE RECORDS SUMMARY | 2025-02-07 15:06 | XMS_ITS | Encounter Summary ---
Author Organization [facility] Address [address] [place] [address] Care Team Providers Care Chicken Cutter Name Role Phone Sophia Monroe MD Primary Care Provider Nahum Benavides MD Unavailable Cuba Claire MD Unavailable [phone] Alan Harris MD Unavailable [phone] Jessica Nelson MD Unavailable [phone] Sophia Monroe MD Unavailable [phone] Encounter Details Date Type Department Care Team (Late st Contact Info) Description 07/23/2024 Scanned Document [address] [phone] Kelsi Bonner MD [address] [place] [address] Social History Tobacco Use Types Packs/Day Years [...] Description 07/05/2025 8:00 AM EST Office Visit [facility] 100 [facility] [address] [place] [address] Sophia Monroe MD [address] [place] [address] documented as of this encounter Visit Diagnoses Not on filedocumented in this encounter Care Teams Chicken Cutter Relationship Specialty Start Date End Date Sophia Monroe MD [address] [place] [address] PCP - General Internal Medicine 01/16/24 Sophia Monroe MD [address] [place] [address] PCP - MSSP Attributed 06/13/24 Nahum Benavides MD [address] [place] [address] [address] [place] [address] Neurology 01/17/24 Cuba Claire MD 100 [facility] 120 [place] [address] Referring Provider 01/17/24 Alan Harris MD [address] [place] [address] Referring Provider Surgery, Orthopedic 01/17/24 Jessica Nelson MD [address] [place] [address] [place] [address] Cardiovascular Disease 04/03/24 documented as of this encounter
--- OUTSIDE RECORDS SUMMARY | 2025-02-07 15:06 | XMS_ITS | Encounter Summary ---
Author Organization [facility] Address [address] [place] [address] Care Team Providers Care Senior Engineering Team Leader Name Role Phone Sophia Monroe MD Primary Care Provider [phone] Nahum Benavides MD Unavailable Cuba Claire MD Unavailable [phone] Alan Harris MD Unavailable [phone] Jessica Nelson MD Unavailable [phone] Sophia Monroe MD Unavailable [phone] Encounter Details Date Type Department Care Team (Late st Contact Info) Description 08/22/2024 Scanned Document [address] [phone] Kelsi Bonner MD [address] [place] [address] Social History Tobacco Use Types Packs/Day [...] Description 07/05/2025 8:00 AM EST Office Visit [facility] 100 [facility] [address] [place] [address] Sophia Monroe MD [address] [place] [address] documented as of this encounter Visit Diagnoses Not on filedocumented in this encounter Care Teams Senior Engineering Team Leader Relationship Specialty Start Date End Date Sophia Monroe MD [address] [place] [address] PCP - General Internal Medicine 01/16/24 Sophia Monroe MD [address] [place] [address] PCP - MSSP Attributed 06/13/24 Nahum Benavides MD [address] [place] [address] [address] [place] [address] Neurology 01/17/24 Cuba Claire MD 100 [facility] 120 [place] [address] Referring Provider 01/17/24 Alan Harris MD [address] [place] [address] Referring Provider Surgery, Orthopedic 01/17/24 Jessica Nelson MD [address] [place] [address] [place] [address] Cardiovascular Disease 04/03/24 documented as of this encounter
--- OUTSIDE RECORDS SUMMARY | 2025-02-07 15:06 | XMS_ITS | Encounter Summary ---
Author Organization [facility] Address [address] [place] [address] Care Team Providers Care Sky Cap Name Role Phone Sophia Monroe MD Primary Care Provider [phone] Nahum Benavides MD Unavailable Cuba Claire MD Unavailable Alan Harris MD Unavailable [phone] Jessica Nelson MD Unavailable [phone] Sophia Monroe MD Unavailable [phone] Encounter Details Date Type Department Care Team (Late st Contact Info) Description 01/25/[address] [address] Sophia Monroe MD [address] [place], [place] [address] Social History Tobacco Use Types Packs/Day Years [...] Description 07/05/2025 8:00 AM EST Office Visit [facility] 100 [facility] 101 [place] [address] Sophia Monroe MD 100 [place] [address] documented as of this encounter Visit Diagnoses Not on filedocumented in this encounter Care Teams Sky Cap Relationship Specialty Start Date End Date Sophia Monroe MD 100 [place] [address] PCP - General Internal Medicine 01/16/24 Sophia Monroe MD [address] [place] [address] PCP - MSSP Attributed 06/13/24 Nahum Benavides MD [address] [place] [address] [address] [place] [address] Neurology 01/17/24 Cuba Claire MD 100 [facility] 120 [place] [address] Referring Provider 01/17/24 Alan Harris MD [address] [place] [address] [address] Referring Provider Surgery, Orthopedic 01/17/24 Jessica Nelson MD [address] [place] [address] [place] [address] Cardiovascular Disease 04/03/24 documented as of this encounter
--- OUTSIDE RECORDS SUMMARY | 2025-02-07 15:06 | XMS_ITS | Clinical Summary ---
Author Organization [facility] Address [address] [place] [address] Care Team Providers Care Pencil Inspector Name Role Phone Sophia Monroe MD Primary Care Provider [phone] Nahum Benavides MD Unavailable Cuba Claire MD Unavailable [phone] Alan Harris MD Unavailable [phone] Jessica Nelson MD Unavailable [phone] Sophia Monroe MD Unavailable [phone] Allergies Active Allergy Reactions Criticality Noted Date Comments Bee Venom Anaphylaxis,Swelling High 12/03/2020 FACIAL SWELLING, LOCALIZED SWELLING LOCALIZED Metoprolol Hives Medium 11/14/2020 Medications atenolol (TENORMIN) 25 MG tablet Take 1 tablet (25 mg total) by mouth daily. Active atorvastatin (LIPITOR) 80 MG tablet Take 1 tablet (80 mg total) by mouth nightly. Active Cholecalciferol (Vitamin D) 50 MCG (1999 UT) Cap Take by mouth. Activ e fenofibrate (TRICOR) 48 MG tablet Take 1 tablet (48 mg total) by mouth. Active fluticasone (FloNASE) 50 mcg/spray nasal spray See Instructions, SPRAY 1 SPRAY INTO BOTH NARES EVERY DAY, # 16 mL, 0 Refills, Maintenance, 03/11/23 15:04:00 EDT, [id number], 60, SPRAY 1 SPRAY INTO BOTH NARES EVERY DAY, 173, cm, 03/11/23 11:11:00 EDT, Height, 112, kg, 02/16/23 17:30:00 EDT, Dr... 03/11/20 Active Multiple Vitamin (Multivitamin Adult) Tab Take 1 tablet by mouth daily. Active OMEprazole (PriLOSEC) 20 MG capsule Take 1 capsule (20 mg total) by mouth daily. Active Aubagio 14 MG Tab Take 14 mg by mouth daily. 06/22/19 Active EPINEPHrine 0.3 mg/0.3 mL IJ auto-injectionIn dications:Bee sting allergy Inject 0.3 mL (0.3 mg total) into the thigh once as needed for allergic reaction. Then, call 911. 2 each 01/17/20 Active aspirin 81 MG chewable tablet Chew 1 tablet (81 mg total) daily. Active Gemtesa 75 MG tablet Take 1 tablet (75 mg total) by mouth daily. 03/23/20 Active SUPPLY DME MISCIndications: [place] (obstructive sleep apnea) [employer]Med AirSense 11 with modem only (no substitute, brand medically necessary) auto 5-15 cmH2O, EPR 3 horse race timer, heated humidification, heated tubing, AirFit N30 or patient preference, [employer] data link to be active for indefinite use, please provide all supplies as eligible based on coverage (or on demand if patient preference), NASIR 99 1 each 07/23/19 Active Additional Information Patient not taking.Reported on 01/03/2025 amLODIPine (NORVASC) 10 MG tabletIndication s:Primary hypertension TAKE 1 TABLET BY MOUTH EVERY DAY 90 tablet 1 11/20/19 Active celeCOXIB (CeleBREX) 200 MG capsule Take by mouth as needed. 10/24/19 Active FLUoxetine (PROzac) 40 MG capsuleIndicatio ns:Anxiety Take 1 capsule (40 mg total) by mouth daily. 90 capsule 1 01/31/20 25 Active FLUoxetine (PROzac) 40 MG capsuleIndicatio ns:Anxiety TAKE 1 CAPSULE BY MOUTH EVERY DAY 90 capsule 2 06/19/19 25 025 Discontin ued(Reord er) Active Problems Problem Noted Date Diagnosed Date Moderate obstructive sleep apnea 07/23/2024 Avascular necrosis of bone of right hip 05/22/20 BPH (benign prostatic hyperplasia) 05/22/2024 Cervical spondylosis [...] Encounters Date Type Department Care Team Description 01/30/[address] [address] Sophia Monroe MD Anxiety 01/03/2025 10:00 AM EDT Office Visit [address] [address] Sophia Monroe MD Routine medical exam (Primary Dx) 01/03/2025 Travel 11/20/2024 7:45 AM EDT Office Visit [address] [address] Merari Aly MD Diarrhea, unspecified type (Primary Dx) 11/20/2024 Travel 11/18/[address] [address] Sophia Monroe MD Primary hypertension from Last 3 Months Immunizations Immunization Administration Dates Next Due Covid-19 MRNA Vaccine - Pfiz er 12+ (Purple Cap) 08/07/2020,08/04/2020 Influenza Virus Trivalent Sp lit Vaccine (MDV) IM 03/28/2024,03/31/2023,03/29/2022,03/10,04/02/2020,05/22/2019 Influenza Whole 03/17/2018 Influenza, Trivalent (FLUARI X, AFLURIA, FLULAVAL, FLUZONE) Preservative Free IM 05/22/2019 Pneumococcal Conjugate 13-Valent 07/20/2019 Pneumococcal Polysaccharide 23-Valent [...] drink = 0.6 oz pur e alcohol) T[employer] Answer Date Recorded In the past 12 months has pbsi e mokono, gas, oil, or water Walkabout threatened to shut off services in your home? No 01/03/2025 Social Connection and Isolation Panel [NHANES] A nswer Date Recorded In a typical week, how many times do you talk on the phone with family, friends, or neighbors? Three times a week 01/03/2025 Frequency of Social Gatherin gs with Friends and Family Not on file 01/03/2025 Attends Faith Services Not on file 01/03 Active Member of Clubs or Organizations Not on f ile 01/03/2025 Attends Club or Organization Meetings Not on bobbi e 01/03/2025 Marital Status Not on file 01/03/2025 AUDIT-C Answer Date Recorded Q1: How often do you have a drink containing alc ohol? Never 01/03/2025 Average Number of Drinks Not on file 025 Frequency of Binge Drinking Not on file 12/12 PHQ-2 Answer Date Recorded PHQ-2 Total Score 1 01/03/2025 Hunger Vital Sign Answer Date Recorded Within the past 12 months, y ou worried that your food would run out before you got the money to buy more. Never true 01/04/20 25 Within the past 12 months, t he food you bought just didn't last and you didn't have money to get more. Never true 01/03/2025 PRAPARE - Transportation Answer Date Re corded In the past 12 months, has l ack of transportation kept you from medical appointments or from getting medications? No 12/12 In the past 12 months, has l ack of transportation kept you from meetings, work, or from getting things needed for daily living? No 01/03/2025 Housing Stability Vital Sign Answer Elie e Recorded In the last 12 months, was t here a time when you were not able to pay the mortgage or rent on time? No 01/03/2025 In the past 12 months, how m any times have you moved where you were living? 0 01/03/2025 At any time in the past 12 m [facility], were you homeless or living in a fpc (including now)? No 01/03/2025 Education Answer Date Recorded What is the highest level of school you have completed or the highest degree you have received? 12th grade 01/03/2025 Sex and Gender Information Value Date Recorded Sex Assigned at Male 05/21/2024 11:03 AM EST Legal Sex Male 11:37 AM EDT Gender Identity Choose not to disclose 11:03 AM EST Sexual Orientation Choose not to disclose 2023 11:03 AM EST Last Filed Vital Signs Vital Sign Reading Time Taken Comments Blood Pressure 151/87 01/03/2025 10:30 AM EDT Pulse 67 01/03/2025 10:30 AM EDT Temperature 35.9 C (96.6 F) 01/03/2025 10:30 AM EDT Respiratory Rate 17 01/03/2025 10:30 AM EDT Oxygen Saturation 97% 01/03/2025 10:30 AM EDT Inhaled Oxygen Concentration - - Weight 109 kg (239 lb 12.8 oz) 01/03/2025 10:30 AM EDT Height 167.6 cm (5' 6 ) 01/03/2025 10:30 AM EDT Body Mass Index 38.7 01/03/2025 10:30 AM EDT Plan of Treatment Upcoming Encounters Date Type Department Care Team (Late st Contact Info) Description 07/05/2025 8:00 AM EST Office Visit [facility] [address] [place] [phone] Sophia Monroe MD [address] [place] [address] Health Maintenance Due Date Last Done Comments Hepatitis C Virus Screening 1950 Annual Wellness Visit 1969 Physical 1969 DTaP/Tdap/Td Vaccines (1 - Tdap) 1970 Colonoscopy 1996 Zoster (Shingles) Vaccine (1 of 2) 2001 RSV Vaccine 60 years and older and Patients (1 - Risk 60-74 years 1-dose series) 2011 DXA Bone Density (Females,Ages 65 and older) 2016 COVID-19 Vaccine ( season) 2024 03/28/2024, 03/31/2023, 02/26/2022, Additional history exists Influenza Vaccine 01/11/2025 03/28/2024, , 03/29/2022, Additional history exists Pneumococcal Vaccines 50+ Completed 10/09/2020, 12/2019 Hepatitis B Vaccines Aged Out No long er eligible based on patient's age to complete this topic Procedures Procedure Name Priority Date/Time Associated Diagnosis Comments SALMONELLA/SHIGELLA CULT, CAMPY EIA AND SHIGA TOXIN W/RFL E. COLI O157 CULT Routine 11/23/2024 9:30 AM EDT Diarrhea, unspecified type STOOL CULTURE, R/O E. COLI 0157 Routine 11/23/2024 9:30 AM EDT Diarrhea, unspecified type C. DIFFICILE TOXIN B, QL REAL TIME PCR Routine 11/23/2024 9:30 AM EDT Diarrhea, unspecified type O & P W/GIARDIA ANTIGEN Routine 11/23/2024 9:30 AM EDT Diarrhea, unspecified type COMPLETE BLOOD COUNT, WITH DIFFERENTIAL Routine 11/20/2024 12:43 PM EDT Diarrhea, unspecified type COMPREHENSIVE METABOLIC PANEL Routine 11/20/2024 12:43 PM EDT Diarrhea, unspecified type from Last 3 Months Results * Salmonella/Shigella Cult, Campy EIA and Shiga Toxin W/RFL E. Coli O157 Cult (11/23/2024 9:30 AM EDT) CAMPYLOBACTER SPP. AG,EIA SEE NOTE Pantry Comment: CAMPYLOBACTER SPP. AG,EIA Micro Number: [id number] Test Status: Final Specimen Source: Stool Specimen Quality: Adequate Campy Ag Result: Not Detected Reference Range: Not Detected E. coli Shiga Toxins SEE NOTE Pantry Comment: SHIGA TOXINS, EIA W/RFL TO E.COLI O157 CULTURE Micro Number: [id number] Test Status: Final Specimen Source: Stool Specimen Quality: Adequate Shiga Toxin: Not Detected Reference Range: Not Detected Salmonella/Shigel la Culture SEE NOTE Pantry Comment: SALMONELLA AND SHIGELLA, CULTURE Micro Number: [id number] Test Status: Final Specimen Source: Stool Specimen Quality: Adequate Result: No Salmonella or Shigella isolated 11/23/2024 9:30 AM EDT 11/23/2024 10:35 AM EDT Narrative [facility] - 12/05/2024 3:07 PM EDT SPLIT 11/20/2024 FROM [id number] FASTING:NO FASTING: NO Merari Aly MD LAB AMB FLUID/STOOL ORDERA BLES Final Result [facility] [address] [place] [phone] * C. Difficile Toxin B, QL Real Time PCR (11/23/2024 9:30 AM EDT) C. Difficile Toxin B, QL Real Time PCR NOT DETECTED NOT DETECTED Pantry Comment: This test is for use only with liquid or soft stools; performance characteristics of other clinical specimen types have not been established. This assay was performed by Cepheid GeneXpert(R) PCR. The performance characteristics of this assay have been determined by [employer]. Performance characteristics refer to the analytical performance of the test. For additional information, please refer to http://AOTMP.[employer]/faq/FCU918 (This link is being provided for informational/educational purposes only.) 11/23/2024 9:30 AM EDT 11/23/2024 10:35 AM EDT Narrative [facility] - 12/05/2024 3:07 PM EDT SPLIT 11/20/2024 FROM [id number] FASTING:NO FASTING: NO us Merari Aly MD LAB AMB MICRO ORDERABLES F inal Result [facility] [address] [place] [phone] * O & P w/Giardia Antigen (11/23/2024 9:30 AM EDT) Giardia Ag, Stl SEE NOTE [employer] Comment: GIARDIA AG, EIA, STOOL Micro Number: [id number] Test Status: Final Specimen Source: Stool Specimen Quality: Adequate Giardia Result 1: Not Detected Reference Range: Not Detected NOTE: Due to intermittent shedding, one negative sample does not necessarily rule out the presence of a parasitic infection. Trichrome (1) SEE NOTE Pantry Comment: OVA AND PARASITES, CONC AND PERM SMEAR Micro Number: [id number] Test Status: Final Specimen Source: Stool Specimen Quality: Adequate CONCENTRATION 1: No ova or parasites seen TRICHROME 1: No ova or parasites seen Routine Ova and Parasite exam may not detect some parasites that occasionally cause diarrheal illness. Cryptosporidium Antigen and/or Cyclospora and Isospora Exam may be ordered to detect these parasites. One negative sample does not necessarily rule out the presence of a parasitic infection. For additional information, please refer to https://AOTMP[employer]/faq/CWH409 (This link is being provided for informational/ educational purposes only.) Stool 11/23/2024 9:30 AM EDT 11/23/2024 10:35 AM EDT Narrative [facility] - 12/05/2024 3:07 PM EDT SPLIT 11/20/2024 FROM [id number] FASTING:NO FASTING: NO Merari Aly MD LAB AMB MICRO ORDERABLES F inal Result Performing Organization Address [facility] de Phone Number [facility] [address] [place] [phone] * Stool Culture, R/O E. coli 0157 (11/23/2024 9:30 AM EDT) [facility] Culture, Ecoli 0157:H7 SEE NOTE Pantry Comment: ESCHERICHIA COLI O157, CULTURE Micro Number: [id number] Test Status: Final Specimen Source: Stool Specimen Quality: Adequate Result: No Escherichia coli O157 isolated NOTE: E. coli other than O157 may produce Shiga toxin. 11/23/2024 9:30 AM EDT 11/23/2024 10:35 AM EDT Narrative [facility] - 12/05/2024 3:07 PM EDT SPLIT 11/20/2024 FROM [id number] FASTING:NO FASTING: NO Merari Aly MD LAB AMB MICRO ORDERABLES F inal Result Performing Organization Address [facility] de Phone Number [facility] [address] [place] [phone] * (ABNORMAL) Complete Blood Count, with Differential (11/20/2024 12:43 PM EDT) [facility] White Blood Cell Count 6.2 3.8 - 10.8 Thousand/ uL [facility] Red Blood Cell Count 4.86 4.20 - 5.80 Million/u L [facility] Hemoglobin 13.4 13.2 - 17.1 g/dL [facility] Hematocrit 43.6 38.5 - 50.0 % [facility] MCV 89.7 80.0 - 100.0 fL [facility] MCH 27.6 27.0 - 33.0 pg Pantry MCHC 30.7(L) 32.0 - 36.0 g/dL Pantry Comment: For adults, a slight decrease in the calculated MCHC value (in the range of 30 to 32 g/dL) is most likely not clinically significant; however, it should be interpreted with caution in correlation with other red cell parameters and the patient's clinical condition. RDW 12.5 11.0 - 15.0 % Pantry Platelet Count 258 140 - 400 Thousand/ uL [facility] MPV 10.6 7.5 - 12.5 fL [facility] Abs Neutrophils Auto 3,956 1,500 - 7,800 cells/uL [facility] Abs Lymphocytes Auto 1,414 850 - 3,900 cells/uL Pantry Abs Monocytes Auto 657 200 - 950 cells/uL [facility] Abs Eosinophils Auto 143 15 - 500 cells/uL Pantry Abs Basophils Auto 31 0 - 200 cells/uL Pantry Neutrophils Auto 63.8 % [facility] Lymphocytes Auto 22.8 % [facility] Monocytes Auto 10.6 % Pantry Eosinophils Auto 2.3 % Que [facility] Basophils Auto 0.5 % Pantry Blood specimen / Unknown 11/20/2024 12:43 PM EDT 11/20/2024 12:50 PM EDT Narrative [facility] - 11/21/2024 9:52 AM EDT FASTING:NO COLLECTION KIT GIVEN TO PATIENT. PATIENT ADVISED TO RETURN. FASTING: NO us Merari Aly MD LAB BLOOD ORDERABLES Final Result [facility] [address] [place] [phone] * (ABNORMAL) Comprehensive Metabolic Panel (11/20/2024 12:43 PM EDT) [facility] Glucose 82 65 - 99 mg/dL Pantry Comment: Fasting reference interval Blood Urea Nitrogen (BUN) 28(H) 7 - 25 mg/dL [facility] Creatinine 1.33(H) 0.70 - 1.28 mg/dL Pantry Creatinine w/ eGFR 56(L) > OR = 60 mL/min/1. 73m2 Pantry BUN/Creatinine Ratio 21 6 - 22 (calc) Pantry Sodium 139 135 - 146 mmol/L [facility]ry Potassium 4.2 3.5 - 5.3 mmol/L [facility] Chloride 106 98 - 110 mmol/L [facility] CO2 26 20 - 32 mmol/L Pantry Calcium 9.0 8.6 - 10.3 mg/dL [facility] Protein, Total 6.3 6.1 - 8.1 g/dL [facility] Albumin 4.0 3.6 - 5.1 g/dL [facility] Globulin 2.3 1.9 - 3.7 g/dL (calc) Pantry Albumin/Globulin Ratio 1.7 1.0 - 2.5 (calc) Pantry Bilirubin, Total 0.4 0.2 - 1.2 mg/dL [facility] Alkaline Phosphatase 64 35 - 144 U/L Pantry Aspartate Aminotrans (AST) 40(H) 10 - 35 U/L Pantry Alanine Aminotrans (ALT) 30 9 - 46 U/L Pantry Blood Blood specimen / Unknown 11/20/2024 12:43 PM EDT 11/20/2024 12:50 PM EDT Narrative [facility] - 11/21/2024 9:52 AM EDT FASTING:NO COLLECTION KIT GIVEN TO PATIENT. PATIENT ADVISED TO RETURN. FASTING: NO us Merari Aly MD LAB BLOOD ORDERABLES Final Result [facility] [address] [place] [phone] from Last 3 Months Insurance MEDICARE PART A & B BLUE [facility] Care Teams Pencil Inspector Relationship Specialty Start Date End Date Sophia Monroe MD [address] [place] [address] PCP - General Internal Medicine 01/16/24 Sophia Monroe MD [address] [place] [address] PCP - MSSP Attributed 06/13/24 Nahum Benavides MD [address] [place] [address] [address] [place] [address] Neurology 01/17/24 Cuba Claire MD [address] [place] [address] [address] [place] [address] Referring Provider 01/17/24 Alan Harris MD [address] [place], [place] [address]tate Holman [address] [place] [address] Referring Provider Surgery, Orthopedic 01/17/24 Jessica Nelson MD [address] [place] [address] Cardiovascular Disease 04/03/24
--- OUTSIDE RECORDS SUMMARY | 2025-02-07 15:06 | XMS_ITS | Encounter Summary ---
Author Organization [facility] Address [address] [place] [address] Care Team Providers Care Sheet Combining Operator Name Role Phone Sophia Monroe MD Primary Care Provider [phone] Nahum Benavides MD Unavailable Cuba Claire MD Unavailable [phone] Alan Harris MD Unavailable [phone] Jessica Neslon MD Unavailable [phone] Sophia Monroe MD Unavailable [phone] Encounter Details Date Type Department Care Team (Late st Contact Info) Description 01/20/2024 Scanned Document [facility] [address] [place] [address] Urology, Scan Social History Tobacco Use Types [...] Description 07/05/2025 8:00 AM EST Office Visit [address] [place] [phone] Sophia Monroe MD [address] [place], [place] [address] documented as of this encounter Visit Diagnoses Not on filedocumented in this encounter Care Teams Sheet Combining Operator Relationship Specialty Start Date End Date Sophia Monroe MD [address] [place], [place] [address] PCP - General Internal Medicine 01/16/24 Sophia Monroe MD [address] [place] [address] PCP - MSSP Attributed 06/13/24 Nahmu Benavides MD [address] [place] [address] [address] [place] [address] Neurology 01/17/24 Cuba Claire MD [address] [facility] [address] [place] [address] Referring Provider 01/17/24 [facility] [address] [facility] [place] [address] Referring Provider Surgery, Orthopedic 01/17/24 Jessica Nelson MD [address] [place] [address] [address] [place] [address] Cardiovascular Disease 04/03/24 documented as of this encounter
== END 2025-02-07 15:04 | disposition home or self-care (01) ==
LOC: HO.HOS 14:18
PROVIDERS: Visit Provider Physician Assistant
DX: S52.121A Displaced fracture of head of right radius, initial encounter for closed fracture (principal)
CPT/HCPCS: 99213

== ENCOUNTER → 2025-02-07 14:19 | Outpatient (BNV) | payer MEDICARE, SELFPAY | PROVIDERS: Visit Provider Radiology Diagnostic Radiology | DX: S52.121A Displaced fracture of head of right radius, initial encounter for closed fracture (principal) | CPT/HCPCS: 73080 ==

== ENCOUNTER 2025-03-09 07:41 | Outpatient (REF) | payer MEDICARE, SELFPAY ==
--- NOTE | ~2025-03-09 | CT_ITS ---
CLINICAL HISTORY: S52.121A - Displaced fracture of head of right radius, initial encounter... CT right elbow without contrast Comparison: 02/07/2025 radiograph an older radiographs dating back to 11/02/2024 Findings: Limited exam due to streak artifacts. Normal alignment. Age-indeterminate intra-articular fracture of the anteromedial aspect of the radial head with up to 1.5 mm step-off of the articular surface. Correlate clinically for focal tenderness. Of note, an intra-articular fracture of the radial aspect of the radial head was seen on the prior radiographs. No fracture line is seen at this level on this limited study. Otherwise no acute fracture. Mild spurring/rpci-qc-eaqzczhi heterotopic ossification at/in the vicinity of the lateral humeral epicondyle are sequela of old injury. Severe degenerative narrowing of the posterior aspect of the radiocapitellar joint. Presence or absence of joint effusion ca not be determined on this limited study. No definite abnormality of the visualized soft tissues on this limited exam. Impression: Limited exam due to streak artifacts. Age-indeterminate intra-articular fracture of the anteromedial aspect of the radial head with up to 1.5 mm step-off of the articular surface. Correlate clinically for focal tenderness. Of note, an intra-articular fracture of the radial aspect of the radial head was seen on the prior radiographs. No fracture line is seen at this level on this limited study. This document has been electronically signed by: Luli Coyne MD on 03/11/2025 10:02:10
--- OUTSIDE RECORDS SUMMARY | 2025-03-09 07:44 | XMS_ITS | Clinical Summary ---
Author Organization [facility] Address [address] [place] [address] Care Team Providers Care Open Claims Representative Name Role Phone Marilu Quesada PA-C Primary [...] Risk Assessment 2016 COVID-19 Vaccine ( season) 2025 02/26/2022, 09/17/2021, 03/10/2021, Additional history exists Influenza [...] this topic Medical Devices Implanted Type Area Hemmer Lockstitch Device Identifier Shelf Expiration Date Model / Serial / Lot Lp Hex Screw 6.5x30mm Stry-Howm 1612-1618-0925 78 - [id number] Implanted:Qty: 1 on 12/11/2020 by Gerson Schwartz MD at [facility] Right: Hip [employer] 05/27/2025 0756-2773 / / [id number] Tritanium Cluster Hole Shell 58mm Stry-Howm 766-34-41m-770 475 - [id number] Implanted:Qty: 1 on 12/11/2020 by Gerson Schwartz MD at [facility] Right: Hip [employer] 07/09/2025 702-04-58F / / [id number] Lp Hex Screw 6.5x25mm Stry-Howm 7015-1117-6661 58 - [id number] Implanted:Qty: 1 on 12/11/2020 by Gerson Schwartz MD at [facility] Right: Hip [employer] 08/29/2025 9667-0596 / / [id number] Lp Hex Screw 6.5x25mm Stry-Howm 4022-3347-8247 58 - [id number] Implanted:Qty: 1 on 12/11/2020 by Gerson Schwartz MD at [facility] and [facility] Right: Hip [employer] 08/29/2025 4384-0903 / / [id number] Hip Insrt Poly X3 10deg 36mm Stry-Howm 593-69-05g-287 348 - [id number] Implanted:Qty: 1 on 12/11/2020 by Gerson Schwartz MD at [facility] and [facility] Right: Hip [employer] 03/25/2025 623-10-36F / / [id number] Stem Hip Neck Angle 127 Degree Accolade Ii Sz6 - [id number] - [id number] Implanted:Qty: 1 on 12/11/2020 by Gerson Schwartz MD at [facility] and [facility] Right: Hip [employer] 10/20/20250603-7194 / / [id number] Hip Head Delta Biolox 36mm -5 Stry-Howm 3579-1-703-549 190 - [id number] Implanted:Qty: 1 on 12/11/2020 by Gerson Schwartz MD at [facility] and [facility] Right: Hip [employer] 09/19/2025 6570-0-036 / / [id number] Lp Hex Screw 6.5x20mm Stry-Howm 9986-4075-3401 57 - [id number] Implanted:Qty: 1 on 04/02/2021 by Gerson Schwartz MD at [facility] and [facility] Left: Hip [employer] [id number] 10/15/2025 3952-9054 / / [id number] Hip Stem Accolade Ii Sz6 Stry-Howm 4168-3710-4003 19 - [id number] Implanted:Qty: 1 on 04/02/2021 by Gerson Schwartz MD at [facility] and [facility] Left: Hip [employer] [id number] 01/15/202667200621-7425 / / [id number] Tritanium Cluster Hole Shell 56mm Stry-Howm 533-48-75y-770 474 - [id number] Implanted:Qty: 1 on 04/02/2021 by Gerson Schwartz MD at [facility] and [facility] Left: Hip [employer] [id number] 11/20/2025 702-04-56F / / [id number] Lp Hex Screw 6.5x30mm Stry-Howm 8181-5381-2867 78 - [id number] Implanted:Qty: 1 on 04/02/2021 by Gerson Schwartz MD at [facility] and [facility] Left: Hip [employer] [id number] 11/03/2025 2882-8166 / / [id number] Hip Cabl Coblt Chrm 2mm W ClSharp [facility] 03 - [id number] Implanted:Qty: 1 on 04/11/2021 by Louie Benítez MD at [facility] Left: Hip [employer] 09/30/20308412-8268 / / [id number] Hip Cabl Coblt Chrm 2mm W Clmp [facility]-Orth 03 - [id number] Implanted:Qty: 1 on 04/11/2021 by Louie Benítez MD at [facility] Left: Hip [employer] 05/15/2030 7738-9756 / / [id number] Hip Cabl Coblt Chrm 2mm W Clmp [facility]-Orth 03 - [id number] Implanted:Qty: 1 on 04/11/2021 by Louie Benítez MD at [facility] Left: Hip [employer] 01/03/20318883-4251 / / [id number] Hip Cabl Coblt Chrm 2mm W Clmp [facility]-Orth 03 - [id number] Implanted:Qty: 1 on 04/11/2021 by Louie Benítez MD at [facility] Left: Hip [employer] 01/03/20314692-3578 / / [id number] Slvls Monolithic Rev [id number] Smn-Orth 45744601-90031 9 - [id number] Implanted:Qty: 1 on 04/11/2021 by Louie Benítez MD at [facility] Left: Hip [employer] 08/27/2028 [id number] / / [id number] Hip Hd Fem 12 14 36mm +4mm Smn-Orth 6443-7414-2170 55 - [id number] Implanted:Qty: 1 on 04/11/2021 by Louie Benítez MD at [facility] Left: Hip [employer] 02/07/2031 3920-8228 / / [id number] Hip Hd Fem 12 14 Tapr 28mm +8 Smn-Orth 9155-9033-8116 37 - [id number] Implanted:Qty: 1 on 07/08/2022 by Louie Benítez MD at [facility] Left: Hip [employer] 07/27/2031 4627-2370 / / [id number] 28mm Id, 46mm Od Dual Mobility Insert Xlpe Implanted:Qty: 1 on 07/08/2022 at [facility] Left: Hip [employer] 11/25/2030 [id number] / / [id number] Hip Insrt Mod Dl Mobility 46mm Stry-Howm 174-89-53y-551 384 - [id number] Implanted:Qty: 1 on 07/08/2022 by Louie Benítez MD at [facility] [employer] 626-00-46F / / Explanted Type Area Hemmer Lockstitch Device Identifier Shelf Expiration Date Model / Serial / Lot Hip Insrt Poly X3 10deg 36mm Stry-Howm 284-40-46o-287 348 - [id number] Implanted:Qty: 1 on 04/02/2021 by Gerson Schwartz MD at [facility] and [facility] Explanted:Qty: 1 on 07/08/2022 at [facility] Left: Hip [employer] [id number] 08/11/2024 623-10-36F / / [id number] Hip Head Delta Biolox 36mm -5 Stry-Howm 2640-6-050-549 190 - [id number] Implanted:Qty: 1 on 04/02/2021 by Gerson Schwartz MD at [facility] and [facility] Explanted:Qty: 1 on 07/08/2022 at [facility] Left: Hip [employer] [id number] 02/01/2026 6570-0-036 / / [id number] 6.5mm Low Profile Hex Screw Explanted:Qty: 1 on 07/08/2022 at [facility] [employer] 05/03/2027 2486-4519 / / [id number] Description:Not implanted, u sed to remove previous implanted liner Advance Directives For more information, please contact: [phone] Latest Code Status on File Code Status [...] way: discussion with patient . Care Teams Open Claims Representative Relationship Specialty Start Date End Date Marilu Quesada PA-C PCP - General Medical Services 07/08/22
--- OUTSIDE RECORDS SUMMARY | 2025-03-09 07:44 | XMS_ITS | Encounter Summary ---
Author Organization [facility] Address [address] [place] [address] Care Team Providers Care Clinic Nurse Name Role Phone Sophia Monroe MD Primary Care Provider [phone] Nahum Benavides MD Unavailable Cuba Claire MD Unavailable [phone] Alan Harris MD Unavailable [phone] Jessica Nelson MD Unavailable [phone] Sophia Monroe MD Unavailable [phone] Encounter Details Date Type Department Care Team (Late st Contact Info) Description 10/22/2024 Scanned Document [facility] [address] [place] [address] Urology, Scan Social History Tobacco Use Types [...] Description 07/05/2025 8:00 AM EST Office Visit [address] [place] [address] Sophia Monroe MD [address] [place], [place] [address] documented as of this encounter Visit Diagnoses Not on filedocumented in this encounter Care Teams Clinic Nurse Relationship Specialty Start Date End Date Sophia Monroe MD [address] [place], [place] [address] PCP - General Internal Medicine 01/16/24 Sophia Monroe MD [address] [place] [address] PCP - MSSP Attributed 06/13/24 Nahum Benavides MD [address] [place] [address] [address] [place] [address] Neurology 01/17/24 Cuba Claire MD 100 [facility] 120 [place] [address] Referring Provider 01/17/24 Alan Harris MD [facility] [address] [address] Referring Provider Surgery, Orthopedic 01/17/24 Jessica Nelson MD [address] [place] [address] [address] [place] [address] Cardiovascular Disease 04/03/24 documented as of this encounter
--- OUTSIDE RECORDS SUMMARY | 2025-03-09 07:44 | XMS_ITS | Encounter Summary ---
Author Organization [facility] Address [address] [place] [address] Care Team Providers Care Hydrogen Power Plant Manager Name Role Phone Sophia Monroe MD Primary Care Provider Nahum Benavides MD Unavailable Cuba Claire MD Unavailable Alan Harris MD Unavailable [phone] Jessica Nelson MD Unavailable [phone] Sophia Monroe MD Unavailable [phone] Encounter Details Date Type Department Care Team (Late st Contact Info) Description 07/23/2024 Scanned Document [address] [phone] Kelsi Bonner MD [address] [place] [address] Social History Tobacco Use Types Packs/Day [...] Description 07/05/2025 8:00 AM EST Office Visit [facility] 100 [facility] [address] [place] [address] Sophia Monroe MD [address] [place] [address] documented as of this encounter Visit Diagnoses Not on filedocumented in this encounter Care Teams Hydrogen Power Plant Manager Relationship Specialty Start Date End Date Sophia Monroe MD [address] [place] [address] PCP - General Internal Medicine 01/16/24 Sophia Monroe MD [address] [place] [address] PCP - MSSP Attributed 06/13/24 Nahum Benavides MD [address] [place] [address] [address] [place] [address] Neurology 01/17/24 Cuba Claire MD 100 [facility] 120 [place] [address] Referring Provider 01/17/24 Alan Harris MD [address] [place] [address] Referring Provider Surgery, Orthopedic 01/17/24 Jessica Nelson MD [address] [place] [address] [place] [address] Cardiovascular Disease 04/03/24 documented as of this encounter
--- OUTSIDE RECORDS SUMMARY | 2025-03-09 07:44 | XMS_ITS | Encounter Summary ---
Author Organization [facility] Address [address] [place] [address] Care Team Providers Care Data Reporting Analyst Name Role Phone Sophia Monroe MD Primary Care Provider Nahum Benavides MD Unavailable Cuba Claire MD Unavailable Alan Harris MD Unavailable [phone] Jessica Nelson MD Unavailable [phone] Sophia Monroe MD Unavailable [phone] Encounter Details Date Type Department Care Team (Late st Contact Info) Description 08/22/2024 Scanned Document [address] [phone] Kelsi Bonner MD [address] [place] [address] Social History Tobacco Use Types Packs/Day [...] Description 07/05/2025 8:00 AM EST Office Visit [facility] 100 [facility] [address] [place] [address] Sophia Monroe MD [address] [place] [address] documented as of this encounter Visit Diagnoses Not on filedocumented in this encounter Care Teams Data Reporting Analyst Relationship Specialty Start Date End Date Sophia Monroe MD [address] [place] [address] PCP - General Internal Medicine 01/16/24 Sophia Monroe MD [address] [place] [address] PCP - MSSP Attributed 06/13/24 Nahum Benavides MD [address] [place] [address] [address] [place] [address] Neurology 01/17/24 Cuba Claire MD 100 [facility] [address] [place] [address] Referring Provider 01/17/24 Alan Harris MD [address] [place] [address] Referring Provider Surgery, Orthopedic 01/17/24 Jessica Nelson MD [address] [place] [address] [place] [address] Cardiovascular Disease 04/03/24 documented as of this encounter
--- OUTSIDE RECORDS SUMMARY | 2025-03-09 07:44 | XMS_ITS | Encounter Summary ---
Author Organization [facility] Address [address] [place] [address] Care Team Providers Care Psychosocial Rehabilitation Counselor Name Role Phone Sophia Monroe MD Primary Care Provider [phone] Nahum Benavides MD Unavailable Cuba Claire MD Unavailable [phone] Alan Harris MD Unavailable [phone] Jessica Nelson MD Unavailable [phone] Sophia Monroe MD Unavailable [phone] Encounter Details Date Type Department Care Team (Late st Contact Info) Description 05/01/2024 Scanned Document [address] [address] Primary Care, Scan Social History [...] Description 07/05/2025 8:00 AM EST Office Visit [address] [address] Sophia Monroe MD [address] [place] [address] documented as of this encounter Visit Diagnoses Not on filedocumented in this encounter Care Teams Psychosocial Rehabilitation Counselor Relationship Specialty Start Date End Date Sophia Monroe MD [address] [place] [address] PCP - General Internal Medicine 01/16/24 Sophia Monroe MD [address] [place] [address] PCP - MSSP Attributed 06/13/24 Nahum Benavides MD [address] [place] [address] [address] [place] [address] Neurology 01/17/24 Cuba Claire MD [address] [facility] 120 [place] [address] Referring Provider 01/17/24 Alan Harris MD [address] [address] Referring Provider Surgery, Orthopedic 01/17/24 Jessica Nelson MD [address] [place] [address] [place] [address] Cardiovascular Disease 04/03/24 documented as of this encounter
--- OUTSIDE RECORDS SUMMARY | 2025-03-09 07:44 | XMS_ITS | Clinical Summary ---
Author Organization [facility] Address [address] [place] [address] Care Team Providers Care Ice Cream Man Name Role Phone Sophia Monroe MD Primary Care Provider [phone] Nahum Benavides MD Unavailable Cuba Claire MD Unavailable [phone] Alan Harris MD Unavailable [phone] Jessica Nelson MD Unavailable [phone] Sophia Monroe MD Unavailable [phone] Allergies Active Allergy Reactions Criticality Noted [...] mL, 0 Refills, Maintenance, 03/11/23 15:04:00 EDT, [facility]5214, 60, SPRAY 1 SPRAY INTO BOTH NARES [...] 4 Active EPINEPHrine 0.3 mg/0.3 mL IJ auto-injectionIn dications:Bee sting allergy Inject 0.3 mL (0.3 mg total) into the thigh once as needed for allergic reaction. Then, call 911. 2 each 4 Active aspirin 81 MG chewable tablet Chew 1 tablet (81 mg total) daily. Active Gemtesa 75 MG tablet Take 1 tablet (75 mg total) by mouth daily. 4 Active SUPPLY DME MISCIndications: [place] (obstructive sleep apnea) [employer]Med AirSense 11 with modem only (no substitute, brand medically necessary) auto 5-15 cmH2O, EPR 3 full time staff interpreter, heated humidification, heated tubing, AirFit N30 or patient preference, [employer] data link to be active for indefinite use, please provide all supplies as eligible based on coverage (or on demand if patient preference), NASIR 99 1 each 5 Active Additional Information Patient not taking.Reported on 01/03/2025 amLODIPine (NORVASC) 10 MG tabletIndication s:Primary hypertension TAKE 1 TABLET BY MOUTH EVERY DAY 90 tablet 1 5 Active celeCOXIB (CeleBREX) 200 MG capsule Take by mouth as needed. 5 Active FLUoxetine (PROzac) 40 MG capsuleIndicatio ns:Anxiety Take 1 capsule (40 mg total) by mouth daily. 90 capsule 1 5 Active Active Problems Problem Noted Date [...] Date Type Department Care Team Description 01/30/[address] [address] Sophia Monroe MD Anxiety 01/03/2025 10:00 AM EDT Office Visit [address] [address] Sophia Monore MD Routine medical exam (Primary Dx) 01/03/2025 Travel from Last 3 Months Immunizations Immunization Administration [...] drink = 0.6 oz pur e alcohol) [facility] Utilities Answer Date Recorded In the past 12 months has th e electric, gas, oil, or water company threatened to shut off services in your home? No 01/03/2025 Social Connection and Isolation Panel [NHANES] A nswer Date Recorded In a typical week, how many times do you talk on the phone with family, friends, or neighbors? Three times a week 01/03/2025 Frequency of Social Gatherin gs with Friends and Family Not on file 01/03/2025 Attends Worship Services Not on file 01/03 Active Member [...] any time in the past 12 m [facility], were you homeless or living in [...] 07/05/2025 8:00 AM EST Office Visit [address] [place] [address] Sophia Monroe MD [address] [place] [address] Health Maintenance Due Date Last Done Comments Advance Care Planning 1950 Hepatitis C Virus Screening 1950 Annual Wellness Visit 1969 Physical 1969 DTaP/Tdap/Td Vaccines (1 - Tdap) 1970 Colonoscopy 1996 Zoster (Shingles) Vaccine (1 of 2) 2001 RSV Vaccine 60 years and older and Patients (1 - Risk 60-74 years 1-dose series) 2011 DXA Bone Density (Females,Ages 65 and older) 2016 Influenza Vaccine 01/11/2025 03/28/2024, , 03/29/2022, Additional history exists COVID-19 Vaccine ( season) 2025 03/28/2024, 03/31/2023, 02/26/2022, Additional history exists Pneumococcal Vaccines 50+ Completed 10/09/2020, 12/2019 Hepatitis B Vaccines Aged Out No long er eligible based on patient's age to complete this topic Insurance MEDICARE PART A & B [facility] Care Teams Ice Cream Man Relationship Specialty Start Date End Date Sophia Monroe MD [address] [place] [address] PCP - General Internal Medicine 01/16/24 Sophia Monroe MD [address] [place] [address] PCP - MSSP Attributed 06/13/24 Nahum Benavides MD [address] [place] [address] [address] [place] [address] Neurology 01/17/24 Cuba Claire MD 100 [facility] 120 [place] [address] Referring Provider 01/17/24 Alan Harris MD [address] [address] Referring Provider Surgery, Orthopedic 01/17/24 Jessica Nelson MD 3300 [facility] Second Floor [facility] [place] [address] Cardiovascular Disease 04/03/24
--- OUTSIDE RECORDS SUMMARY | 2025-03-09 07:44 | XMS_ITS | Encounter Summary ---
Author Organization [facility] Address [address] [place] [address] Care Team Providers Care Forensic Pathologist Name Role Phone Sophia Monroe MD Primary Care Provider [phone] Nahum Benavides MD Unavailable Cuba Claire MD Unavailable [phone] Alan Harris MD Unavailable [phone] Jessica Nelson MD Unavailable [phone] Sophia Monroe MD Unavailable [phone] Encounter Details Date Type Department Care Team (Late st Contact Info) Description 01/20/2024 Scanned Document [facility] [address] [place] [address] Urology, Scan Social History Tobacco Use Types [...] Description 07/05/2025 8:00 AM EST Office Visit [address] [place] [phone] Sophia Monroe MD [address] [place], [place] [address] documented as of this encounter Visit Diagnoses Not on filedocumented in this encounter Care Teams Forensic Pathologist Relationship Specialty Start Date End Date Sophia Monroe MD [address] [place], [place] [address] PCP - General Internal Medicine 01/16/24 Sophia Monroe MD [address] [place] [address] PCP - MSSP Attributed 06/13/24 Nahum Benavides MD [address] [place] [address] [address] [place] [address] Neurology 01/17/24 Cuba Claire MD 100 [facility] 120 [place] [address] Referring Provider 01/17/24 Alan Harris MD [facility] [place] [address] Referring Provider Surgery, Orthopedic 01/17/24 Jessica Nelson MD [address] [place] [address] [place] [address] Cardiovascular Disease 04/03/24 documented as of this encounter
--- OUTSIDE RECORDS SUMMARY | 2025-03-09 07:44 | XMS_ITS | Data Portability ---
Author Organization [place] [facility] [place] Address [address] [place] [address] Care Team Providers Care Certified Lactation Educator Name Role Phone [facility] Primary Care Provide r [facility] Referring Provider Assessment No assessment recorded. Plan of Treatment Reminders Order Date Submit Date Provider Last Modified By Organization Details Last Modified Time Details Appointments None record ed. Lab None record ed. Referral None record ed. Procedures None record ed. Surgeries None record ed. Imaging XR, hip, unilat eral, 2 or 3 view 023 09/29/19 23 [email or web address] [facility], [address], [place], [address], 3 17:13:15 Medication Orders None record ed. Patient TargetsNo targets recorded. Patient InstructionsNo instructions recorded. Reason for Referral None Reported. Results Created Date Observation Date Name Description Value Unit Range Abnormal Flag Note LastModifiedBy Organization Detail LastModifiedTime 11/06/19 23 11/05/2022 CT, pelvi s, w/o contr ast No observ ation record ed. [email or web address] [facility] ([facility]) [address], [place], [address], 11/05/2022 15:58:29 Result Notes None recorded. Problems Name Problem SNOMED Code Status Onset Date Resolution Date Notes Provider Name and Address Organization Details Recorded Time Chronic pain of right upper limb 50371323497 884700 Active 2016 Chronic right shoulder pain Not Available [facility] 00:[facility]:07 Surgical follow-up 095536014 Active 2017 Postop check Not Available [facility] 5 00:38:06 Arthritis of right hip 71232527848 33854 Active 2020 Arthritis of right hip Not Available [facility] 5 00:38:05 Degenerat ion of lumbar intervert ebral disc 03349470 Active 2020 DDD (degenera tive disc disease), lumbar Not Available [facility] 5 00:38:06 Low back pain 520113051 Active 2020 Lumbar back pain with radiculop athy affecting right lower extremity Not Available [facility] 5 00:38:06 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 Medical Equipment None Reported. Allergies Allergen ID Allergen Name Allergen Category Reaction Reaction Severity Criticality Documentation Date Start Date Code Code System Note Provider Name and Address Organization Details Recorded Time 959211 honey bee venom environme nt Not available Not available Not available 03/05/20252020 62462 7 RxNorm React ion: Swell ing, sever ity: Unkno wn;LO CALIZ ED Not Available [facility] 5 01:31:38 1241 metoprolo l Not available Not available Not available Not available 09/10/2022 6918 RxNorm Sotero [place], [place] - [facility] 3 08:36:41 1242 honey bee venom medicatio n Not available Not available Not available 09/10/2022 94484 7 RxNorm Sotero [place], [place] - [facility] 3 08:37:29 Medications Name Sig Start Date Stop Date Status Note LastModified by Organization Details LastModified Time fluoxetine 40 mg capsule TAKE 1 CAPSULE BY MOUTH DAILY active Not Available Not Available No t Available amoxicillin 500 mg capsule TAKE 1 CAPSULE EVERY 6 HOURS UNTIL FINISHED active Not Available Not Available No t Available neomycin-po lymyxin-hyd rocort 3.5 mg/mL-10,00 0 unit/mL-1 % ear solution INSTILL 5 DROPS INTO THE LEFT EAR TWICE A DAY active Not Available Not Available No t Available atorvastati n 80 mg tablet TAKE 1 TABLET BY MOUTH EVERYDAY AT BEDTIME active Not Available Not Available No t Available sennosides 8.6 mg tablet Take 1 tablet by mouth 2 (two) times a day. 06/11 completed Not Available Not Available Not Available oxybutynin chloride ER 10 mg tablet,exte nded release 24 hr Take 1 tablet (10 mg total) by mouth daily. 06/11 completed Not Available Not Available Not Available azithromyci n 250 mg tablet TAKE 2 TABLETS BY MOUTH TODAY, THEN TAKE 1 TABLET DAILY FOR 4 DAYS 06/11 completed Not Available Not Available Not Available meloxicam 15 mg tablet Take 1 tablet (15 mg total) by mouth. 06/16 completed Not Available Not Available Not Available lisinopril 20 mg tablet TAKE 1 TABLET BY MOUTH EVERY DAY active Not Available Not Available No t Available famotidine 40 mg tablet famotidin e 40 mg tablet 11/28 completed Not Available Not Available Not Available fluoxetine 10 mg tablet Take 2 tablets (20 mg total) by mouth daily. 2016 active Not Available Not Available Not Avai lable sennosides 8.6 mg-docusate sodium 50 mg tablet Take 1 tablet by mouth 2 (two) times a day. 2022 active Not Available Not Available Not Avai lable atenolol 25 mg tablet TAKE 1 TABLET BY MOUTH EVERY DAY active Not Available Not Available No t Available amlodipine 5 mg tablet TAKE 1 TABLET BY MOUTH EVERY DAY active Not Available Not Available No t Available ciprofloxac in 500 mg tablet TAKE 1 TABLET BY MOUTH EVERY 12 HOURS FOR 7 DAYS active Not Available Not Available No t Available aspirin 81 mg tablet,kiel yed release Take 1 tablet (81 mg total) by mouth 2 (two) times a day after meals for 28 days. 08/07 completed Not Available Not Available Not Available acetaminoph en 500 mg tablet Take 2 tablets (1,000 mg total) by mouth every 8 (eight) hours as needed. 2020 active Not Available Not Available Not Avai lable sildenafil 100 mg tablet Take 0.5 tablets (50 mg total) by mouth as needed. 07/08 completed Not Available Not Available Not Available amoxicillin 500 mg tablet Take 4 tabs 1 hour prior to dental appointme nt 03/18 completed Not Available Not Available Not Available ondansetron 8 mg disintegrat ing tablet Take 1 tablet (8 mg total) by mouth every 8 (eight) hours as needed for nausea. 2022 active Not Available Not Available Not Avai lable cefadroxil 500 mg capsule Take 1 capsule (500 mg total) by mouth 2 (two) times a day for 7 days. active Not Available Not Available No t Available meloxicam 7.5 mg tablet Take 1 tablet (7.5 mg total) by mouth daily. 2022 active Not Available Not Available Not Avai lable methocarbam ol 750 mg tablet Take 1 tablet (750 mg total) by mouth every 6 (six) hours as needed. 2022 active Not Available Not Available Not Avai lable tamsulosin 0.4 mg capsule tamsulosi n 0.4 mg capsuleTA KE 1 CAPSULE BY MOUTH EVERYDAY AT BEDTIME 11/28 completed Not Available Not Available Not Available amlodipine 10 mg tablet Take 1 tablet (10 mg total) by mouth daily. 2022 active Not Available Not Available Not Avai lable benzonatate 100 mg capsule TAKE 1 CAPSULE BY MOUTH THREE TIMES A DAY FOR 5 DAYS 06/16 completed Not Available Not Available Not Available pantoprazol e 40 mg tablet,kiel yed release Take 1 tablet (40 mg total) by mouth daily for 28 days. 01/10 completed Not Available Not Available Not Available methylpredn isolone acetate 40 mg/mL suspension for injection 01/14 completed Not Available Not Available Not Available lisinopril 10 mg tablet Take 1.5 tablets (15 mg total) by mouth daily. 07/09 completed Not Available Not Available Not Available clotrimazol e 1 % topical solution PLACE 2 DROPS IN THE LEFT EAR CANAL 2 TIMES A DAY 14 DAYS active Not Available Not Available No t Available hydrochloro thiazide 12.5 mg capsule TAKE 1 CAPSULE BY MOUTH EVERY DAY active Not Available Not Available No t Available ibuprofen 200 mg tablet Take 400 mg by mouth every 8 (eight) hours as needed for pain. 04/03 completed Not Available Not Available Not Available omeprazole 20 mg capsule,del ayed release Take 1 capsule (20 mg total) by mouth daily. active Not Available Not Available No t Available lisinopril 5 mg tablet Take 1 tablet (5 mg total) by mouth daily. 06/11 completed Not Available Not Available Not Available epinephrine 0.3 mg/0.3 mL injection, auto-inject or INJECT 1 PEN INTRAMUSC ULARLY NEEDED FOR LIFE-THRE ATENING ALLERGIC REACTION. REPEAT IF NECESSARY . active Not Available Not Available No t Available levofloxaci n 500 mg tablet TAKE 1 TABLET BY MOUTH EVERY DAY FOR 10 DAYS 11/28 completed Not Available Not Available Not Available levofloxaci n 750 mg tablet TAKE 1 TABLET BY MOUTH EVERY DAY FOR 5 DAYS active Not Available Not Available No t Available methylpredn isolone 4 mg tablets in a dose pack TAKE DIRECTED ON PACKAGE FOR 6 DAYS active Not Available Not Available No t Available albuterol sulfate HFA 90 mcg/actuati on aerosol inhaler 2 puffs every 4 (four) hours as needed for wheezing. 2021 active Not Available Not Available Not Avai lable cefdinir 300 mg capsule TAKE 1 CAPSULE BY MOUTH TWICE A DAY active Not Available Not Available No t Available fluticasone propionate 50 mcg/actuati on nasal spray,suspe nsion SPRAY 1 SPRAY INTO BOTH NARES EVERY DAY active Not Available Not Available No t Available diazepam 5 mg tablet 1 tablet (5 mg total). 06/16 completed Not Available Not Available Not Available amoxicillin 500 mg-potadu m clavulanate 125 mg tablet TAKE 1 TABLET BY MOUTH EVERY 8 HOURS FOR 10 DAYS active Not Available Not Available No t Available oxycodone 5 mg tablet PLEASE SEE ATTACHED FOR DETAILED DIRECTION S active Not Available Not Available No t Available omeprazole magnesium 20 mg tablet,kiel yed release Omeprazol e 20 MG Oral Tablet Delayed Release Active, Shorty lezama, 01/23/19 16:16:08 06/11 completed Not Available Not Available Not Available lidocaine (PF) 10 mg/mL (1 %) injection solution 01/14 completed Not Available Not Available Not Available fenofibrate nanocrystal lized 48 mg tablet TAKE 1 TABLET BY MOUTH EVERY DAY active Not Available Not Available No t Available cholecalcif agus (vitamin D3) 50 mcg (2,000 unit) capsule Take 1 caplet by mouth 2 (two) times a day. active Not Available Not Available No t Available Bacillus coagulans-i nulin 1 billion cell-250 mg capsule Probiotic Oral Capsule TAKE 1 CAPSULE DAILY Started 27-Oct-19 ActiveShorty, 10/26/17 0:00:00 EDT 06/16 completed Not Available Not Available Not Available Aubagio 14 mg tablet Take 14 mg by mouth every evening. active Not Available Not Available No t Available Paxlovid 300 mg (150 mg x 2)-100 mg tablets in a dose pack ALL 3 TABLETS TAKEN TOGETHER TWICE DAILY FOR 5 DAYS, WITH OR WITHOUT FOOD active Not Available Not Available No t Available Vitals Date Recorded Body weight Body mass index (BMI) Body height Provider Name and Address Organization Details Last Updated DateTime 09/10/2022 69216.32 g 32.5 kg/m2 175.26 cm Sotero Johnson [place] - [facility] 09/10/2022 08:37:48 Date Recorded Body height Provider Name an d Address Organization Details Last Updated DateTime 09/28/2022 175.26 cm Nayely Falcon [place] - [facility] 09/28/2022 16:28:43 Social History None recorded. Functional Status None recorded. Mental Status None recorded. Family History Nothing Reported. Medical History No medical history recorded. Immunizations Vaccine Type Date Status Note Provider Nam e and Address Organization Details Recorded Time COVID-19, mRNA, LNP-S, PF, 30 mcg/0.3 mL dose 08/07/2020 completed Not Available [facility] 5 06:17:17 COVID-19, mRNA, LNP-S, PF, 30 mcg/0.3 mL dose 08/28/2020 completed Not Available [facility] 5 06:17:17 COVID-19, mRNA, LNP-S, PF, 30 mcg/0.3 mL dose 10/08/2020 completed Not Available [facility] 5 06:17:17 COVID-19, mRNA, LNP-S, PF, 30 mcg/0.3 mL dose 09/17/2021 completed Not Available [facility] 5 06:17:17 COVID-19, mRNA, LNP-S, PF, 30 mcg/0.3 mL dose 02/26/2022 completed Not Available [facility] 5 06:17:17 Past Encounters Encounter ID Performer Location Encounter Start Date Encounter Closed Date Diagnosis/Indication Diagnosis SNOMED-CT Code Diagnosis ICD10 Code Diagnosis IMO Codes Diagnosis Note [id number] KOMAL COLBERT PA-C [address] [address] 09/10/2022 08:20:12 09/10/2022 08:57:43 Postoperative care 248149908 Z48.89 History of total replacement of left hip joint 2872915996 491422 Z96.642 [id number] MD MARY Rodriguez [address] [address] 09/28/2022 15:57:28 09/28/2022 17:10:16 History of left hip replacement 3082694525 455712 Z96.642 Dislocatio n of hip joint prosthesis 477050424 Z96.649 [id number] MD MARY Rodriguez [address] [address] 11/09/2022 14:42:55 11/09/2022 15:17:26 Dislocation of hip joint prosthesis 385401201 Z96.649 Health Concerns Section Related Observation LastModified by Organization Detai ls LastModified Time None Recorded Concern Status LastModified by Organization Details LastModified Time None Recorded Advance Directives Directive None Recorded Payers Insurance Date Sequence Insurance Name Policy Number Policy Sung Covered Member ID Sung Member ID Guarantor Name 04/26/2023 2 [place] [id number] Hernesto Toro [id number] Hernesto Toro 12/10/2022 1 [facility] - DOS PRIOR TO 2022 - MEDICARE [place]AGE [place] (MEDICARE REPLACEMENT/ADV ANTAGE - HMO) Hernesto Toro [id number] Hernesto Toro 04/26/2023 1 [place]: [employer] Hernesto Toro [id number] Hernesto Toro Notes Date Note Type Note [...] KOMAL COLBERT PA-C [address], [place], [address], [place] [facility] 09/11/2022 12:19:43 09/28/2022 text/html HPI: Patient [...] a anterior dislocation. He went to the [facility] emergency department and this was closed reduced. [...] Louie Benítez MD [address], [place], [address], [place] [facility] 09/29/2022 05:37:00 11/09/2022 text/html William is coming in for follow-up for his left hip. Unfortunately [...] Louie Benítez MD [address], [place], [address], [place] [facility] 11/09/2022 17:05:24
--- OUTSIDE RECORDS SUMMARY | 2025-03-09 07:44 | XMS_ITS | Encounter Summary ---
Author Organization [facility] Address [address] [place] [address] Care Team Providers Care Cancer Spec Name Role Phone Sophia Monroe MD Primary Care Provider Nahum Benavides MD Unavailable Cuba Claire MD Unavailable Alan Harris MD Unavailable [phone] Jessica Nelson MD Unavailable [phone] Sophia Monroe MD Unavailable [phone] Encounter Details Date Type Department Care Team (Late st Contact Info) Description 01/25/[address] [address] Sophia Monroe MD [address] [place], [place] [id number] Social History Tobacco Use Types Packs/Day Years [...] Description 07/05/2025 8:00 AM EST Office Visit [facility] 100 [facility] 101 [place] [address] Sophia Monroe MD [address] [place] [address] documented as of this encounter Visit Diagnoses Not on filedocumented in this encounter Care Teams Cancer Spec Relationship Specialty Start Date End Date Sophia Monroe MD [address] [place] [address] PCP - General Internal Medicine 01/16/24 Sophia Monroe MD [address] [place] [address] PCP - MSSP Attributed 06/13/24 Nahum Benavides MD [address] [place] [address] [address] [place] [address] Neurology 01/17/24 Cuba Claire MD 100 [facility] 120 [place] [address] Referring Provider 01/17/24 Alan Harris MD [address] [place] [address] [address] Referring Provider Surgery, Orthopedic 01/17/24 Jessica Nelson MD [address] [place] [address] [place] [address] Cardiovascular Disease 04/03/24 documented as of this encounter
--- OUTSIDE RECORDS SUMMARY | 2025-03-09 07:44 | XMS_ITS | Encounter Summary ---
Author Organization [facility] Address [address] [place] [address] Care Team Providers Care Marketing Project Manager Name Role Phone Sophia Monroe MD Primary Care Provider [phone] Nahum Benavides MD Unavailable Cuba Claire MD Unavailable [phone] Alan Harris MD Unavailable [phone] Jessica Nelson MD Unavailable [phone] Sophia Monroe MD Unavailable [phone] Encounter Details Date Type Department Care Team (Late st Contact Info) Description 03/02/2024 Scanned Document [facility] [address] [place] [address] Urology, Scan Social History Tobacco Use Types [...] Description 07/05/2025 8:00 AM EST Office Visit [address] [place] [address] Sophia Monroe MD [address] [place], [place] [address] documented as of this encounter Visit Diagnoses Not on filedocumented in this encounter Care Teams Marketing Project Manager Relationship Specialty Start Date End Date Sophia Monroe MD [address], [place] [address] PCP - General Internal Medicine 01/16/24 Sophia Monroe MD [address] [place] [address] PCP - MSSP Attributed 06/13/24 Nahum Benavides MD [address] [place] [address] [address] [place] [address] Neurology 01/17/24 Cuba Claire MD 100 [facility] 120 [place] [address] Referring Provider 01/17/24 Alan Harris [facility] [place] [address] Referring Provider Surgery, Orthopedic 01/17/24 Jessica Nelson MD [address] [place] [address] [address] [place] [address] Cardiovascular Disease 04/03/24 documented as of this encounter
--- OUTSIDE RECORDS SUMMARY | 2025-03-09 07:44 | XMS_ITS | Clinical Summary ---
Author Organization [facility] [place] [address] Care Team Providers Care Deer Farm Worker Name Role Phone None Primary Care Provider [...] 06/09 Covid-19 Vaccine (1 - 2023- season) 2025 Influenza (Flu) vaccine (1 o f 1 - Influenza standard series) 02/11/2025 Insurance [facility] MEDICARE Care Teams Deer Farm Worker Relationship Specialty Start Date End Date None None PCP - General 10/24/22
--- OUTSIDE RECORDS SUMMARY | 2025-03-09 07:44 | XMS_ITS | Clinical Summary ---
Author Organization [facility] Address [address] [place] [address] Care Team Providers Care Animal Cruelty Investigator Name Role Phone Marilu Quesada Primary Care Provider [phone] Surgical History Surgery Date Site/Laterality Comments CHOLECYSTECTOMY PROCEDURE:CHOLECYSTECTOMY SHOULDER SURGERY Right PROCEDURE:SHOULDER SURGERY;COMMENT:2015 CARDIAC CATHETERIZATION 2013 PROCEDURE:CARDIAC CATHETERIZATION COLONOSCOPY PROCEDURE:COLONOSCOPY TOTAL HIP ARTHROPLASTY 12/11/2020 Right PROCEDURE:TOTAL HIP ARTHROPLASTY;COMMENT:Procedur e: REPLACEMENT TOTAL HIP; Surgeon: Gerson Schwartz MD; Location: [facility] ([facility]); Service: Orthopedics; Laterality: Right; TOTAL HIP ARTHROPLASTY 04/02/2021 Left PROCEDURE:TOTAL HIP ARTHROPLASTY;COMMENT:Procedur e: REPLACEMENT TOTAL HIP; Surgeon: Gerson Schwartz MD; Location: [facility] ([facility]); Service: Orthopedics; Laterality: Left; REVISION TOTAL HIP CUP AND/O R STEM 04/11/2021 Left PROCEDURE:REVISION TOTAL HIP CUP AND/OR STEM;COMMENT:Procedure: REVISION TOTAL HIP COMPONENTS - PREIPROSTHETIC FRACTURE; Surgeon: Louie Benítez MD; Location: [facility] ([facility]); Service: Orthopedics; Laterality: Left; TONSILLECTOMY PROCEDURE:TONSILLECTOMY;COMME NT:as a child REVISION TOTAL HIP CUP AND/O R STEM 07/08/2022 Left PROCEDURE:REVISION TOTAL HIP CUP AND/OR STEM;COMMENT:Procedure: REVISION TOTAL HIP COMPONENTS; Surgeon: Louie Benítez MD; Location: [facility] ([facility]); Service: Orthopedics; Laterality: Left; Medical History Medical History Date Comments 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 CU[place] LAD no stent thrombosis after this procedure Hypertension DX:Hypertension Lyme disease DX:Lyme disease Coronary artery disease DX:Coron sri artery disease;COMMENT:2013 Multiple sclerosis DX:Multiple s clerosis (HCC) Gastroesophageal reflux dise ase without esophagitis [...] 05/16/2022 Social Influencers of Health Screening 05/16/2022 Depression Screening 06/13/2024 COVID-19 Vaccine ( season) 2025 02/26/2022, 09/17/2021, 10/08/2020, Additional history exists Influenza [...] this topic Medical Devices Implanted Type Area Licensed Journeyman Electrician Device Identifier Shelf Expiration Date Model / Serial / Lot Lp Hex Screw 6.5x30mm Stry-Howm [id number] 78 Implanted:Qty: 1 on 12/11/2020 by Gerson Schwartz MD Right: Hip [employer] 05/27/2025 3546-7147 / / [id number] Tritanium Cluster Hole Shell 58mm Stry-How 629-58-51y-770 475 Implanted:Qty: 1 on 12/11/2020 by Gerson Schwartz MD Right: Hip [employer] 07/09/2025 702-04-58F / / [id number] Lp Hex Screw 6.5x25mm Stry-Howm 3963-7060-3732 58 Implanted:Qty: 1 on 12/11/2020 by Gerson Schwartz MD Right: Hip [employer] 08/29/2025 7096-1547 / / [id number] Lp Hex Screw 6.5x25mm Stry-Howm 4883-5514-7635 58 Implanted:Qty: 1 on 12/11/2020 by Gerson Schwartz MD Right: Hip [employer] 08/29/2025 9547-7908 / / [id number] Hip Insrt Poly X3 10deg 36mm Stry-Howm 698-20-85r-287 348 Implanted:Qty: 1 on 12/11/2020 by Gerson Schwartz MD Right: Hip [employer] 03/25/2025 623-10-36F / / [id number] Stem Hip Neck Angle 127 Degree Accolade Ii Sz6 - [id number] Implanted:Qty: 1 on 12/11/2020 by Gerson Schwartz MD Right: Hip [employer] 10/20/2025 7438-9980 / / [id number] Hip Head Delta Biolox 36mm -5 Stry-Howm 3332-0-700-549 190 Implanted:Qty: 1 on 12/11/2020 by Gerson Schwartz MD Right: Hip [employer] 09/19/2025 6570-0-036 / / [id number] Lp Hex Screw 6.5x20mm Stry-Howm 7809-9282-5109 57 Implanted:Qty: 1 on 04/02/2021 by Gerson Schwartz MD Left: Hip [employer] [id number] 10/15/2025 2308-8005 / / [id number] Hip Stem Accolade Ii Sz6 Stry-Howm 7788-5920-4725 19 Implanted:Qty: 1 on 04/02/2021 by Gerson Schwartz MD Left: Hip [employer] [id number] 01/15/20261801-0522 / / [id number] Tritanium Cluster Hole Shell 56mm Stry-Howm 582-67-82y-770 474 Implanted:Qty: 1 on 04/02/2021 by Gerson Schwartz MD Left: Hip [employer] [id number] 11/20/2025 702-04-56F / / [id number] Lp Hex Screw 6.5x30mm Stry-How 8650-9399-2207 78 Implanted:Qty: 1 on 04/02/2021 by Gerson Schwartz MD Left: Hip [employer] [id number] 11/03/2025 2198-9322 / / [id number] Hip Cabl Coblt Chrm 2mm W Clmp Smn-Orth 03 Implanted:Qty: 1 on 04/11/2021 by Louie Benítez MD Left: Hip [employer] 09/30/20307711-3065 / / [id number] Hip Cabl Coblt Chrm 2mm W Clmp Smn-Orth 03 Implanted:Qty: 1 on 04/11/2021 by Louie Benítez MD Left: Hip [employer] 05/15/20308768-3343 / / [id number] Hip Cabl Coblt Chrm 2mm W Clmp Smn-Orth 03 Implanted:Qty: 1 on 04/11/2021 by Louie Benítez MD Left: Hip [employer] 01/03/203171338444-9116 / / [id number] Hip Cabl Coblt Chrm 2mm W Clmp Smn-Orth 03 Implanted:Qty: 1 on 04/11/2021 by Louie Benítez MD Left: Hip [employer] 01/03/20312240-7285 / / [id number] Slvls Monolithic Rev [id number] Smn-Orth [id number] 9 Implanted:Qty: 1 on 04/11/2021 by Louie Benítez MD Left: Hip [employer] 08/27/2028 [id number] / / [id number] Hip Hd Fem 12 14 36mm +4mm Smn-Orth 1826-4199-9764 55 Implanted:Qty: 1 on 04/11/2021 by Louie Benítez MD Left: Hip [employer] 02/07/2031 8106-3545 / / [id number] Hip Hd Fem 12 14 Tapr 28mm +8 [facility]-Orth 1281-8012-3182 37 Implanted:Qty: 1 on 07/08/2022 by Louie Benítez MD Left: Hip [employer] 07/27/2031 0282-6994 / / [id number] 28mm Id, 46mm Od Dual Mobility Insert Xlpe Implanted:Qty: 1 on 07/08/2022 Left: Hip [employer] 11/25/2030 [id number] / / [id number] Hip Insrt Mod Dl Mobility 46mm [facility] 588-35-52u-551 384 Implanted:Qty: 1 on 07/08/2022 by Louie Benítez MD [employer] 626-00-46F / / Care Teams Animal Cruelty Investigator Relationship Specialty Start Date End Date Marilu Quesada PA [address] [place] [address] PCP - General 07/08/22
== END 2025-03-09 07:42 | disposition home or self-care (01) ==
LOC: HO.CT 07:41
PROVIDERS: PCP Internal Medicine; Visit Provider Physician Assistant
DX: S52.121A Displaced fracture of head of right radius, initial encounter for closed fracture (principal)
CPT/HCPCS: 73200

== ENCOUNTER 2025-03-11 08:32 | Outpatient (AMB) | payer MEDICARE, SELFPAY ==
--- NOTE | 2025-03-11 08:52 | A.OFFVIS_ITS ---
Intake Visit Reasons: OV Right radial head Fx 10/19/24 - CT Review Intake Note: Hernesto is a 74 year old right hand dominant male who presents today for a follow up of his Right Radial Head Fracture 10/19/24. Injury occurred due to a fall in his garage. Patient has continued pain and limited ROM. A CT Scan was ordered to further evaluate. CT Scan done 03/09 - Report not yet available Allergies metoprolol Allergy (Verified 12/25/24 08:36) Hives bee sting Allergy (Uncoded 12/25/24 08:36) Swelling HPI HPI OV Right radial head Fx 10/19/24 - CT Review: Details: Hernesto is a 74 year old right hand dominant male who presents today for a follow up of his Right Radial Head Fracture 10/19/24. Injury occurred due to a fall in his garage. Patient has continued pain and limited ROM. A CT Scan was ordered to further evaluate. Currently patient reports that he is doing well, he has random sharp pain with random activities. He is most frustrated about not being able to reach full extension and having weakness of the arm. Denies numbness and tingling. He describes difficulty with repetitive lifting activities because of pain but denies locking or catching. CT Scan done 03/09 - Report not yet available ON LICENSE OF [facility] Social History Alcohol intake: never Patient Tobacco Use Status: Never used Tobacco Current occupational status: retired Current occupation: right hand dominant Physical Exam Extrem Other: 20-110 70 deg supination 80 pronation Mild vague TTP Results Reviewed Results Reviewed: I personally reviewed relevant radiographs. Age-indeterminate intra-articular fracture of the anteromedial aspect of the radial head with up to 1.5 mm step-off of the articular surface. Correlate clinically for focal tenderness. Of note, an intra-articular fracture of the radial aspect of the radial head was seen on the prior radiographs. Assessment & Plan Assessment & Plan (1) Right radial head fracture: Code(s): S52.121A - Displaced fracture of head of right radius, initial encounter for closed fracture Category: Medical Plan: Hernesto is a 74-year-old gentleman who is approximately 5 months status post radial head fracture. He has a small displaced fracture without mechanical symptoms. I reviewed treatment options for him. In my opinion if mechanical symptoms symptoms were present that would be an indication for surgery or if debilitating pain or loss of function were present. He does have some stiffness in extension and I think that will not improve with surgery. I discussed this with him. At this time he will let me know if things get worse but he can resume gentle activity as tolerated. Coding Level of Care Code Est Pt Level 4 (28304) Diagnoses Right radial head fracture S52.121A
--- OUTSIDE RECORDS SUMMARY | 2025-03-11 08:55 | XMS_ITS | Encounter Summary ---
Author Organization [facility] Address [address] [place] [address] Care Team Providers Care Production Line Name Role Phone Sophia Monroe MD Primary Care Provider [phone] Nahum Benavides MD Unavailable Cuba Claire MD Unavailable [phone] Alan Harris MD Unavailable [phone] Jessica Nelson MD Unavailable [phone] Sophia Monroe MD Unavailable [phone] Encounter Details Date Type Department Care Team (Late st Contact Info) Description 10/22/2024 Scanned Document [facility] [address] [place] [address] Urology, Scan Social History Tobacco Use Types [...] Description 07/05/2025 8:00 AM EST Office Visit [address] [place] [address] Sophia Monroe MD [address] [place], [place] [address] documented as of this encounter Visit Diagnoses Not on filedocumented in this encounter Care Teams Production Line Relationship Specialty Start Date End Date Sophia Monroe MD [address] [place], [place] [address] PCP - General Internal Medicine 01/16/24 Sophia Monroe MD [address] [place] [address] PCP - MSSP Attributed 06/13/24 Nahum Benavides MD [address] [place] [address] [address] [place] [address] Neurology 01/17/24 Cuba Claire MD 100 [facility] 120 [place] [address] Referring Provider 01/17/24 Alan Harris MD [address] [facility] [address] [address] Referring Provider Surgery, Orthopedic 01/17/24 Jessica Nelson MD [address] [place] [address] [address] [place] [address] Cardiovascular Disease 04/03/24 documented as of this encounter
--- OUTSIDE RECORDS SUMMARY | 2025-03-11 08:55 | XMS_ITS | Encounter Summary ---
Author Organization [facility] Address [address] [place] [address] Care Team Providers Care Esl Instructor Name Role Phone Sophia Monroe MD Primary Care Provider [phone] Nahum Benavides MD Unavailable Cuba Claire MD Unavailable Alan Harris MD Unavailable [phone] Jessica Nelson MD Unavailable [phone] Sophia Monroe MD Unavailable [phone] Encounter Details Date Type Department Care Team (Late st Contact Info) Description 01/25/[address] [address] Sophia Monroe MD [address] [place] [address] Social History Tobacco Use Types Packs/Day Years [...] EST Office Visit [facility] 100 [facility] 101 [place] [address] Sophia Monroe MD [address] [place] [address] documented as of this encounter Visit Diagnoses Not on filedocumented in this encounter Care Teams Esl Instructor Relationship Specialty Start Date End Date Sophia Monroe MD [address] [place] [address] PCP - General Internal Medicine 01/16/24 Sophia Monroe MD [address] [place] [address] PCP - MSSP Attributed 06/13/24 Nahum Benavides MD [address] [place] [address] [address] [place] [address] Neurology 01/17/24 Cuba Claire MD 100 [facility] 120 [place] [address] Referring Provider 01/17/24 Alan Harris MD [address] [place] [address] [address] Referring Provider Surgery, Orthopedic 01/17/24 Jessica Nelson MD [address] [place] [address] [place] [address] Cardiovascular Disease 04/03/24 documented as of this encounter
--- OUTSIDE RECORDS SUMMARY | 2025-03-11 08:55 | XMS_ITS | Clinical Summary ---
Author Organization [facility] Address [address] [place] [address] Care Team Providers Care Signal Apprentice Name Role Phone Marilu Quesada PA-C Primary [...] this topic Medical Devices Implanted Type Area Ring Maker Device Identifier Shelf Expiration Date Model / Serial / Lot Lp Hex Screw 6.5x30mm Stry-Howm 4130-8143-5942 78 - [id number] Implanted:Qty: 1 on 12/11/2020 by Gerson Schwartz MD at [facility] Right: Hip [employer] 05/27/2025 4714-2549 / / [id number] Tritanium Cluster Hole Shell 58mm Stry-Howm 625-59-91j-770 475 - [id number] Implanted:Qty: 1 on 12/11/2020 by Gerson Schwartz MD at [facility] Right: Hip [employer] 07/09/2025 702-04-58F / / [id number] Lp Hex Screw 6.5x25mm Stry-Howm 9602-3322-5608 58 - [id number] Implanted:Qty: 1 on 12/11/2020 by Gerson Schwartz MD at [facility] Right: Hip [employer] 08/29/2025 3768-3983 / / [id number] Lp Hex Screw 6.5x25mm Stry-Howm 8743-4974-1106 58 - [id number] Implanted:Qty: 1 on 12/11/2020 by Gerson Schwartz MD at [facility] Right: Hip [employer] 08/29/2025 8438-8595 / / [id number] Hip Insrt Poly X3 10deg 36mm Stry-Howm 916-39-00k-287 348 - [id number] Implanted:Qty: 1 on 12/11/2020 by Gerson Schwartz MD at [facility] Right: Hip [employer] 03/25/2025 623-10-36F / / [id number] Stem Hip Neck Angle 127 Degree Accolade Ii Sz6 - [id number] - [id number] Implanted:Qty: 1 on 12/11/2020 by Gerson Schwartz MD at [facility] Right: Hip [employer] 10/20/20251101-0447 / / [id number] Hip Head Delta Biolox 36mm -5 Stry-Howm 3661-6-540-549 190 - [id number] Implanted:Qty: 1 on 12/11/2020 by Gerson Schwartz MD at [facility] Right: Hip [employer] 09/19/2025 6570-0-036 / / [id number] Lp Hex Screw 6.5x20mm Stry-Howm 2195-9486-9688 57 - [id number] Implanted:Qty: 1 on 04/02/2021 by Gerson Schwartz MD at [facility] Left: Hip [employer] [id number] 10/15/2025 3187-1190 / / [id number] Hip Stem Accolade Ii Sz6 Stry-Howm 2064-3507-6482 19 - [id number] Implanted:Qty: 1 on 04/02/2021 by Gerson Schwartz MD at [facility] Left: Hip [employer] [id number] 01/15/202667206746-6535 / / [id number] Tritanium Cluster Hole Shell 56mm Stry-Howm 265-92-31i-770 474 - [id number] Implanted:Qty: 1 on 04/02/2021 by Gerson Schwartz MD at [facility] Left: Hip [employer] [id number] 11/20/2025 702-04-56F / / [id number] Lp Hex Screw 6.5x30mm Stry-Howm 4521-5153-1041 78 - [id number] Implanted:Qty: 1 on 04/02/2021 by Gerson Schwartz MD at [facility] Left: Hip [employer] [id number] 11/03/2025 6415-5510 / / [id number] Hip Cabl Coblt Chrm 2[facility] 03 - [id number] Implanted:Qty: 1 on 04/11/2021 by Louie Benítez MD at [facility] Left: Hip [employer] 09/30/20303887-1837 / / [id number] Hip Cabl Coblt Chrm 2mm W Clmp Smn-Orth 03 - [id number] Implanted:Qty: 1 on 04/11/2021 by Louie Benítez MD at [facility] Left: Hip [employer] 05/15/2030 6592-7745 / / [id number] Hip Cabl Coblt Chrm 2mm W Clmp Smn-Orth 03 - [id number] Implanted:Qty: 1 on 04/11/2021 by Louie Benítez MD at [facility] Left: Hip [employer] 01/03/20311280-9294 / / [id number] Hip Cabl Coblt Chrm 2mm W Clmp Smn-Orth 03 - [id number] Implanted:Qty: 1 on 04/11/2021 by Louie Benítez MD at [facility] Left: Hip [employer] 01/03/20312034-8352 / / [id number] Slvls Monolithic Rev [id number] Smn-Orth 28423422-07935 9 - [id number] Implanted:Qty: 1 on 04/11/2021 by Louie Benítez MD at [facility] Left: Hip [employer] 08/27/2028 [id number] / / [id number] Hip Hd Fem 12 14 36mm +4mm Smn-Orth 6046-0648-8564 55 - [id number] Implanted:Qty: 1 on 04/11/2021 by Louie Benítez MD at [facility] Left: Hip [employer] 02/07/2031 3834-2911 / / [id number] Hip Hd Fem 12 14 Tapr 28mm +8 Smn-Orth 8574-1062-1825 37 - [id number] Implanted:Qty: 1 on 07/08/2022 by Louie Benítez MD at [facility] Left: Hip [employer] 07/27/2031 4369-8548 / / [id number] 28mm Id, 46mm Od Dual Mobility Insert Xlpe Implanted:Qty: 1 on 07/08/2022 at [facility] Left: Hip [employer] 11/25/2030 [id number] / / [id number] Hip Insrt Mod Dl Mobility 46mm Stry-Howm 123-30-91t-551 384 - [id number] Implanted:Qty: 1 on 07/08/2022 by Louie Benítez MD at [facility] [employer] 626-00-46F / / Explanted Type Area Ring Maker Device Identifier Shelf Expiration Date Model / Serial / Lot Hip Insrt Poly X3 10deg 36mm Stry-Howm 258-63-85m-287 348 - [id number] Implanted:Qty: 1 on 04/02/2021 by Gerson Schwartz MD at [facility] Explanted:Qty: 1 on 07/08/2022 at [facility] Left: Hip [employer] [id number] 08/11/2024 623-10-36F / / [id number] Hip Head Delta Biolox 36mm -5 Stry-Howm 8052-1-566-549 190 - [id number] Implanted:Qty: 1 on 04/02/2021 by Gerson Schwartz MD at [facility] Explanted:Qty: 1 on 07/08/2022 at [facility] Left: Hip [employer] [id number] 02/01/2026 6570-0-036 / / [id number] 6.5mm Low Profile Hex Screw Explanted:Qty: 1 on 07/08/2022 at [facility] [employer] 05/03/2027 5306-0670 / / [id number] Description:Not implanted, u sed to remove previous implanted liner Advance Directives For more information, please contact: [phone] Latest Code Status on File Code Status [...] way: discussion with patient . Care Teams Signal Apprentice Relationship Specialty Start Date End Date Marilu Quesada PA-C PCP - General Medical Services 07/08/22
--- OUTSIDE RECORDS SUMMARY | 2025-03-11 08:55 | XMS_ITS | Encounter Summary ---
Author Organization [facility] Address [address] [place] [address] Care Team Providers Care Car Icer Name Role Phone Sophia Monroe MD Primary Care Provider [phone] Nahum Benavides MD Unavailable Cuba Claire MD Unavailable [phone] Alan Harris MD Unavailable Jessica Nelson MD Unavailable [phone] Sophia Monroe MD Unavailable [phone] Encounter Details Date Type Department Care Team (Late st Contact Info) Description 01/20/2024 Scanned Document [facility] [address] [place] [address] Urology, Scan Social History Tobacco Use Types [...] Description 07/05/2025 8:00 AM EST Office Visit [address] [place] [address] Sophia Monroe MD [address] [place], [place] [address] documented as of this encounter Visit Diagnoses Not on filedocumented in this encounter Care Teams Car Icer Relationship Specialty Start Date End Date Sophia Monroe MD [address] [place], [place] [address] PCP - General Internal Medicine 01/16/24 Sophia Monroe MD [address] [place] [address] PCP - MSSP Attributed 06/13/24 Nahum Benavides MD [address] [place] [address] [address] [place] [address] Neurology 01/17/24 Cuba Claire MD 100 [facility] 120 [place] [address] Referring Provider 01/17/24 Alan Harris MD [address] [facility] [place] [address] Referring Provider Surgery, Orthopedic 01/17/24 Jessica Nelson MD [address] [place] [address] [address] [place] [address] Cardiovascular Disease 04/03/24 documented as of this encounter
--- OUTSIDE RECORDS SUMMARY | 2025-03-11 08:55 | XMS_ITS | Clinical Summary ---
Author Organization [facility] Address [address] [place] [address] Care Team Providers Care Shredding Specialist Name Role Phone Marilu Quesada Primary Care Provider [phone] Surgical History Surgery Date Site/Laterality Comments CHOLECYSTECTOMY PROCEDURE:CHOLECYSTECTOMY SHOULDER SURGERY Right PROCEDURE:SHOULDER SURGERY;COMMENT:2015 CARDIAC CATHETERIZATION 2013 PROCEDURE:CARDIAC CATHETERIZATION COLONOSCOPY PROCEDURE:COLONOSCOPY TOTAL HIP ARTHROPLASTY 12/11/2020 Right PROCEDURE:TOTAL HIP ARTHROPLASTY;COMMENT:Procedur e: REPLACEMENT TOTAL HIP; Surgeon: Gerson Schwartz MD; Location: [facility] Service: Orthopedics; Laterality: Right; TOTAL HIP ARTHROPLASTY 04/02/2021 Left PROCEDURE:TOTAL HIP ARTHROPLASTY;COMMENT:Procedur e: REPLACEMENT TOTAL HIP; Surgeon: Gerson Schwartz MD; Location: [facility] Service: Orthopedics; Laterality: Left; REVISION TOTAL HIP CUP AND/O R STEM 04/11/2021 Left PROCEDURE:REVISION TOTAL HIP CUP AND/OR STEM;COMMENT:Procedure: REVISION TOTAL HIP COMPONENTS - PREIPROSTHETIC FRACTURE; Surgeon: Louie Benítez MD; Location: [facility]); Service: Orthopedics; Laterality: Left; TONSILLECTOMY PROCEDURE:TONSILLECTOMY;COMME NT:as a child REVISION TOTAL HIP CUP AND/O R STEM 07/08/2022 Left PROCEDURE:REVISION TOTAL HIP CUP AND/OR STEM;COMMENT:Procedure: REVISION TOTAL HIP COMPONENTS; Surgeon: Louie Benítez MD; Location: [facility] Service: Orthopedics; Laterality: Left; Medical History Medical History Date Comments 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 CUBA LAD no stent thrombosis after this [...] cm (5' 6.3 ) 06/16/2022 9:11 AM ES T Body Mass Index 38.71 06/16/2022 9:11 AM [...] this topic Medical Devices Implanted Type Area Medical Lab Technologist Device Identifier Shelf Expiration Date Model / Serial / Lot Lp Hex Screw 6.5x30mm Stry-Howm [id number] 78 Implanted:Qty: 1 on 12/11/2020 by Gerson Schwartz MD Right: Hip [employer] 05/27/2025 5964-3728 / / [id number] Tritanium Cluster Hole Shell 58mm Stry-Howm [id number] 475 Implanted:Qty: 1 on 12/11/2020 by Gerson Schwartz MD Right: Hip [employer] 07/09/2025 702-04-58F / / [id number] Lp Hex Screw 6.5x25mm Stry-Howm [id number] 58 Implanted:Qty: 1 on 12/11/2020 by Gerson Schwartz MD Right: Hip [employer] 08/29/2025 6511-5757 / / [id number] Lp Hex Screw 6.5x25mm Stry-Howm [id number] 58 Implanted:Qty: 1 on 12/11/2020 by Gerson Schwartz MD Right: Hip [employer] 08/29/2025 4795-0420 / / [id number] Hip Insrt Poly X3 10deg 36mm Stry-Howm [id number] 348 Implanted:Qty: 1 on 12/11/2020 by Gerson Schawrtz MD Right: Hip [employer] 03/25/2025 623-10-36F / / [id number] Stem Hip Neck Angle 127 Degree Accolade Ii Sz6 - [id number] Implanted:Qty: 1 on 12/11/2020 by Gerson Schwartz MD Right: Hip [employer] 10/20/2025 4278-3578 / / [id number] Hip Head Delta Biolox 36mm -5 Stry-Howm [id number] 190 Implanted:Qty: 1 on 12/11/2020 by Gerson Schwartz MD Right: Hip [employer] 09/19/2025 6570-0-036 / / [id number] Lp Hex Screw 6.5x20mm Stry-Howm [id number] 57 Implanted:Qty: 1 on 04/02/2021 by Gerson Schwartz MD Left: Hip [employer] [id number] 10/15/2025 4095-1998 / / [id number] Hip Stem Accolade Ii Sz6 Stry-Howm [id number] 19 Implanted:Qty: 1 on 04/02/2021 by Gerson Schwartz MD Left: Hip [employer] [id number] 01/15/20263727-3554 / / [id number] Tritanium Cluster Hole Shell 56mm Stry-Howm [id number] Implanted:Qty: 1 on 04/02/2021 by Gerson Schwartz MD Left: Hip [employer] [id number] 11/20/2025 702-04-56F / / [id number] Lp Hex Screw 6.5x30mm Stry-How 4845-2257-0669 78 Implanted:Qty: 1 on 04/02/2021 by Gerson Schwartz MD Left: Hip [employer] [id number] 11/03/2025 8970-4250 / / [id number] Hip Cabl Coblt Chrm 2mm W Clmp Smn-Orth 03 Implanted:Qty: 1 on 04/11/2021 by Louie Benítez MD Left: Hip [employer] 09/30/20302448-7673 / / [id number] Hip Cabl Coblt Chrm 2mm W Clmp Smn-Orth 03 Implanted:Qty: 1 on 04/11/2021 by Louie Benítez MD Left: Hip [employer] 05/15/2030 6029-7086 / / [id number] Hip Cabl Coblt Chrm 2mm W Clmp Smn-Orth 03 Implanted:Qty: 1 on 04/11/2021 by Louie Benítez MD Left: Hip [employer] 01/03/203171338024-6017 / / [id number] Hip Cabl Coblt Chrm 2mm W Clmp Smn-Orth 03 Implanted:Qty: 1 on 04/11/2021 by Louie Benítez MD Left: Hip [employer] 01/03/20315392-4031 / / [id number] Slvls Monolithic Rev Hrhp863du Smn-Orth [id number] 9 Implanted:Qty: 1 on 04/11/2021 by Louie Benítez MD Left: Hip [employer] 08/27/2028 [id number] / / [id number] Hip Hd Fem 12 14 36mm +4mm Smn-Orth [id number] 55 Implanted:Qty: 1 on 04/11/2021 by Louie Benítez MD Left: Hip [employer] 02/07/2031 2273-4637 / / [id number] Hip Hd Fem 12 14 Tapr 28mm +8 Smn-Orth 5810-1917-5709 37 Implanted:Qty: 1 on 07/08/2022 by Louie Benítez MD Left: Hip [employer] 07/27/2031 0359-8516 / / [id number] 28mm Id, 46mm Od Dual Mobility Insert Xlpe Implanted:Qty: 1 on 07/08/2022 Left: Hip [employer] 11/25/2030 [id number] / / [id number] Hip Insrt Mod Dl Mobility 46mm [facility] [id number] Implanted:Qty: 1 on 07/08/2022 by Louie Benítez MD [employer] 626-00-46F / / Care Teams Shredding Specialist Relationship Specialty Start Date End Date Marilu Quesada PA [address] [place] [address] PCP - General 07/08/22
--- OUTSIDE RECORDS SUMMARY | 2025-03-11 08:55 | XMS_ITS | Encounter Summary ---
Author Organization [facility] Address [address] [place] [address] Care Team Providers Care Facility Maintenance Technician Name Role Phone Sophia Monroe MD Primary Care Provider Nahum Benavides MD Unavailable Cuba Claire MD Unavailable Alan Harris MD Unavailable [phone] Jessica Nelson MD Unavailable [phone] Sophia Monroe MD Unavailable [phone] Encounter Details Date Type Department Care Team (Late st Contact Info) Description 07/23/2024 Scanned Document [address] [id number] Kelsi Bonner MD [address] [place] [address] Social History Tobacco Use Types Packs/Day [...] Description 07/05/2025 8:00 AM EST Office Visit [facility] 100 [facility] [address] [place] [address] Sophia Monroe MD [address] [place] [address] documented as of this encounter Visit Diagnoses Not on filedocumented in this encounter Care Teams Facility Maintenance Technician Relationship Specialty Start Date End Date Sophia Monroe MD [address] [place] [address] PCP - General Internal Medicine 01/16/24 Sophia Monroe MD [address] [place] [address] PCP - MSSP Attributed 06/13/24 Nahum Benavides MD [address] [place] [address] [address] [place] [address] Neurology 01/17/24 Cuba Claire MD 100 [facility] [address] [place] [address] Referring Provider 01/17/24 Alan Harris MD [address] [place] [address] Referring Provider Surgery, Orthopedic 01/17/24 Jessica Nelson MD [address] [place] [address] [place] [address] Cardiovascular Disease 04/03/24 documented as of this encounter
--- OUTSIDE RECORDS SUMMARY | 2025-03-11 08:55 | XMS_ITS | Clinical Summary ---
Author Organization [facility] [place] [address] Care Team Providers Care Ironworker Helper Shop Name Role Phone None Primary Care Provider [...] - Influenza standard series) 02/11/[address] [facility] MEDICARE Care Teams Ironworker Helper Shop Relationship Specialty Start Date End Date None None PCP - General 10/24/22
--- OUTSIDE RECORDS SUMMARY | 2025-03-11 08:55 | XMS_ITS | Encounter Summary ---
Author Organization [facility] Address [address] [place] [address] Care Team Providers Care Owner Name Role Phone Sophia Monroe MD Primary Care Provider [phone] Nahum Benavides MD Unavailable Cuba Claire MD Unavailable [phone] Alan Harris MD Unavailable [phone] Jessica Nelson MD Unavailable [phone] Sophia Monroe MD Unavailable [phone] Encounter Details Date Type Department Care Team (Late st Contact Info) Description 05/01/2024 Scanned Document [address] [address] Primary Care, Scan Social History [...] Description 07/05/2025 8:00 AM EST Office Visit [address] [address] Sophia Monroe MD [address] [place] [address] documented as of this encounter Visit Diagnoses Not on filedocumented in this encounter Care Teams Owner Relationship Specialty Start Date End Date Sophia Monroe MD [address] [place] [address] PCP - General Internal Medicine 01/16/24 Sophia Monroe MD [address] [place] [address] PCP - MSSP Attributed 06/13/24 Nahum Benavides MD [address] [place] [address] [address] [place] [address] Neurology 01/17/24 Cuba Claire MD 100 [facility] [address] [place] [address] Referring Provider 01/17/24 Alan Harris MD [address] [address] Referring Provider Surgery, Orthopedic 01/17/24 Jessica Nelson MD [address] [place] [address] [place] [address] Cardiovascular Disease 04/03/24 documented as of this encounter
--- OUTSIDE RECORDS SUMMARY | 2025-03-11 08:55 | XMS_ITS | Data Portability ---
Author Organization [facility] Address [address] [place] [address] Care Team Providers Care Tip Finisher Name Role Phone [facility] Primary Care Provide r [facility] Referring Provider Assessment No assessment recorded. Plan of Treatment Reminders Order Date Submit Date Provider Last Modified By Organization Details Last Modified Time Details Appointments None record ed. Lab None record ed. Referral None record ed. Procedures None record ed. Surgeries None record ed. Imaging XR, hip, unilat eral, 2 or 3 view 023 09/29/19 23 [email or web address] [facility], [address], [place], [address], 3 17:13:15 Medication Orders None record ed. Patient TargetsNo targets recorded. Patient InstructionsNo instructions recorded. Reason for Referral None Reported. Results Created Date Observation Date Name Description Value Unit Range Abnormal Flag Note LastModifiedBy Organization Detail LastModifiedTime 11/06/19 23 11/05/2022 CT, pelvi s, w/o contr ast No observ ation record ed. [email or web address] [facility] ([facility] [address], [place], [address], 11/05/2022 15:58:29 Result Notes None recorded. Problems Name Problem SNOMED Code Status Onset Date Resolution Date Notes Provider Name and Address Organization Details Recorded Time Chronic pain of right upper limb 25097139103 686292 Active 2016 Chronic right shoulder pain Not Available [facility] 5 00:38:07 Surgical follow-up 932909711 Active 2017 Postop check Not Available [facility] 5 00:38:06 Arthritis of right hip 46960600408 15129 Active 2020 Arthritis of right hip Not Available [facility] 5 00:38:05 Degenerat ion of lumbar intervert ebral disc 46336964 Active 2020 DDD (degenera tive disc disease), lumbar Not Available [facility] 5 00:38:06 Low back pain 006825571 Active 2020 Lumbar back pain with radiculop athy affecting right lower extremity Not Available [facility] 5 00:38:06 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 Medical Equipment None Reported. Allergies Allergen ID Allergen Name Allergen Category Reaction Reaction Severity Criticality Documentation Date Start Date Code Code System Note Provider Name and Address Organization Details Recorded Time 691856 honey bee venom environme nt Not available Not available Not available 03/05/20252020 49485 7 RxNorm React ion: Swell ing, sever ity: Unkno wn;LO CALIZ ED Not Available [facility] 5 01:31:38 1241 metoprolo l Not available Not available Not available Not available 09/10/2022 6918 RxNorm Sotero [place], [place] [facility] 3 08:36:41 1242 honey bee venom medicatio n Not available Not available Not available 09/10/2022 91833 7 RxNorm Sotero [place], [place] [facility] 3 08:37:29 Medications Name Sig Start [...] Address Organization Details Last Updated DateTime 09/10/2022 22688.32 g 32.5 kg/m2 175.26 cm Sotero Johnson [place] [facility] 09/10/2022 08:37:48 Date Recorded Body height Provider Name an d Address Organization Details Last Updated DateTime 09/28/2022 175.26 cm Nayely Falcon [place] [facility] 09/28/2022 16:28:43 Social History None recorded. Functional Status None recorded. Mental Status None recorded. Family History Nothing Reported. Medical History No medical history recorded. Immunizations Vaccine Type Date Status Note Provider Nam e and Address Organization Details Recorded Time COVID-19, mRNA, LNP-S, PF, 30 mcg/0.3 mL dose 08/07/2020 completed Not Available [facility] 5 06:17:17 COVID-19, mRNA, LNP-S, PF, 30 mcg/0.3 mL dose 08/28/2020 completed Not Available [facility] 5 06:17:17 COVID-19, mRNA, LNP-S, PF, 30 mcg/0.3 mL dose 10/08/2020 completed Not Available [facility] 5 06:17:17 COVID-19, mRNA, LNP-S, PF, 30 mcg/0.3 mL dose 09/17/2021 completed Not Available [facility] 5 06:17:17 COVID-19, mRNA, LNP-S, PF, 30 mcg/0.3 mL dose 02/26/2022 completed Not Available [facility] 5 06:17:17 Past Encounters Encounter ID Performer Location Encounter Start Date Encounter Closed Date Diagnosis/Indication Diagnosis SNOMED-CT Code Diagnosis ICD10 Code Diagnosis IMO Codes Diagnosis Note [id number] KOMAL COLBERT PA-C [address] [address] 09/10/2022 08:20:12 09/10/2022 08:57:43 Postoperative care 064747499 Z48.89 History of total replacement of left hip joint 0796971574 044045 Z96.642 [id number] MD MARY Rodriguez [address] [address] 09/28/2022 15:57:28 09/28/2022 17:10:16 History of left hip replacement 2881704339 005447 Z96.642 Dislocatio n of hip joint prosthesis 179686869 Z96.649 [id number] MD MARY Rodriguez [address] [address] 11/09/2022 14:42:55 11/09/2022 15:17:26 Dislocation of hip joint prosthesis 437747381 Z96.649 Health Concerns Section Related Observation LastModified by Organization Detai ls LastModified Time None Recorded Concern Status LastModified by Organization Details LastModified Time None Recorded Advance Directives Directive None Recorded Payers Insurance Date Sequence Insurance Name Policy Number Policy Sung Covered Member ID Sung Member ID Guarantor Name 04/26/2023 2 [place]) [id number] Hernesto Toro [id number] Hernesto Toro 12/10/2022 1 [employer] [facility] - DOS PRIOR TO 2022 - MEDICARE [place]AGE [place] - [place]IG[place] (MEDICARE REPLACEMENT/ADV ANTAGE - HMO) Hernesto Toro [id number] Hernesto Toro 04/26/2023 1 [place] [employer] Hernesto Toro [id number] Hernesto Toro Notes Date Note Type [...] KOMAL COLBERT PA-C [address], [place], [address], [place] [facility] 09/11/2022 12:19:43 09/28/2022 text/html HPI: Patient [...] a anterior dislocation. He went to the [facility] emergency department and this was closed [...] Louie Benítez MD [address], [place], [address], [place] [facility] 09/29/2022 05:37:00 11/09/2022 text/html William is [...] Louie Benítez MD [address], [place], [address], [place] [facility] 11/09/2022 17:05:24
--- OUTSIDE RECORDS SUMMARY | 2025-03-11 08:55 | XMS_ITS | Encounter Summary ---
Author Organization [facility] Address [address] [place] [address] Care Team Providers Care Lokie Driver Name Role Phone Sophia Monroe MD Primary Care Provider [phone] Nahum Benavides MD Unavailable Cuba Claire MD Unavailable [phone] Alan Harris MD Unavailable [phone] Jessica Nelson MD Unavailable [phone] Sophia Monroe MD Unavailable [phone] Encounter Details Date Type Department Care Team (Late st Contact Info) Description 03/02/2024 Scanned Document [facility] [address] [place] [address] Urology, Scan Social History Tobacco Use Types [...] Description 07/05/2025 8:00 AM EST Office Visit [address] [place] [address] Sophia Monroe MD [address] [place], [place] [address] documented as of this encounter Visit Diagnoses Not on filedocumented in this encounter Care Teams Lokie Driver Relationship Specialty Start Date End Date Sophia Monroe MD [address] [place], [place] [address] PCP - General Internal Medicine 01/16/24 Sophia Monroe MD [address] [place] [address] PCP - MSSP Attributed 06/13/24 Nahum Benavides MD [address] [place] [address] [address] [place] [address] Neurology 01/17/24 Cuba Claire MD 100 [facility] 120 [place] [address] Referring Provider 01/17/24 Alan Harris [facility] [address] [address] Referring Provider Surgery, Orthopedic 01/17/24 Jessica Nelson MD [address] [place] [address] [address] [place] [address] Cardiovascular Disease 04/03/24 documented as of this encounter
--- OUTSIDE RECORDS SUMMARY | 2025-03-11 08:55 | XMS_ITS | Clinical Summary ---
Author Organization [facility] Address [address] [place] [address] Care Team Providers Care Engine Builder Name Role Phone Sophai Monroe MD Primary Care Provider [phone] Nahum Benavides MD Unavailable Cuba Claire MD Unavailable [phone] Alan Harris MD Unavailable [phone] Jessica Nelson MD Unavailable [phone] Sophia Monroe MD Unavailable [phone] Allergies Active Allergy Reactions Criticality Noted [...] Refills, Maintenance, 03/11/23 15:04:00 EDT, [facility], 60, SPRAY 1 SPRAY INTO BOTH NARES [...] medically necessary) auto 5-15 cmH2O, EPR 3 signal timer, heated humidification, heated tubing, Air[employer] N30 or patient preference, [employer] data link to be active for indefinite [...] Type Department Care Team Description 01/30/[address] [address] Sophia Monroe MD Anxiety 01/03/2025 10:00 AM EDT Office Visit [address] [address] Sophia Monroe MD Routine medical exam (Primary [...] drink = 0.6 oz pur e alcohol) [facility] Utilities Answer Date Recorded In the [...] and Family Not on file 01/03/2025 Attends [employer] Not on file 01/03 Active Member [...] any time in the past 12 m [facility], were you homeless or living in a retirement (including now)? No 01/03/2025 Education Answer Date [...] 07/05/2025 8:00 AM EST Office Visit [address] [place] [address] Sophia Monroe MD [address] [place] [address] Health Maintenance Due Date Last Done Comments [...] topic Insurance MEDICARE PART A & B [facility] Care Teams Engine Builder Relationship Specialty Start Date End Date Sophia Monroe MD [address] [place] [address] PCP - General Internal Medicine 01/16/24 Sophia Monroe MD [address] [place] [address] PCP - MSSP Attributed 06/13/24 Nahum Benavides MD [address] [place] [address] [address] [place] [address] Neurology 01/17/24 Cuba Claire MD 100 [facility] 120 [place] [address] Referring Provider 01/17/24 Alan Harris MD [address] [address] Referring Provider Surgery, Orthopedic 01/17/24 Jessica Nelson MD 3300 [facility] Second Floor [facility] [place] [address] Cardiovascular Disease 04/03/24
--- OUTSIDE RECORDS SUMMARY | 2025-03-11 08:55 | XMS_ITS | Encounter Summary ---
Author Organization [facility] Address [address] [place] [address] Care Team Providers Care Senior Sas Programmer Name Role Phone Sophia Monroe MD Primary Care Provider [phone] Nahum Benavides MD Unavailable Cuba Claire MD Unavailable Alan Harris MD Unavailable [phone] Jessica Nelson MD Unavailable [phone] Sophia Monroe MD Unavailable [phone] Encounter Details Date Type Department Care Team (Late st Contact Info) Description 08/22/2024 Scanned Document [address] [phone] Kelsi Bonner MD [address] [place] [address] Social History Tobacco Use Types Packs/Day [...] Description 07/05/2025 8:00 AM EST Office [facility] 100 [facility] [address] [place] [address] Sophia Monroe MD 100 [place] [address] documented as of this encounter Visit Diagnoses Not on filedocumented in this encounter Care Teams Senior Sas Programmer Relationship Specialty Start Date End Date Sophia Monroe MD [address] [place] [address] PCP - General Internal Medicine 01/16/24 Sophia Monroe MD [address] [place] [address] PCP - MSSP Attributed 06/13/24 Nahum Benavides MD [address] [place] [address] 503 [place] [address] Neurology 01/17/24 Cuba Claire MD 100 [facility] 120 [place] [address] Referring Provider 01/17/24 Alan Harris MD [address] [place] [address] Referring Provider Surgery, Orthopedic 01/17/24 Jessica Nelson MD [address] [place] [address] [place] [address] Cardiovascular Disease 04/03/24 documented as of this encounter
== END 2025-03-11 09:30 | disposition home or self-care (01) ==
LOC: HO.HOS 08:33
PROVIDERS: Visit Provider Orthopaedic Surgery
DX: S52.121A Displaced fracture of head of right radius, initial encounter for closed fracture (principal)
CPT/HCPCS: 99213

== ENCOUNTER → 2025-03-11 08:32 | Outpatient (BNVA) | payer MEDICARE, SELFPAY | PROVIDERS: Visit Provider Orthopaedic Surgery | DX: S52.121D Displaced fracture of head of right radius, subsequent encounter for closed fracture with routine healing (principal) | CPT/HCPCS: 99212 ==